=== PATIENT | female | born 1935 | race Caucasian/White ===

== ENCOUNTER → 2018-07-07 14:44 | Outpatient (CLI) | payer OTHER, SELFPAY ==
[2018-07-07 15:22] LABS: INR 2.5 (0.9-1.3); Prothrombin Time 27.5 SECONDS (10.1-12.7)
== END ==
PROVIDERS: Family Provider Family Medicine; PCP Family Medicine; Visit Provider Internal Medicine
DX: Z79.01 Long term (current) use of anticoagulants (principal)
CPT/HCPCS: 36415; 85610

== ENCOUNTER → 2018-11-06 14:12 | Outpatient (CLI) | payer OTHER, SELFPAY ==
[2018-11-06 16:03] LABS: Bacteria Urine None Seen
[2018-11-06 16:40] LABS: Appearance Urine UA CLOUDY; Bilirubin Urine UA NEGATIVE (NEGATIVE); Color Urine UA YELLOW; Glucose Urine UA NEGATIVE (Negative); Ketones Urine UA NEGATIVE (NEGATIVE); Leukocyte Esterase Urine UA 1+ (NEGATIVE); Nitrite Urine UA POSITIVE (Negative); Occult Blood Urine UA 1+ (Negative); Protein Urine UA TRACE (Negative); Urobilinogen Urine UA 0.2 E.U./dL (0.2); pH Urine UA 7.5 (4.5-8.0)
[2018-11-06 16:55] LABS: RBC Urine 5-10/HPF (0-5/HPF); Squamous Epithelial Cell Urine 0-1 /HPF; WBC Urine 30-100/HPF (0-5/HPF)
[2018-11-06 16:56] LABS: Culture Indicated Urine Specimen Cultured
== END ==
PROVIDERS: Family Provider Family Medicine; PCP Family Medicine; Visit Provider Registered Nurse
DX: N39.0 Urinary tract infection, site not specified (principal)
CPT/HCPCS: 81001; 87077; 87086; 87186

== ENCOUNTER → 2018-11-06 14:29 | Outpatient (CLI) | payer OTHER, SELFPAY ==
[2018-11-06 15:19] LABS: INR 1.7 (0.9-1.3); Prothrombin Time 20.4 SECONDS (10.1-12.7)
== END ==
PROVIDERS: Family Provider Family Medicine; PCP Family Medicine; Visit Provider Registered Nurse
DX: I82.409 Acute embolism and thrombosis of unspecified deep veins of unspecified lower extremity (principal); Z79.01 Long term (current) use of anticoagulants
CPT/HCPCS: 36415; 81001; 85610; 87077; 87086; 87186

== ENCOUNTER → 2019-01-26 09:32 | Outpatient (CLI) | payer OTHER, SELFPAY ==
--- NOTE | 2019-01-26 | DI.MG.S_ITS ---
BILATERAL DIGITAL SCREENING MAMMOGRAM 3D/2D WITH CAD: 01/26/2019 CLINICAL: Routine screening. Comparison is made to exams dated: 01/09/2018 mammogram, 11/29/2016 mammogram, 11/28/2015 mammogram, and 04/06/2014 mammogram - [facility]. There are scattered fibroglandular elements in both breasts. Current study was also evaluated with a Computer Aided Detection (CAD) system. There are benign vascular calcifications in both breasts. No significant masses, calcifications, or other findings are seen in either breast. There has been no significant interval change. IMPRESSION: There is no mammographic evidence of malignancy. A 1 year screening mammogram is recommended. This exam was interpreted at Station ID: [id number]. NOTE: For mammograms, a report in lay terms will be sent to the patient. Approximately 15% of breast malignancies will not be visualized mammographically. In the management of a palpable breast mass, a negative mammogram must not discourage biopsy of a clinically suspicious lesion. Electronically Signed By: Phil caldwell/yasmin:01/26/2019 13:56:38 letter sent: Normal Exam ACR BI-RADS Category 2: Benign Finding(s) 3342F
== END ==
PROVIDERS: PCP Family Medicine; Visit Provider Family Medicine
DX: Z12.31 Encounter for screening mammogram for malignant neoplasm of breast (principal)
CPT/HCPCS: 77063; 77067

== ENCOUNTER → 2019-01-27 10:05 | Outpatient (CLI) | payer OTHER, SELFPAY ==
[2019-01-27 10:44] LABS: INR 1.5 (0.9-1.3); Prothrombin Time 17.8 SECONDS (10.1-12.7)
[2019-01-27 12:53] LABS: Thyroid Stimulating Hormone 2.71 uIU/mL (0.47-4.68)
== END ==
PROVIDERS: PCP Family Medicine; Visit Provider Family Medicine
DX: Z86.718 Personal history of other venous thrombosis and embolism (principal); E03.9 Hypothyroidism, unspecified
CPT/HCPCS: 36415; 84443; 85610

== ENCOUNTER → 2019-02-02 10:06 | Outpatient (CLI) | payer OTHER, SELFPAY ==
--- NOTE | 2019-02-02 10:07 | DI.RAD.S_ITS ---
PROCEDURE: FL BARIUM SWALLOW INDICATIONS: dysphagia COMPARISON: [facility], CR, CHEST 2 VIEW, 10/28/2014, 14:10. [facility], MG, MM SCREENING MAMMO BI, 01/26/2019, 9:51. FINDINGS: Function: There is mild esophageal dysmotility. No elicited gastroesophageal reflux. There is normal transit of a calibrated barium tablet through the esophagus into the stomach. Morphology: Air-contrast images demonstrate normal mucosal morphology. There is a large hiatal hernia with 40% of the stomach within the thorax. The gastroesophageal junction is suboptimally visualized because of a large hiatal hernia. The GE junction may be narrowed. Single contrast views show no esophageal strictures, extrinsic mass effects, or diverticula. IMPRESSION: 1. Large hiatal hernia. 2. The gastroesophageal junction is suboptimally visualized and may be narrowed. There is, however, no obstruction of the calibrated barium pill. 3. Mild esophageal dysmotility. Dictated by: Emigdio Alas M.D. on 02/02/2019 at 11:10 Approved by: Emigdio Alas M.D. on 02/02/2019 at 11:16
== END ==
PROVIDERS: PCP Family Medicine; Visit Provider Family Medicine
DX: R13.10 Dysphagia, unspecified (principal); K44.9 Diaphragmatic hernia without obstruction or gangrene; K22.4 Dyskinesia of esophagus
CPT/HCPCS: 74220

== ENCOUNTER → 2019-02-09 11:59 | Outpatient (CLI) | payer OTHER, SELFPAY ==
[2019-02-09 13:38] LABS: INR 1.8 (0.9-1.3); Prothrombin Time 20.9 SECONDS (10.1-12.7)
== END ==
PROVIDERS: PCP Family Medicine; Visit Provider Family Medicine
DX: I82.409 Acute embolism and thrombosis of unspecified deep veins of unspecified lower extremity (principal)
CPT/HCPCS: 36415; 85610

== ENCOUNTER → 2019-04-26 11:24 | Outpatient (CLI) | payer OTHER, SELFPAY ==
--- NOTE | 2019-04-26 11:27 | DI.RAD.S_ITS ---
PROCEDURE: XR CHEST 2V INDICATIONS: breast plate pain from fall TECHNIQUE: 2 views of the chest were acquired. COMPARISON: [facility], CHEST 2 VIEW, 10/28/2014, 14:10. [facility], CHEST 2 VIEW, 03/04/2014, 14:20. FINDINGS: Surgical changes and devices: None. Lungs and pleura: Lungs are clear. No pleural effusions or pneumothorax. Moderately large air-fluid level in the hiatal hernia behind the heart. Mediastinum: Mediastinal contours are normal. Heart size is normal. Bones and chest wall: No suspicious bony abnormalities. Soft tissues appear unremarkable. IMPRESSION: Moderately large hiatal hernia behind the heart, containing air-fluid level. No acute trauma found. Dictated by: Arie Valdes M.D. on 04/26/2019 at 12:39 Approved by: Arie Valdes M.D. on 04/26/2019 at 12:42
[2019-04-26 12:28] LABS: Add Manual Diff / Slide Review NO; Basophils Absolute Auto 0 /uL (0-100); Basophils Percent Auto 1.1 % (0-2); Eosinophils Absolute Auto 100 /uL (0-450); Eosinophils Percent Auto 2.2 % (2-4); Hematocrit 37.1 % (36-46); Hemoglobin 12.3 g/dL (12.0-16.0); Lymphocytes Absolute Auto 700 /uL (1100-4500); Lymphocytes Percent Auto 21.9 % (25-40); Mean Corpuscular HGB Conc 33.1 % (30-36); Mean Corpuscular Hemoglobin 29.6 PG (26-34); Mean Corpuscular Volume 89.4 fL (80-100); Monocytes Absolute Auto 500 /uL (0-900); Monocytes Percent Auto 15.6 % (3-14); Neutrophils Absolute Auto 1800 /uL (1500-7000); Neutrophils Percent Auto 59.2 % (50-75); Platelet Count 267 X10^3/uL (150-400); Red Blood Cell Count 4.15 X10^6/uL (4.0-5.2); Red Cell Distribution Width 15.6 % (11.6-14.8); White Blood Cell Count 3.1 X10^3/uL (4.5-11.0)
[2019-04-26 13:58] LABS: HEMOLYSIS < 15 (0-50); Iron 62 ug/dL (37-170)
[2019-04-26 14:09] LABS: Percent Iron Saturation 15 % (15-50); Total Iron Binding Capacity 424 ug/dL (265-497); Transferrin 329 mg/dL (206-381)
[2019-04-26 15:12] LABS: Folate 7.7 ng/mL (2.76-20.0); Vitamin B12 343 pg/mL (239-931)
== END ==
PROVIDERS: PCP Family Medicine; Visit Provider Family Medicine
DX: R07.9 Chest pain, unspecified (principal); R53.83 Other fatigue; K44.9 Diaphragmatic hernia without obstruction or gangrene
CPT/HCPCS: 36415; 71046; 82607; 82746; 83540; 83550; 85025

== ENCOUNTER 2019-06-22 10:30 | Outpatient (RCR) | payer OTHER, SELFPAY ==
--- NOTE | 2019-05-12 17:47 | PT.OIE ---
Current Diagnoses Pain in left shoulder (05/12/19) Stiffness of left shoulder, not elsewhere classified (05/12/19) Muscle weakness (generalized) (05/12/19) Unspecified injury of muscle(s) and tendon(s) of the rotator cuff of left shoulder, subsequent encounter (05/12/19) Past Medical History (Last Reviewed 05/14/18 @ 17:04 by Arina Dallas MD) Depression (Chronic) DVT (deep venous thrombosis) (Resolved) Hyperlipidemia (Chronic) Hypothyroidism (Chronic) Osteoporosis (Chronic) Colon polyps (Resolved 2014) Tubular adenoma (Resolved 2014) Provider Visit Care Team Role Provider Type Eliz Ha MD Attending Provider Physician Primary Care Provider Specialty: [facility] Practice Address: [address] [place] [address] Email: [email or web address] Physical Therapy Initial Evaluation PT-OP-A Visit Information Start: 05/12/19 16:18 Freq: Status: Active Protocol: Document 05/12/19 13:45 DCW (Rec: 05/12/19 16:37 DCW [id number]) Out-Patient Physical Therapy Visit Information Visit Information Visit Type Initial Evaluation Visit Start Time 13:45 Visit Stop Time 14:30 Total Visit Minutes 45 Visit Number 1 Number of CHIEF STEWARD/STEWARDESS Visits 0 Evaluation Information Evaluation Date 05/12/19 PT-OP-B Current Condition Start: 05/12/19 16:18 Freq: Status: Active Protocol: Document 05/12/19 13:45 DCW (Rec: 05/12/19 16:37 DCW [id number]) Current Condition History of Current Condition Onset Date Two months Current Complaints Left shoulder pain, weakness, and decreasing ROM History of Current Condition Pt is an 84 year old female presenting with a two month- long history of left shoulder pain and loss of motion. Pt reports that she typically wears very heavy-duty support stockings on her legs. She was attempting to take them off, and had her left one down around her ankle, had her finger looped inside, and was attempting to work her stocking over her heel, when she suddenly got a terrible pain in her shoulder. Since that time, pt has had pain and limitations when lifting anything up chest-high, pushing open doors, or trying to reach back and get her sleeve on or off. This pain greatly affects her on a daily basis, especially because she is left-hand dominant. Treatment Goals Patient/Caregiver Goals I want to find out what the problem is, and learn how to make it feel better. Prior Functional Status Baseline Function- ADL's Independent Baseline Function- Mobility Independent Current Functional Impairments (Reported) Functional Limitations- ADL's Pt has increase pain lifting drinks, reaching behind her back to put her arm in a sleeve, or push doors open. PT-OP-C Subjective Start: 05/12/19 16:18 Freq: Status: Active Protocol: Document 05/12/19 13:45 DCW (Rec: 05/12/19 16:37 DCW [id number]) OP-PT Subjective Patient Comments Patient Comments I also have back problems that need taken care of, and I recently fell off my bed and sprained all of the muscles in the front of my chest, but I think they both just need time to heal, so I'm much more concerned about addressing my shoulder. Patient Reported Progress Improving Patient Questionnaires Quick Dash- Upper Extremity Quick Dash UE Score 37.5 Quick Dash UE Impairment 20 to 39% Impaired (Score 20- 39) OP-PT Pain Assessment Pain Assessment Grid Paper Pain Assessment Grid Completed Yes Location Left Shoulder Intensity 3 Scale Used Numeric (1 - 10) PT-OP-E Functional Tests Start: 05/12/19 16:18 Freq: Status: Active Protocol: Document 05/12/19 13:45 DCW (Rec: 05/12/19 16:37 DCW [id number]) Functional Tests Apley's Scratch Test Action 2- Left Left occiput Action 2- Right T4 Action 3- Left L4 Action 3- Right T6 PT-OP-F Manual Assessment Start: 05/12/19 16:18 Freq: Status: Active Protocol: Document 05/12/19 13:45 DCW (Rec: 05/12/19 16:37 DCW [id number]) Manual Assessments Soft Tissue Assessment Soft Tissue Mobility Assessment Moderate tone and tenderness to palpation 3/4 - Wincing and withdraw along infraspinatus, supraspinatus, and subscapularis PT-OP-K Range of Motion Start: 05/12/19 16:18 Freq: Status: Active Protocol: Document 05/12/19 13:45 DCW (Rec: 05/12/19 16:37 DCW [id number]) Shoulder Goniometric Range of Motion Shoulder Right Shoulder ROM WFL Yes Left Passive Testing Position Supine Flexion 120 Abduction 135 Left Active Shoulder ROM WFL No Testing Position Sitting Flexion 94 Abduction 72 Shoulder ROM Limitations Shoulder ROM Limitations Muscle Weakness Muscle Tone Pain PT-OP-L Special Tests Start: 05/12/19 16:18 Freq: Status: Active Protocol: Document 05/12/19 13:45 DCW (Rec: 05/12/19 16:37 DCW [id number]) Special Tests Shoulder Special Tests Painful Arc Test Results Positive L Lift-Off Rotator Cuff Test Results Unable to lift Passive ER Rotator Cuff Test Results Positive L Thakkar [place] Impingement Test Results Negative Drop Arm Rotator Cuff Test Results Positive L Belly Press Test Results Negative PT-OP-M Strength Start: 05/12/19 16:18 Freq: Status: Active Protocol: Document 05/12/19 13:45 DCW (Rec: 05/12/19 16:37 DCW [id number]) Shoulder Strength Shoulder Manual Muscle Testing Left Reason Not Measured Pain PT-OP-Q Treatments Start: 05/12/19 16:18 Freq: Status: Active Protocol: Document 05/12/19 13:45 DCW (Rec: 05/12/19 16:37 DCW [id number]) Therapeutic Exercises Standing Exercises Shoulder ER Standing Exercise Name ER Side left Resistance Lv 1 Equipment Used T-band Shoulder IR Standing Exercise Name IR Side left Resistance Lv 1 Equipment Used T-band PT-OP-T Assessment and Plan Start: 05/12/19 16:18 Freq: Status: Active Protocol: Document 05/12/19 13:45 DCW (Rec: 05/12/19 17:46 DCW [id number]) Physical Therapy Assessment Rehab Potential Rehabilitation Potential Good Evaluation Complexity Number of Personal Factors/Comorbidities 1-2 Number of Body Systems Impaired 3 Clinical Presentation at Evaluation Stable Impairments Impairments Functional Activities Functional Mobility Pain ROM Soft Tissue Mobility Strength Tone Goals Three Impairment Limited left shoulder ROM Short Term Goal (STG) Passive left shoulder ROM to 150? for both flexion and abduction STG Duration 06/12/19 Half-Way Goal (LTG) Active left shoulder ROM to 110? for both flexion and extension LTG Duration 07/13/19 Two Impairment Pt experiences increased pain with lifting arms Short Term Goal (STG) Pt to lift drink off table to drink from with no increased shoulder pain STG Duration 06/12/19 Half-Way Goal (LTG) Pt to reach behind her back to put arm in coat sleeve with no increased pain LTG Duration 07/13/19 One Impairment Pt does not have an appropriate home exercise program Short Term Goal (STG) Pt to be independent and compliant with an appropriate HEP STG Duration 06/12/19 Assessment Summary Assessment Pt is an 84 year-old female presenting with signs and symptoms of a left rotator cuff sprain or mild tear. Pt may have involvement of multiple muscles, with her painful arc and drop arm tests suggestive of supraspinatus involvement, and lift-off test and passive ER pain suggestive of derangement of the subscapularis. No indication of labral involvement at this time. Pt will likely benefit from gentle strengthening, ROM/ flexibility exercises, STM, and pain-control modalities. If pt does not show appropriate progress over the next month, may be necessary to undergo imaging to determine extent of damage. Physical Therapy Plan Frequency and Duration Frequency of Treatment 2x/Week Duration of Treatment 12 weeks Plan of Care Start Date 05/12/19 Plan of Care End Date 07/21/19 Therapeutic Interventions Therapeutic Interventions Home Exercise Program Joint Mobilizations Manual Therapy Patient/Caregiver Education Self-Care/Home Management Soft Tissue Mobilization Taping Therapeutic Activities Therapeutic Exercises Modalities Cold Pack/Ice Massage Electric Stimulation Hot Packs Ultrasound Next Visit Focus/Plan Next Note Type Treatment Note Next Visit Plan Gentle strengthening, STM, ROM
--- NOTE | 2019-05-12 17:48 | PT.OPPOC ---
Current Diagnoses Pain in left shoulder (05/12/19) Stiffness of left shoulder, not elsewhere classified (05/12/19) Muscle weakness (generalized) (05/12/19) Unspecified injury of muscle(s) and tendon(s) of the rotator cuff of left shoulder, subsequent encounter (05/12/19) Provider Visit Care Team Role Provider Type Eliz Ha MD Attending Provider Physician Primary Care Provider Specialty: [facility] Practice Address: [address] [place] [address], [facility] Email: [email or web address] Plan Of Care PT-OP-T Assessment and Plan Start: 05/12/19 16:18 Freq: Status: Active Protocol: Document 05/12/19 13:45 DCW (Rec: 05/12/19 17:46 DCW [id number]) Physical Therapy Assessment Rehab Potential Rehabilitation Potential Good Evaluation Complexity Number of Personal Factors/Comorbidities 1-2 Number of Body Systems Impaired 3 Clinical Presentation at Evaluation Stable Impairments Impairments Functional Activities Functional Mobility Pain ROM Soft Tissue Mobility Strength Tone Goals Three Impairment Limited left shoulder ROM Short Term Goal (STG) Passive left shoulder ROM to 150? for both flexion and abduction STG Duration 06/12/19 Concrete Technician Goal (LTG) Active left shoulder ROM to 110? for both flexion and extension LTG Duration 07/13/19 Two Impairment Pt experiences increased pain with lifting arms Short Term Goal (STG) Pt to lift drink off table to drink from with no increased shoulder pain STG Duration 06/12/19 Residential Goal (LTG) Pt to reach behind her back to put arm in coat sleeve with no increased pain LTG Duration 07/13/19 One Impairment Pt does not have an appropriate home exercise program Short Term Goal (STG) Pt to be independent and compliant with an appropriate HEP STG Duration 06/12/19 Assessment Summary Assessment Pt is an 84 year-old female presenting with signs and symptoms of a left rotator cuff sprain or mild tear. Pt may have involvement of multiple muscles, with her painful arc and drop arm tests suggestive of supraspinatus involvement, and lift-off test and passive ER pain suggestive of derangement of the subscapularis. No indication of labral involvement at this time. Pt will likely benefit from gentle strengthening, ROM/ flexibility exercises, STM, and pain-control modalities. If pt does not show appropriate progress over the next month, may be necessary to undergo imaging to determine extent of damage. Physical Therapy Plan Frequency and Duration Frequency of Treatment 2x/Week Duration of Treatment 12 weeks Plan of Care Start Date 05/12/19 Plan of Care End Date 07/21/19 Therapeutic Interventions Therapeutic Interventions Home Exercise Program Joint Mobilizations Manual Therapy Patient/Caregiver Education Self-Care/Home Management Soft Tissue Mobilization Taping Therapeutic Activities Therapeutic Exercises Modalities Cold Pack/Ice Massage Electric Stimulation Hot Packs Ultrasound Next Visit Focus/Plan Next Note Type Treatment Note Next Visit Plan Gentle strengthening, STM, ROM Plan of Care Dates Plan of Care Start Date 05/12/19 Plan of Care End Date 07/21/19 Please Sign and Return: I have reviewed this Plan of Care and certify that the skilled therapy services above are required to meet the patient?s needs. Physician Signature Date Printed Name and Credentials Clinical Instructor Signature Printed Name and Credentials
--- NOTE | 2019-06-01 17:39 | PT.OTN ---
Current Diagnoses Pain in left shoulder (06/01/19) Stiffness of left shoulder, not elsewhere classified (06/01/19) Muscle weakness (generalized) (06/01/19) Unspecified injury of muscle(s) and tendon(s) of the rotator cuff of left shoulder, subsequent encounter (06/01/19) Physical Therapy Treatment Note PT-OP-A Visit Information Start: 05/12/19 16:18 Freq: Status: Active Protocol: Document 06/01/19 16:00 DCW (Rec: 06/01/19 16:45 DCW [id number]) Out-Patient Physical Therapy Visit Information Visit Information Visit Type Initial Evaluation Visit Start Time 16:00 Visit Stop Time 16:45 Total Visit Minutes 45 Visit Number 2 Number of SHOE DRESSER Visits 0 Evaluation Information Evaluation Date 05/12/19 PT-OP-B Current Condition Start: 05/12/19 16:18 Freq: Status: Active Protocol: Document 05/12/19 13:45 DCW (Rec: 05/12/19 16:37 DCW [id number]) Current Condition History of Current Condition Onset Date Two months Current Complaints Left shoulder pain, weakness, and decreasing ROM History of Current Condition Pt is an 84 year old female presenting with a two month- long history of left shoulder pain and loss of motion. Pt reports that she typically wears very heavy-duty support stockings on her legs. She was attempting to take them off, and had her left one down around her ankle, had her finger looped inside, and was attempting to work her stocking over her heel, when she suddenly got a terrible pain in her shoulder. Since that time, pt has had pain and limitations when lifting anything up chest-high, pushing open doors, or trying to reach back and get her sleeve on or off. This pain greatly affects her on a daily basis, especially because she is left-hand dominant. Treatment Goals Patient/Caregiver Goals I want to find out what the problem is, and learn how to make it feel better. Prior Functional Status Baseline Function- ADL's Independent Baseline Function- Mobility Independent Current Functional Impairments (Reported) Functional Limitations- ADL's Pt has increase pain lifting drinks, reaching behind her back to put her arm in a sleeve, or push doors open. PT-OP-C Subjective Start: 05/12/19 16:18 Freq: Status: Active Protocol: Document 06/01/19 16:00 DCW (Rec: 06/01/19 16:45 DCW [id number]) OP-PT Subjective Patient Comments Patient Comments Pt feel like she has improved some since her initial evaluation, if nothing else, just with the time that has passed letting it heal a little bit. PT-OP-E Functional Tests Start: 05/12/19 16:18 Freq: Status: Active Protocol: Document 05/12/19 13:45 DCW (Rec: 05/12/19 16:37 DCW [id number]) Functional Tests Apley's Scratch Test Action 2- Left Left occiput Action 2- Right T4 Action 3- Left L4 Action 3- Right T6 PT-OP-F Manual Assessment Start: 05/12/19 16:18 Freq: Status: Active Protocol: Document 05/12/19 13:45 DCW (Rec: 05/12/19 16:37 DCW [id number]) Manual Assessments Soft Tissue Assessment Soft Tissue Mobility Assessment Moderate tone and tenderness to palpation 3/4 - Wincing and withdraw along infraspinatus, supraspinatus, and subscapularis PT-OP-K Range of Motion Start: 05/12/19 16:18 Freq: Status: Active Protocol: Document 05/12/19 13:45 DCW (Rec: 05/12/19 16:37 DCW [id number]) Shoulder Goniometric Range of Motion Shoulder Right Shoulder ROM WFL Yes Left Passive Testing Position Supine Flexion 120 Abduction 135 Left Active Shoulder ROM WFL No Testing Position Sitting Flexion 94 Abduction 72 Shoulder ROM Limitations Shoulder ROM Limitations Muscle Weakness Muscle Tone Pain PT-OP-L Special Tests Start: 05/12/19 16:18 Freq: Status: Active Protocol: Document 05/12/19 13:45 DCW (Rec: 05/12/19 16:37 DCW [id number]) Special Tests Shoulder Special Tests Painful Arc Test Results Positive L Lift-Off Rotator Cuff Test Results Unable to lift Passive ER Rotator Cuff Test Results Positive L Thakkar [place] Impingement Test Results Negative Drop Arm Rotator Cuff Test Results Positive L Belly Press Test Results Negative PT-OP-M Strength Start: 05/12/19 16:18 Freq: Status: Active Protocol: Document 05/12/19 13:45 DCW (Rec: 05/12/19 16:37 DCW [id number]) Shoulder Strength Shoulder Manual Muscle Testing Left Reason Not Measured Pain PT-OP-Q Treatments Start: 05/12/19 16:18 Freq: Status: Active Protocol: Document 06/01/19 16:00 DCW (Rec: 06/01/19 16:45 DCW [id number]) Cardio Equipment Upper Body Ergometer (UBE) Duration (Minutes) 5 RPM 60 Seat Position 11 Height 3.5 (2.5 bkwd) Other Fwd/Bkwd Therapeutic Exercises Sitting Exercises Shoulder AAROM Sitting Exercise Name AAROM Flexion and Abduction Side bilateral Equipment Used Pulleys Standing Exercises Shoulder Abduction Standing Exercise Name Abduction Side bilateral Resistance 1# Shoulder Flexion Standing Exercise Name Flexion Side bilateral Resistance 1# Rows Standing Exercise Name Rows Side bilateral Resistance Lv 1 Equipment Used T-band Shoulder Adduction Standing Exercise Name Adduction Side bilateral Resistance Lv 1 Equipment Used T-band Shoulder Extension Standing Exercise Name Extension Side bilateral Resistance Lv 1 Equipment Used T-band Manual Therapy Treatment Soft Tissue Mobilization Upper Trap Body Location L Upper Trap Mobilization Type Strumming Sustained Pressure Body Position Sitting Supraspinatus Body Location L Supraspinatus Mobilization Type Strumming Sustained Pressure Body Position Sitting PT-OP-T Assessment and Plan Start: 05/12/19 16:18 Freq: Status: Active Protocol: Document 06/01/19 16:00 DCW (Rec: 06/01/19 17:38 DCW [id number]) Physical Therapy Assessment Impairments Impairments Functional Activities Functional Mobility Pain ROM Soft Tissue Mobility Strength Tone Goals Three Impairment Limited left shoulder ROM Short Term Goal (STG) Passive left shoulder ROM to 150? for both flexion and abduction STG Duration 06/12/19 Clamp Truck Driver Goal (LTG) Active left shoulder ROM to 110? for both flexion and extension LTG Duration 07/13/19 Two Impairment Pt experiences increased pain with lifting arms Short Term Goal (STG) Pt to lift drink off table to drink from with no increased shoulder pain STG Duration 06/12/19 Clamp Truck Driver Goal (LTG) Pt to reach behind her back to put arm in coat sleeve with no increased pain LTG Duration 07/13/19 One Impairment Pt does not have an appropriate home exercise program Short Term Goal (STG) Pt to be independent and compliant with an appropriate HEP STG Duration 06/12/19 Assessment Summary Assessment Pt progressing well, improved ROM in her shoulder and active mobility today vs her initial evaluation. Pt's shoulder does fatigue quickly with activity, and can only tolerate light resistance. Physical Therapy Plan Frequency and Duration Frequency of Treatment 2x/Week Duration of Treatment 12 weeks Plan of Care Start Date 05/12/19 Plan of Care End Date 07/21/19 Therapeutic Interventions Therapeutic Interventions Home Exercise Program Joint Mobilizations Manual Therapy Patient/Caregiver Education Self-Care/Home Management Soft Tissue Mobilization Taping Therapeutic Activities Therapeutic Exercises Modalities Cold Pack/Ice Massage Electric Stimulation Hot Packs Ultrasound Next Visit Focus/Plan Next Note Type Treatment Note Next Visit Plan Gentle strengthening, STM, ROM
--- NOTE | 2019-06-22 11:15 | PT.OTN ---
Current Diagnoses Pain in left shoulder (06/22/19) Stiffness of left shoulder, not elsewhere classified (06/22/19) Muscle weakness (generalized) (06/22/19) Unspecified injury of muscle(s) and tendon(s) of the rotator cuff of left shoulder, subsequent encounter (06/22/19) Physical Therapy Treatment Note PT-OP-A Visit Information Start: 05/12/19 16:18 Freq: Status: Active Protocol: Document 06/22/19 10:30 DCW (Rec: 06/22/19 11:15 DCW [id number]) Out-Patient Physical Therapy Visit Information Visit Information Visit Type Treatment Note Visit Start Time 10:30 Visit Stop Time 11:15 Total Visit Minutes 45 Visit Number 3 Number of ENDLESS BED DRUM SANDER Visits 0 Evaluation Information Evaluation Date 05/12/19 PT-OP-B Current Condition Start: 05/12/19 16:18 Freq: Status: Active Protocol: Document 05/12/19 13:45 DCW (Rec: 05/12/19 16:37 DCW [id number]) Current Condition History of Current Condition Onset Date Two months Current Complaints Left shoulder pain, weakness, and decreasing ROM History of Current Condition Pt is an 84 year old female presenting with a two month- long history of left shoulder pain and loss of motion. Pt reports that she typically wears very heavy-duty support stockings on her legs. She was attempting to take them off, and had her left one down around her ankle, had her finger looped inside, and was attempting to work her stocking over her heel, when she suddenly got a terrible pain in her shoulder. Since that time, pt has had pain and limitations when lifting anything up chest-high, pushing open doors, or trying to reach back and get her sleeve on or off. This pain greatly affects her on a daily basis, especially because she is left-hand dominant. Treatment Goals Patient/Caregiver Goals I want to find out what the problem is, and learn how to make it feel better. Prior Functional Status Baseline Function- ADL's Independent Baseline Function- Mobility Independent Current Functional Impairments (Reported) Functional Limitations- ADL's Pt has increase pain lifting drinks, reaching behind her back to put her arm in a sleeve, or push doors open. PT-OP-C Subjective Start: 05/12/19 16:18 Freq: Status: Active Protocol: Document 06/22/19 10:30 DCW (Rec: 06/22/19 11:15 DCW [id number]) OP-PT Subjective Patient Comments Patient Comments Pt suffered a fall ~3 weeks ago while gardening when trying to pull against her garden hose, reports her whole chest was bruised, and she felt like she cracked a rib. Notes she is feeling better now, everything seems to be healing up. PT-OP-E Functional Tests Start: 05/12/19 16:18 Freq: Status: Active Protocol: Document 05/12/19 13:45 DCW (Rec: 05/12/19 16:37 DCW [id number]) Functional Tests Apley's Scratch Test Action 2- Left Left occiput Action 2- Right T4 Action 3- Left L4 Action 3- Right T6 PT-OP-F Manual Assessment Start: 05/12/19 16:18 Freq: Status: Active Protocol: Document 05/12/19 13:45 DCW (Rec: 05/12/19 16:37 DCW [id number]) Manual Assessments Soft Tissue Assessment Soft Tissue Mobility Assessment Moderate tone and tenderness to palpation 3/4 - Wincing and withdraw along infraspinatus, supraspinatus, and subscapularis PT-OP-K Range of Motion Start: 05/12/19 16:18 Freq: Status: Active Protocol: Document 05/12/19 13:45 DCW (Rec: 05/12/19 16:37 DCW [id number]) Shoulder Goniometric Range of Motion Shoulder Right Shoulder ROM WFL Yes Left Passive Testing Position Supine Flexion 120 Abduction 135 Left Active Shoulder ROM WFL No Testing Position Sitting Flexion 94 Abduction 72 Shoulder ROM Limitations Shoulder ROM Limitations Muscle Weakness Muscle Tone Pain PT-OP-L Special Tests Start: 05/12/19 16:18 Freq: Status: Active Protocol: Document 05/12/19 13:45 DCW (Rec: 05/12/19 16:37 DCW [id number]) Special Tests Shoulder Special Tests Painful Arc Test Results Positive L Lift-Off Rotator Cuff Test Results Unable to lift Passive ER Rotator Cuff Test Results Positive L Thakkar [place] Impingement Test Results Negative Drop Arm Rotator Cuff Test Results Positive L Belly Press Test Results Negative PT-OP-M Strength Start: 05/12/19 16:18 Freq: Status: Active Protocol: Document 05/12/19 13:45 DCW (Rec: 05/12/19 16:37 DCW [id number]) Shoulder Strength Shoulder Manual Muscle Testing Left Reason Not Measured Pain PT-OP-Q Treatments Start: 05/12/19 16:18 Freq: Status: Active Protocol: Document 06/22/19 10:30 DCW (Rec: 06/22/19 11:15 DCW [id number]) Cardio Equipment Upper Body Ergometer (UBE) Duration (Minutes) 5 RPM 60 Seat Position 12 Height 3 Other Fwd/Bkwd Therapeutic Exercises Standing Exercises PNF D1/D2 Flexion Standing Exercise Name PNF D1/D2 Flexion Side bilateral Resistance 2# Shoulder Abduction Standing Exercise Name Abduction Side bilateral Resistance 1# Shoulder Flexion Standing Exercise Name Flexion Side bilateral Resistance 1# Rows Standing Exercise Name Rows Side bilateral Resistance Lv 2 Equipment Used T-band Shoulder Adduction Standing Exercise Name Adduction Side bilateral Resistance Lv 2 Equipment Used T-band Shoulder Extension Standing Exercise Name Extension Side bilateral Resistance Lv 2 Equipment Used T-band Manual Therapy Treatment Soft Tissue Mobilization Upper Trap Body Location L Upper Trap Mobilization Type Strumming Sustained Pressure Body Position Sitting Supraspinatus Body Location L Supraspinatus Mobilization Type Strumming Sustained Pressure Body Position Sitting Joint Mobilizations GH Joint L GH Direction inferior Grade III Body Position Sitting PT-OP-T Assessment and Plan Start: 05/12/19 16:18 Freq: Status: Active Protocol: Document 06/22/19 10:30 DCW (Rec: 06/22/19 11:15 DCW [id number]) Physical Therapy Assessment Impairments Impairments Functional Activities Functional Mobility Pain ROM Soft Tissue Mobility Strength Tone Goals Three Impairment Limited left shoulder ROM Short Term Goal (STG) Passive left shoulder ROM to 150? for both flexion and abduction STG Duration 06/12/19 Prison Goal (LTG) Active left shoulder ROM to 110? for both flexion and extension LTG Duration 07/13/19 Two Impairment Pt experiences increased pain with lifting arms Short Term Goal (STG) Pt to lift drink off table to drink from with no increased shoulder pain STG Duration 06/12/19 Finish Cleaner Goal (LTG) Pt to reach behind her back to put arm in coat sleeve with no increased pain LTG Duration 07/13/19 One Impairment Pt does not have an appropriate home exercise program Short Term Goal (STG) Pt to be independent and compliant with an appropriate HEP STG Duration 06/12/19 Assessment Summary Assessment Pt showing improvement, even from beginning of session to end, with tone and soreness in shoulder. Physical Therapy Plan Frequency and Duration Frequency of Treatment 2x/Week Duration of Treatment 12 weeks Plan of Care Start Date 05/12/19 Plan of Care End Date 07/21/19 Therapeutic Interventions Therapeutic Interventions Home Exercise Program Joint Mobilizations Manual Therapy Patient/Caregiver Education Self-Care/Home Management Soft Tissue Mobilization Taping Therapeutic Activities Therapeutic Exercises Modalities Cold Pack/Ice Massage Electric Stimulation Hot Packs Ultrasound Next Visit Focus/Plan Next Note Type Treatment Note Next Visit Plan Gentle strengthening, STM, ROM
--- NOTE | 2019-08-27 08:47 | PT.OPDS ---
Current Diagnoses Pain in left shoulder (06/22/19) Stiffness of left shoulder, not elsewhere classified (06/22/19) Muscle weakness (generalized) (06/22/19) Unspecified injury of muscle(s) and tendon(s) of the rotator cuff of left shoulder, subsequent encounter (06/22/19) Visit Care Team Role Provider Type Eliz Ha MD Attending Provider Physician Primary Care Provider Specialty: [facility] Address: [address] [place] [address], [place], [place], [facility] Email: [email or web address] Visit Number Visit Number 3 Discharge Summary PT-OP-B Current Condition Start: 05/12/19 16:18 Freq: Status: Active Protocol: Document 05/12/19 13:45 DCW (Rec: 05/12/19 16:37 DCW [id number]) Current Condition History of Current Condition Onset Date Two months Current Complaints Left shoulder pain, weakness, and decreasing ROM History of Current Condition Pt is an 84 year old female presenting with a two month- long history of left shoulder pain and loss of motion. Pt reports that she typically wears very heavy-duty support stockings on her legs. She was attempting to take them off, and had her left one down around her ankle, had her finger looped inside, and was attempting to work her stocking over her heel, when she suddenly got a terrible pain in her shoulder. Since that time, pt has had pain and limitations when lifting anything up chest-high, pushing open doors, or trying to reach back and get her sleeve on or off. This pain greatly affects her on a daily basis, especially because she is left-hand dominant. Treatment Goals Patient/Caregiver Goals I want to find out what the problem is, and learn how to make it feel better. Prior Functional Status Baseline Function- ADL's Independent Baseline Function- Mobility Independent Current Functional Impairments (Reported) Functional Limitations- ADL's Pt has increase pain lifting drinks, reaching behind her back to put her arm in a sleeve, or push doors open. PT-OP-C Subjective Start: 05/12/19 16:18 Freq: Status: Active Protocol: Document 06/22/19 10:30 DCW (Rec: 06/22/19 11:15 DCW [id number]) OP-PT Subjective Patient Comments Patient Comments Pt suffered a fall ~3 weeks ago while gardening when trying to pull against her garden hose, reports her whole chest was bruised, and she felt like she cracked a rib. Notes she is feeling better now, everything seems to be healing up. PT-OP-E Functional Tests Start: 05/12/19 16:18 Freq: Status: Active Protocol: Document 05/12/19 13:45 DCW (Rec: 05/12/19 16:37 DCW [id number]) Functional Tests Apley's Scratch Test Action 2- Left Left occiput Action 2- Right T4 Action 3- Left L4 Action 3- Right T6 PT-OP-F Manual Assessment Start: 05/12/19 16:18 Freq: Status: Active Protocol: Document 05/12/19 13:45 DCW (Rec: 05/12/19 16:37 DCW [id number]) Manual Assessments Soft Tissue Assessment Soft Tissue Mobility Assessment Moderate tone and tenderness to palpation 3/4 - Wincing and withdraw along infraspinatus, supraspinatus, and subscapularis PT-OP-K Range of Motion Start: 05/12/19 16:18 Freq: Status: Active Protocol: Document 05/12/19 13:45 DCW (Rec: 05/12/19 16:37 DCW [id number]) Shoulder Goniometric Range of Motion Shoulder Right Shoulder ROM WFL Yes Left Passive Testing Position Supine Flexion 120 Abduction 135 Left Active Shoulder ROM WFL No Testing Position Sitting Flexion 94 Abduction 72 Shoulder ROM Limitations Shoulder ROM Limitations Muscle Weakness,Muscle Tone, Pain PT-OP-L Special Tests Start: 05/12/19 16:18 Freq: Status: Active Protocol: Document 05/12/19 13:45 DCW (Rec: 05/12/19 16:37 DCW [id number]) Special Tests Shoulder Special Tests Painful Arc Test Results Positive L Lift-Off Rotator Cuff Test Results Unable to lift Passive ER Rotator Cuff Test Results Positive L Thakkar [place] Impingement Test Results Negative Drop Arm Rotator Cuff Test Results Positive L Belly Press Test Results Negative PT-OP-M Strength Start: 05/12/19 16:18 Freq: Status: Active Protocol: Document 05/12/19 13:45 DCW (Rec: 05/12/19 16:37 DCW [id number]) Shoulder Strength Shoulder Manual Muscle Testing Left Reason Not Measured Pain PT-OP-T Assessment and Plan Start: 05/12/19 16:18 Freq: Status: Active Protocol: Document 08/27/19 08:45 DCW (Rec: 08/27/19 08:47 DCW [id number]) Physical Therapy Assessment Goals Three Impairment Limited left shoulder ROM Short Term Goal (STG) Passive left shoulder ROM to 150? for both flexion and abduction STG Duration 06/12/19 Custodial Goal (LTG) Active left shoulder ROM to 110? for both flexion and extension LTG Duration 07/13/19 Two Impairment Pt experiences increased pain with lifting arms Short Term Goal (STG) Pt to lift drink off table to drink from with no increased shoulder pain STG Duration 06/12/19 Custodial Goal (LTG) Pt to reach behind her back to put arm in coat sleeve with no increased pain LTG Duration 07/13/19 One Impairment Pt does not have an appropriate home exercise program Short Term Goal (STG) Pt to be independent and compliant with an appropriate HEP STG Duration 06/12/19 Assessment Summary Assessment Pt fell on her sore shoulder between her last attended session and her next scheduled session, called to cancel remaining appointments, stating she may reschedule in the future. Pt now, however, has not been seen in more than two months, and will be discharged from skilled therapy at this time. Physical Therapy Plan Frequency and Duration Frequency of Treatment 2x/Week Duration of Treatment 12 weeks Plan of Care Start Date 05/12/19 Plan of Care End Date 07/21/19 Discharge Physical Therapy Discharge Reasons Change in Medical Status Next Visit Focus/Plan Next Note Type Discharge Summary
== END 2019-06-22 11:30 ==
LOC: PHYS 10:30
PROVIDERS: PCP Family Medicine; Visit Provider Family Medicine
DX: M25.512 Pain in left shoulder (principal); M25.612 Stiffness of left shoulder, not elsewhere classified; M62.81 Muscle weakness (generalized); S46.002D Unspecified injury of muscle(s) and tendon(s) of the rotator cuff of left shoulder, subsequent encounter
CPT/HCPCS: 97110; 97140; 97161

== ENCOUNTER → 2019-06-26 11:22 | Outpatient (CLI) | payer OTHER, SELFPAY ==
--- NOTE | 2019-06-26 11:25 | DI.RAD.S_ITS ---
PROCEDURE: XR SHOULDER LT MIN 2V INDICATIONS: Left shoulder pain after fall TECHNIQUE: 3 views of the shoulder were acquired. COMPARISON: None. FINDINGS: Bones: No fractures or dislocations. No suspicious bony lesions. Visualized ribs appear intact. Mild to moderate degenerative changes of the left shoulder joints are present. There also appear to be degenerative changes of the included portions of the spine which are not well characterized. Soft tissues: No suspicious soft tissue calcifications. There is aortic atherosclerosis. IMPRESSION: Mild/moderate degenerative changes of the left shoulder joints. No fractures. Dictated by: Jeremiah Edwards M.D. on 06/26/2019 at 10:50 Approved by: Jeremiah Edwards M.D. on 06/26/2019 at 10:53
== END ==
PROVIDERS: PCP Family Medicine; Visit Provider Physician Assistant
DX: M25.512 Pain in left shoulder (principal); M81.0 Age-related osteoporosis without current pathological fracture; W19.XXXA Unspecified fall, initial encounter
CPT/HCPCS: 73030

== ENCOUNTER → 2019-07-02 08:01 | Outpatient (CLI) | payer OTHER, SELFPAY ==
--- NOTE | 2019-07-02 08:02 | DI.MRI.S_ITS ---
PROCEDURE: MR SHOULDER LT WO CON INDICATIONS: Exam suggests significant rotator cuff tear TECHNIQUE: Noncontrast oblique coronal T2 fast spin echo with fat saturation, oblique sagittal T1 spin echo and T2 fast spin echo with fat saturation, axial T1 spin echo and T2 fast spin echo with fat saturation through the shoulder. COMPARISON: [facility], CR, XR SHOULDER LT MIN 2V, 06/26/2019, 11:27. FINDINGS: Image quality: Excellent. Rotator cuff: There is tendinosis and moderate grade articular and bursal surface partial-thickness tear involving distal supraspinatus at its insertion the humeral head extending to the musculotendinous junction. Tendinosis and low-grade articular and bursal surface partial-thickness tear involving distal infraspinatus at its insertion the humeral head is seen. Distal subscapularis tendinosis and low-grade partial-thickness tear is seen. No full-thickness rotator cuff tendon rupture. Sagittal images demonstrate mild supraspinatus muscle atrophy. Bones and bursae: There is minimally impacted fracture involving surgical neck of left humerus with extensive marrow edema and mild surrounding soft tissue edema. Moderate amount of glenohumeral joint fluid is seen. Small amount of fluid is also seen in subacromial subdeltoid bursa. No gross intra-articular loose body. 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 Capsule and soft tissues: In the absence of intra-articular contrast, there is suggestion of superior anterior labral tear at 12 to 2:00 position. The glenohumeral ligaments appear intact. Tendinosis involving proximal intra-articular portion of long head biceps tendon is seen. The rotator interval appears normal, without fibrosis. The coracohumeral ligament is normal in thickness. IMPRESSION: 1. Minimally impacted left humeral neck fracture as above. No other fracture or dislocation. Moderate acromioclavicular joint and glenohumeral joint osteophytes. Small to moderate amount of joint effusion and subacromial subdeltoid bursal fluid. No gross loose body. 2. Tendinosis and moderate grade articular and bursal surface partial-thickness tear involving distal supraspinatus. Tendinosis and low-grade articular and bursal surface partial-thickness tear involving distal infraspinatus. No full-thickness rotator cuff tendon rupture. Tendinosis and low-grade intrasubstance partial thickness involving distal subscapularis. Mild supraspinatus muscle atrophy. 3. Suggestion of superior anterior labral tear at 12 and 2:00 position. Proximal long head of biceps tendinosis. Dictated by: Toribio Strange M.D. on 07/02/2019 at 9:02 Approved by: Toribio Strange M.D. on 07/02/2019 at 9:14
== END ==
PROVIDERS: PCP Family Medicine; Visit Provider Family Medicine
DX: R93.7 Abnormal findings on diagnostic imaging of other parts of musculoskeletal system (principal); S42.212A Unspecified displaced fracture of surgical neck of left humerus, initial encounter for closed fracture; M75.112 Incomplete rotator cuff tear or rupture of left shoulder, not specified as traumatic; M19.012 Primary osteoarthritis, left shoulder
CPT/HCPCS: 73221

== ENCOUNTER → 2019-07-15 10:45 | Outpatient (CLI) | payer OTHER, SELFPAY ==
[2019-07-15 11:46] LABS: INR 2.9 (0.9-1.3); Prothrombin Time 34.6 SECONDS (10.1-12.7)
== END ==
PROVIDERS: PCP Family Medicine; Visit Provider Family Medicine
DX: I82.409 Acute embolism and thrombosis of unspecified deep veins of unspecified lower extremity (principal); Z79.01 Long term (current) use of anticoagulants
CPT/HCPCS: 36415; 85610

== ENCOUNTER → 2019-07-26 15:07 | Outpatient (CLI) | payer OTHER, SELFPAY | PROVIDERS: PCP Physician Assistant; Visit Provider Physician Assistant | DX: M81.0 Age-related osteoporosis without current pathological fracture (principal); Z78.0 Asymptomatic menopausal state; Z82.62 Family history of osteoporosis | CPT/HCPCS: 77080 ==

== ENCOUNTER → 2019-09-14 17:49 | Outpatient (CLI) | payer OTHER, SELFPAY ==
[2019-09-14 18:50] LABS: INR 2.3 (0.9-1.3); Prothrombin Time 27.2 SECONDS (10.1-12.7)
== END ==
PROVIDERS: PCP Physician Assistant; Visit Provider Family Medicine
DX: I82.409 Acute embolism and thrombosis of unspecified deep veins of unspecified lower extremity (principal); Z79.899 Other long term (current) drug therapy
CPT/HCPCS: 36415; 85610

== ENCOUNTER → 2019-11-27 11:54 | Outpatient (CLI) | payer MEDICARE, OTHER, SELFPAY ==
[2019-11-27 13:41] LABS: INR 1.9 (0.9-1.3); Prothrombin Time 21.6 SECONDS (10.1-12.7)
== END ==
PROVIDERS: PCP Physician Assistant; Visit Provider Physician Assistant
DX: Z86.718 Personal history of other venous thrombosis and embolism (principal)
CPT/HCPCS: 85610

== ENCOUNTER → 2020-01-11 13:34 | Outpatient (CLI) | payer MEDICARE, OTHER, SELFPAY ==
[2020-01-11 14:05] LABS: INR 2.2 (0.9-1.3); Prothrombin Time 25.5 SECONDS (10.1-12.7)
== END ==
PROVIDERS: PCP Physician Assistant; Referring Provider Physician Assistant; Visit Provider Physician Assistant
DX: Z86.718 Personal history of other venous thrombosis and embolism (principal)
CPT/HCPCS: 36415; 85610

== ENCOUNTER → 2020-02-16 15:30 | Outpatient (CLI) | payer MEDICARE, OTHER, SELFPAY ==
[2020-02-16 16:47] LABS: INR 2.8 (0.9-1.3); Prothrombin Time 31.6 SECONDS (10.1-12.7)
== END ==
PROVIDERS: PCP Physician Assistant; Referring Provider Physician Assistant; Visit Provider Physician Assistant
DX: Z86.718 Personal history of other venous thrombosis and embolism (principal)
CPT/HCPCS: 36415; 85610

== ENCOUNTER → 2020-04-21 12:27 | Outpatient (CLI) | payer MEDICARE, OTHER, SELFPAY ==
--- NOTE | 2020-04-21 | DI.MG.S_ITS ---
BILATERAL DIGITAL SCREENING MAMMOGRAM 3D/2D WITH CAD: 04/21/2020 CLINICAL: Routine screening. Comparison is made to exams dated: 01/26/2019 mammogram, 01/09/2018 mammogram, and 11/29/2016 mammogram - [facility]. There are scattered fibroglandular elements in both breasts. Current study was also evaluated with a Computer Aided Detection (CAD) system. There are benign vascular calcifications in both breasts. No significant masses, calcifications, or other findings are seen in either breast. There has been no significant interval change. IMPRESSION: There is no mammographic evidence of malignancy. A 1 year screening mammogram is recommended. This exam was interpreted at Station ID: [id number]. NOTE: For mammograms, a report in lay terms will be sent to the patient. Approximately 15% of breast malignancies will not be visualized mammographically. In the management of a palpable breast mass, a negative mammogram must not discourage biopsy of a clinically suspicious lesion. Electronically Signed By: Naveed gonzalez/yasmin:04/21/2020 18:23:41 letter sent: Normal Exam ACR BI-RADS Category 2: Benign Finding(s) [id number]
== END ==
PROVIDERS: PCP Physician Assistant; Referring Provider Physician Assistant; Visit Provider Physician Assistant
DX: Z12.31 Encounter for screening mammogram for malignant neoplasm of breast (principal)
CPT/HCPCS: 77063; 77067

== ENCOUNTER → 2020-04-25 16:15 | Outpatient (CLI) | payer MEDICARE, OTHER, SELFPAY ==
[2020-04-25 18:10] LABS: BUN Creatinine Ratio 23.3 (6-22); Blood Urea Nitrogen 24 mg/dL (7-17); Estimated Glomerular Filt Rate 51.2 mL/min (>60)
== END ==
PROVIDERS: PCP Physician Assistant; Referring Provider Physician Assistant; Visit Provider Physician Assistant
DX: M81.0 Age-related osteoporosis without current pathological fracture (principal)
CPT/HCPCS: 36415; 82565; 84520

== ENCOUNTER → 2020-05-16 11:54 | Outpatient (CLI) | payer MEDICARE, OTHER, SELFPAY ==
[2020-05-16 12:15] VITALS: BP 133/89; PULSE 76; RESP 18; TEMP 36.9; O2SAT 98
[2020-05-16] MEDS: ZOLEDRONIC ACID 5 MG in SODIUM CHLORIDE 0.9% 100 ML 318.75 ML IV (12:16)
== END ==
PROVIDERS: PCP Physician Assistant; Referring Provider Physician Assistant; Visit Provider Physician Assistant
DX: M81.0 Age-related osteoporosis without current pathological fracture (principal)
CPT/HCPCS: 96365; J3489

== ENCOUNTER → 2020-05-25 11:21 | Outpatient (CLI) | payer MEDICARE, OTHER, SELFPAY ==
--- NOTE | 2020-05-25 | DI.RAD.S_ITS ---
PROCEDURE: XR RIBS RT MIN 3V W CXR 1V INDICATIONS: RIB PAIN TECHNIQUE: 2 views of the right ribs were acquired, along with a single view chest. COMPARISON: [facility], , CHEST 2 VIEW, 10/28/2014, 14:10. FINDINGS: Surgical changes and devices: None. Bones and chest wall: No fractures or dislocations. No suspicious bony lesions. Overlying soft tissues appear unremarkable. No pneumothorax. Blunting of the right costophrenic angle. Scattered subsegmental atelectasis and/or scarring. No focal consolidation. Mediastinum: Mediastinal contours appear normal. Heart size is normal. IMPRESSION: Small right pleural effusion. No pneumothorax No rib fracture radiographically identified. Dictated by: Estuardo Goldman M.D. on 05/25/2020 at 13:54 Approved by: Estuardo Goldman M.D. on 05/25/2020 at 13:57
== END ==
PROVIDERS: PCP Physician Assistant; Referring Provider Student in an Organized Health Care Education/Training Program; Visit Provider Student in an Organized Health Care Education/Training Program
DX: R07.81 Pleurodynia (principal); J90 Pleural effusion, not elsewhere classified
CPT/HCPCS: 71101

== ENCOUNTER 2020-06-06 17:32 | Observation (INO) | payer MEDICARE, OTHER, SELFPAY ==
[2020-06-06] VITALS (9 sets, daily range): BP systolic 126–175; BP diastolic 53–92; PULSE 79–99; RESP 18–39; TEMP 37.2–37.6; O2SAT 91–97; BMI 22.6
--- NOTE | 2020-06-06 17:51 | DI.CT.S_ITS ---
PROCEDURE: CT HEAD/BRAIN WO CON INDICATIONS: slip and fall striking head landing on back TECHNIQUE: Noncontrast 4.5 mm thick angled axial sections acquired from the foramen magnum to the vertex, with coronal and sagittal reformats. For radiation dose reduction, the following was used: automated exposure control, adjustment of mA and/or kV according to patient size. COMPARISON: [facility], MR, L-SPINE WITHOUT CONTRAST, 09/08/2013, 9:25. [facility], MR, L-SPINE WITHOUT CONTRAST, 01/10/2017, 10:04. [facility], CT, CT CERVICAL SPINE WO CON, 06/06/2020, 18:30. [facility], CT, CT CHEST ABD PEL W CON, 06/06/2020, 18:30. [facility], CR, CHEST 2 VIEW, 10/28/2014, 14:10. FINDINGS: Image quality: Excellent. CSF spaces: Basal cisterns are patent. No extra-axial fluid collections. The ventricles are symmetric in size and shape. Brain: No intracranial bleeds or masses. There is cerebral volume loss for age, with resultant ventricular and sulcal prominence. There are periventricular and deep white matter chronic small vessel ischemic changes. There is intracranial internal carotid artery atherosclerosis. Skull and face: Calvarium and visualized facial bones appear intact, without suspicious lesions. Sinuses: Visualized sinuses and mastoids are clear. IMPRESSION: No acute intracranial process is seen. Note is made of age-appropriate brain parenchymal volume loss and chronic small vessel ischemic changes. Note: Case discussed by telephone with Dr. Tang at 6:06 p.m. [place] time on June 06, 2020. Dictated by: Zach Barragan M.D. on 06/06/2020 at 18:03 Approved by: Zach Barragan M.D. on 06/06/2020 at 18:09
--- NOTE | 2020-06-06 17:51 | DI.CT.S_ITS ---
PROCEDURE: CT CERVICAL SPINE WO CON INDICATIONS: slip and fall striking head landing on back with pain TECHNIQUE: Noncontrast 3 mm thick sections acquired from the skull base to the T4 level. Sagittal and coronal reformats were then constructed. For radiation dose reduction, the following was used: automated exposure control, adjustment of mA and/or kV according to patient size. COMPARISON: [facility], CT, CT HEAD/BRAIN WO CON, 06/06/2020, 18:30. [facility], CT, CT CHEST ABD PEL W CON, 06/06/2020, 18:30. [facility], CR, XR CHEST 2V, 04/26/2019, 11:35. [facility], MR, L-SPINE WITHOUT CONTRAST, 09/08/2013, 9:25. [facility], CR, CHEST 2 VIEW, 10/28/2014, 14:10. FINDINGS: Image quality: Excellent. Bones: No acute fractures or dislocations. There is a chronic appearing anterior wedge deformity seen at the T4 level, which can be seen on the 2018 plain film of the chest. No acute features are seen. Visualized superior ribs are intact. Degenerative changes are seen, with at least moderate disc space narrowing seen at C5-C6. Milder degenerative changes are seen elsewhere. Soft tissues: Prevertebral soft tissues are normal in thickness. No paravertebral hematomas. No apical pneumothoraces. Atherosclerotic calcification is noted, including involving the aortic arch, the coronary arteries, and the carotid bifurcations. IMPRESSION: No acute fractures are seen. Focal C5-C6 degenerative change. Chronic T4 anterior wedge deformity. Note: Case discussed by telephone with Dr. Tang at 6:06 p.m. on June 06, 2020. Dictated by: Zach Barragan M.D. on 06/06/2020 at 18:09 Approved by: Zach Barragan M.D. on 06/06/2020 at 18:12
--- NOTE | 2020-06-06 17:54 | DI.CT.S_ITS ---
PROCEDURE: CT CHEST ABD PEL W CON INDICATIONS: slip and fall striking head landing on back with rib pain TECHNIQUE: After the administration of intravenous contrast, 5 mm thick sections acquired from the lung apices to the symphysis. 2.5 mm thick coronal and sagittal reformats were acquired. Additional 7 mm thick coronal maximum intensity projection (MIP) reformats acquired through the lungs. Optional 10-minute delayed imaging may be performed from the kidneys to the bladder. For radiation dose reduction, the following was used: automated exposure control, adjustment of mA and/or kV according to patient size. COMPARISON: [facility], CT, CT HEAD/BRAIN WO CON, 06/06/2020, 18:30. [facility], CT, CT CERVICAL SPINE WO CON, 06/06/2020, 18:30. [facility], CR, CHEST 2 VIEW, 10/28/2014, 14:10. [facility], MR, L-SPINE WITHOUT CONTRAST, 01/10/2017, 10:04. [facility], CR, XR CHEST 2V, 04/26/2019, 11:35. FINDINGS: Image quality: Excellent. CHEST: Lungs: No pulmonary contusions or lacerations. No acute airspace opacities. No pneumothorax or hemothorax. Central and peripheral airways appear patent and normal in caliber. Mediastinum: No mediastinal hematomas. Heart size is normal. No pericardial effusion. Thoracic aorta and pulmonary arteries demonstrate normal size and enhancement. Atherosclerotic calcification can be seen, including involving the coronary arteries. No mediastinal or hilar adenopathy. Esophagus is normal in caliber. There is a large hiatal hernia seen, which contains the majority of the patient's stomach. hiatal hernia. Chest wall: Scrutiny is given to the left ribs. No fractures can be seen at this site or elsewhere. No subcutaneous emphysema. No axillary or supraclavicular adenopathy. Thyroid gland is not well seen. ABDOMEN: Solid organs: Liver is normal in size and enhancement, without lacerations. Gallbladder demonstrates gallstones within its lumen. Biliary system is non-dilated. Pancreas enhances normally, without transection. Spleen is normal in size and enhancement, without lacerations. Generalized thickening is seen of the adrenal glands, yet without focal nodules or hematomas seen. Both kidneys enhance normally, without hydronephrosis or lacerations. Peritoneum and bowel: No free fluid or air. Unenhanced bowel loops demonstrate normal wall thickness and caliber. Nodes and vessels: No retroperitoneal or mesenteric adenopathy. Aorta and inferior vena cava are normal in size and enhancement. Miscellaneous: No ventral hernias. PELVIS: Genitourinary: Bladder wall thickness is normal. Calcified uterine fibroids are seen. Miscellaneous: No inguinal hernias or adenopathy. Bones: Pelvic ring and hip joints appear intact. 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 There is an acute appearing T9 anterior wedge deformity involving the inferior endplate, with 40% loss of height centrally. No significant posterior displacement of fracture fragments can be seen. There is a fusion device seen posteriorly at the L4-5 level. Age-appropriate bony degenerative changes are seen. 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 Incidental note is made of: Remote T4 anterior wedge deformity. Large hiatal hernia, containing the majority of the patient's stomach Gallstones Generalized thickening of the adrenal glands L4-5 posterior fusion device Atherosclerotic calcification, including involving the coronary arteries Calcified uterine fibroids Note: Case discussed by telephone with Dr. Tang at 6:06 p.m. on June 06, 2020. Dictated by: Zach Barragan M.D. on 06/06/2020 at 18:12 Approved by: Zach Barragan M.D. on 06/06/2020 at 18:17
[2020-06-06] MEDS: ONDANSETRON 4 MG/2 ML INJ IV (18:13)
[2020-06-06] MEDS: SODIUM CHLORIDE 0.9% 500 ML 1000 ML IV (18:13)
[2020-06-06] MEDS: MORPHINE 4 MG/ML INJ 2 MG IV (18:14)
[2020-06-06 18:23] LABS: INR 2.1 (0.9-1.3); Prothrombin Time 23.9 SECONDS (10.1-12.7)
[2020-06-06 18:26] LABS: Alanine Aminotransferase 38 IU/L (<35); Albumin 4.2 g/dL (3.5-5.0); Albumin Globulin Ratio 1.2 (1.0-2.8); Alkaline Phosphatase 103 U/L (38-126); Aspartate Aminotransferase 63 IU/L (14-36); BUN Creatinine Ratio 29.2 (6-22); Bilirubin Total 1.1 mg/dL (0.2-1.3); Blood Urea Nitrogen 21 mg/dL (7-17); Carbon Dioxide 28 mmol/L (22-32); Chloride 101 mmol/L (98-107); Estimated Glomerular Filt Rate > 60.0 mL/min (>60); Globulin 3.4 g/dL (1.7-4.1); Glucose 143 mg/dL (80-110); Lipase 30 U/L (23-300); Potassium 4.4 mmol/L (3.4-5.1); Sodium 135 mmol/L (137-145); Total Protein 7.6 g/dL (6.3-8.2)
[2020-06-06 18:27] LABS: HEMOLYSIS 77 (0-50)
[2020-06-06 18:34] LABS: Add Manual Diff / Slide Review NO; Basophils Absolute Auto 100 /uL (0-100); Basophils Percent Auto 0.4 % (0-2); Eosinophils Absolute Auto 0 /uL (0-450); Hematocrit 37.7 % (36-46); Hemoglobin 12.7 g/dL (12.0-16.0); Lymphocytes Absolute Auto 400 /uL (1100-4500); Lymphocytes Percent Auto 3.1 % (25-40); Mean Corpuscular HGB Conc 33.6 % (30-36); Mean Corpuscular Hemoglobin 30.9 PG (26-34); Mean Corpuscular Volume 92.2 fL (80-100); Monocytes Absolute Auto 800 /uL (0-900); Monocytes Percent Auto 6.4 % (3-14); Neutrophils Absolute Auto 11700 /uL (1500-7000); Neutrophils Percent Auto 90.1 % (50-75); Platelet Count 252 X10^3/uL (150-400); Red Blood Cell Count 4.09 X10^6/uL (4.0-5.2); Red Cell Distribution Width 14.6 % (11.6-14.8)
[2020-06-06 18:36] LABS: Creatine Kinase 146 U/L (30-135)
[2020-06-06 19:04] LABS: Procalcitonin 6.93 ng/mL (<0.5)
--- NOTE | 2020-06-06 19:14 | ED.FALL ---
HPI - Fall General Chief Complaint: Trauma Stated Complaint: Fall Time Seen by Provider: 06/06/20 17:51 Source: patient and EMS Mode of arrival: EMS Limitations: no limitations History of Present Illness HPI Narrative: This is a 85 year female, nonsmoker, who presents to ED with [facility] with chief complain of pain in her bilateral ribs and back after she sustained a fall yesterday. Patient is currently on warfarin for DVT and also has history of osteoporosis. Patient report she had urinary incontinence and was rushing to the bathroom and accidentally fell on her back and hit her head on the edge of her wooden bed. Patient denies losing consciousness, vision change, severe headache or tingling or numbness to extremities but she was unable to get herself up and had to call a family member help assist her to bed. Patient called EMS today since her pain was getting worse. Patient reports pain worse with breathing and moving. Patient is usually not a O2 dependent but she is requiring O2 by nasal cannula on 2 L to keep O2 sat >95%. Patient had previous rib fractures before and this time pain is worse. Patient also reports this is only 2nd time she had urinary incontinence. She had frequent UTIs in the past and last 1 was about a year ago but she does not have other urinary symptoms such as dysuria, frequency. Patient reports she had only 1 piece of crackers and peppermint which she had vomited from severe pain. She voided plastic bag since she could not get out of bed. Patient lives alone and her primary care provider is LALO Garcia. Related Data Home Medications Medication Instructions Recorded Confirmed VITAMIN D (Vitamin D3) 1,000 unit PO QDAY #0 11/12/12 06/30/19 omeprazole 20 mg capsule,delayed 20 mg PO DAILY 06/07/19 06/30/19 release Previous Rx's Medication Instructions Recorded Disabled Parking Permit ea #1 06/12/17 warfarin 5 mg tablet 5 mg PO QDAY #90 tab 07/23/18 prothrombin time test strips #6 each 09/01/18 prothrombin time/INR test metr #1 each 11/16/18 fluoxetine 20 mg capsule 20 mg PO BID #180 cap 01/21/19 bupropion HCl 100 mg tablet,12 hr 100 mg PO Q12H #60 tab 04/28/20 sustained-release levothyroxine 112 mcg tablet See Rx Instructions .ROUTE 06/05/20 .COMPLEX #30 tab Allergies Allergy/AdvReac Type Severity Reaction Status Date / Time adhesive [ADHESIVE] Allergy Mild ITCHY Verified 06/30/19 14:18 ibuprofen [IBUPROFEN] Allergy Mild PALPITATION Verified 06/30/19 14:18 S Penicillins [PENICILLINS] Allergy Mild LOCAL Verified 06/30/19 14:18 REACTION FROM INJ/RED AT SITE shellfish derived Allergy Mild ITCHY/VOMIT Verified 06/30/19 14:18 [SHELLFISH DERIVED] ING Review of Systems Review of Systems Narrative: General: Denies fever, chills, fatigue, malaise, sweats. HEENT: Denies sinus pain, ear pain, sore throat, difficulty swallowing, dizziness. Respiratory: See HPI Cardiovascular: Denies chest pain, palpitations, orthopnea, edema. Gastrointestinal: Denies nausea, vomiting, abdominal pain, diarrhea, constipation, melena. : See HPI Musculoskeletal: See HPI Skin: Denies rash, skin lesions, or other. Neurologic: Denies weakness, headache, numbness, change in speech, confusion, seizures, incoordination. Psychiatric: No concerning psychosocial issues. 12-point review of systems is negative except for those stated above. 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 Head: Normal cephalic, atraumatic. No scalp or temporal tenderness, palpable mass or rash. EYES: Pupils are equal, round, and reactive to light and accommodation. Extraocular muscles are intact bilaterally. There is no subconjunctival hemorrhage, exudate and sclera non-icteric. ENT: Bilateral auditory canals without drainage. Hearing grossly intact. Nose without bleeding, purulent discharge or deviation. Facial sinuses nontender to palpate. Mucous membrane severely dry, no mucosal lesion. Throat without erythema, tonsillar hypertrophy or exudate. Uvula in midline, airway patent. Neck: Trachea in midline. No JVD, non-tender without lymphadenopathy. No masses or thyroid megaly. Supple, non-tender and no meningeal signs. CARDIAC: Normal regular rate and rhythm without murmurs, gallops, or rubs. No chest wall tenderness. No peripheral edema, cyanosis or pallor. Capillary refill is less than 2 seconds. RESPIRATORY: Shallow tachypnea with 02 sat 98% in NC on 2 liter. Lungs are clear on upper lobes and mild crackles on lower lobes. No cough, wheezes, rales, or rhonchi. No stridor, increase work of breathing, or accessary muscle used. ABD: Abdomen soft, nontender and non-distended. No guarding or rebound tenderness to palpate. Bowel sounds are normal in all 4 quadrants. There is no palpable masses or organomegaly. EXT: Full painless ROM of all extremities with no loss of sensation, strength, effusion or edema. SKIN: Hot to touch, dry, slighly pale color for patient. No erythema, lesions or rash over visible areas. BACK: Exquisite tenderness to palpate in right mid/low back pain. No rash, mass, warmth, redness. NEUROLOGICAL: Alert and oriented to place, time and person. Sensation and motor function intact bilaterally. No facial droops, dysphasia. PSYCHIATRIC: Good judgement and reason, without hallucinations, abnormal affect or abnormal behaviors during the examination. Initial Vital Signs Initial Vital Signs: Vital Signs Temperature 99.7 F H 06/06/20 17:41 Pulse Rate 82 06/06/20 17:41 Respiratory Rate 22 06/06/20 17:41 Blood Pressure 175/83 H 06/06/20 17:41 Pulse Oximetry 91 06/06/20 17:41 Scores GCS [place] coma scale eye opening: Spontaneous [place] coma scale verbal response: Orientated [place] coma scale motor response: Obey commands [place] coma scale total score: 15 qSOFA Altered Mental Status (GCS <15): No Respiratory rate greater than/equal to 22: Yes Systolic blood pressure less than or equal to 100: No qSOFA Total: 1 0-1 Not High Risk 1-3 High risk Course Orders Ordered: ED Orders 06/06/20 17:30 Complete Blood Count AUTO DIFF Stat Comprehensive Metabolic Panel Stat Creatine Kinase Stat Lipase Stat Procalcitonin Stat Prothrombin Time INR Stat 06/06/20 17:51 CT cervical spine wo con Stat CT head/brain wo con Stat 06/06/20 17:54 CT chest abd pel w con Stat 06/06/20 18:06 EKG-12 Lead Stat 06/06/20 19:33 Urinalysis and Microscopic Stat 06/06/20 20:52 Consult to Discharge Planning Routine Consult to Occupational Therapy Evaluate & Treat 06/07/20 05:00 Basic Metabolic Panel Routine Complete Blood Count AUTO DIFF Routine Magnesium Routine Prothrombin Time INR Routine Acetaminophen (Tylenol) 975 mg PO Q8H ZEINAB Al Hydrox/Mg Hydrox/Simethicone (Maalox Plus) 30 ml PO Q6HR PRN PRN Reason: Dyspepsia Bisacodyl (Dulcolax) 10 mg PO DAILY PRN PRN Reason: Constipation Calcium Carbonate (Tums) 1,000 mg PO DAILY ZEINAB Docusate Sodium (Colace) 100 mg PO BID PRN PRN Reason: Constipation Sodium Chloride (Normal Saline 0.9%) 1,000 mls @ 125 mls/hr IV CONT ZEINAB Last Infusion: 06/06/20 20:48 Dose: 0 mls/hr Documented by: Admin: 06/06/20 19:21 Dose: 125 mls/hr Documented by: YVES Levothyroxine Sodium (Synthroid) 112 mcg PO 0600 [facility] Morphine Sulfate (Morphine) 2 mg IV Q15MIN ZEINAB Stop: 06/10/20 18:16 Last Admin: 06/06/20 19:22 Dose: 2 mg Documented by: YVES Naloxone HCl (Narcan) 0.2 mg IV Q2MIN PRN PRN Reason: Opiate Reversal Non-Formulary Medication (Vitamin D (Vitamin D3)) 1,000 unit PO QDAY [facility] Ondansetron HCl (Zofran) 4 mg IV Q6HR PRN PRN Reason: Nausea And Vomiting Oxycodone HCl (Percolone) 5 mg PO Q6HR PRN PRN Reason: Pain, Moderate (4-6) Pantoprazole Sodium (Protonix) 20 mg PO 0600 ZEINAB Warfarin Sodium (Coumadin) 5 mg PO QDAY ZEINAB Discontinued Medications Sodium Chloride (Normal Saline 0.9%) 500 mls @ 1,000 mls/hr IV BOLUS ONE Stop: 06/06/20 18:34 Last Infusion: 06/06/20 19:25 Dose: 0 mls/hr Documented by: Admin: 06/06/20 18:13 Dose: 1,000 mls/hr Documented by: SALVADOR Morphine Sulfate (Morphine) 2 mg IV NOW ONE Stop: 06/06/20 17:58 Last Admin: 06/06/20 18:14 Dose: 2 mg Documented by: SALVADOR Ondansetron HCl (Zofran) 4 mg IV NOW ONE Stop: 06/06/20 17:58 Last Admin: 06/06/20 18:13 Dose: 4 mg Documented by: SALVADOR Reevaluation(s) Reevaluation #1: Reports pain improved with morphine IV medications Time: 19:51 Reevaluation #2: attempted to titrate down o2 to RA. Sat drops to 90% in RA. Time: 20:15 Consultations Consultation #1: Dr. Duenas consulted for T9 fracture and informed this is stable and is not requiring braces or surgical interventions and could be dc to home if the patient can tolerate the pain or ambulatory. Time: 19:53 Consultation #2: Hospitalist DISINTEGRATOR OPERATOR David consulted for admission for T9 wedge deformity involving inferior endplate with 40% height. She is unable to ambulate. Hypoxia to 88% in RA and elevated Procal without obvious pneumonia. Time: 20:17 Vital Signs Vital signs: Vital Signs - 8 hr 06/06/20 17:41 06/06/20 17:57 06/06/20 18:00 Temperature 99.7 F H Pulse Rate 82 83 82 Respiratory Rate 22 Blood Pressure 175/83 H 158/92 H Pulse Oximetry 91 95 96 06/06/20 18:30 06/06/20 19:00 06/06/20 19:41 Temperature Pulse Rate 79 87 85 Respiratory Rate 19 28 H 39 H Blood Pressure 147/80 H 151/87 H Pulse Oximetry 97 93 96 MDM - Fall Differential Diagnosis Differential diagnosis: Likely compression fracture and other (hypoxia, pneumonia, UTI, dehydration) Medical Records Attestation: I reviewed the patient's medical records. Lab Data Attestation: I reviewed the patient's lab results. Result diagrams: 06/06/20 17:30 06/06/20 17:30 Labs: Lab Results 06/06/20 06/06/20 06/06/20 Range/Units 17:30 17:30 17:30 WBC 13.0 H (4.5-11.0) X10^3/uL RBC 4.09 (4.0-5.2) X10^6/uL Hgb 12.7 (12.0-16.0) g/dL Hct 37.7 (36-46) % MCV 92.2 (80-100) fL MCH 30.9 (26-34) PG MCHC 33.6 (30-36) % RDW 14.6 (11.6-14.8) % Plt Count 252 (150-400) X10^3/uL Neut % (Auto) 90.1 H (50-75) % Lymph % (Auto) 3.1 L (25-40) % [place] % (Auto) 6.4 (3-14) % Eos % (Auto) 0.0 L (2-4) % Baso % (Auto) 0.4 (0-2) % Neut # (Auto) 20260 H (2166-7021) /uL Lymph # (Auto) 400 L (6378-7374) /uL [place] # (Auto) 800 (0-900) /uL Eos # (Auto) 0 (0-450) /uL Baso # (Auto) 100 (0-100) /uL PT 23.9 H (10.1-12.7) SECONDS INR 2.1 H (0.9-1.3) Sodium 135 L (137-145) mmol/L Potassium 4.4 (3.4-5.1) mmol/L Chloride 101 (98-107) mmol/L Carbon Dioxide 28 (22-32) mmol/L BUN 21 H (7-17) mg/dL Creatinine 0.72 (0.52-1.04) mg/dL Estimated GFR > 60.0 (>60) mL/min BUN/Creatinine Ratio 29.2 H (6-22) Glucose 143 H (80-110) mg/dL Calcium 9.0 (8.4-10.2) mg/dL Total Bilirubin 1.1 (0.2-1.3) mg/dL AST 63 H (14-36) IU/L ALT 38 H (<35) IU/L Alkaline Phosphatase 103 (38-126) U/L Total Creatine Kinase (30-135) U/L Total Protein 7.6 (6.3-8.2) g/dL Albumin 4.2 (3.5-5.0) g/dL Globulin 3.4 (1.7-4.1) g/dL Albumin/Globulin Ratio 1.2 (1.0-2.8) Lipase 30 (23-300) U/L Procalcitonin (<0.5) ng/mL Urine Color Urine Appearance Urine pH (4.5-8.0) Ur Specific [place] (1.000-1.035) Urine Protein (Negative) Urine Glucose (UA) (Negative) g/dL Urine Ketones (NEGATIVE) Urine Occult Blood (Negative) Urine Nitrate (Negative) Urine Bilirubin (NEGATIVE) Urine Urobilinogen (0.2) E.U./dL Ur Leukocyte Esterase (NEGATIVE) Urine RBC (0-5/HPF) Urine WBC (0-5/HPF) Ur Squamous Epith Cells (0-5/HPF) Amorphous Sediment Urine Bacteria (None) Ur Culture Indicated? 06/06/20 06/06/20 06/06/20 Range/Units 17:30 17:30 19:33 WBC (4.5-11.0) X10^3/uL RBC (4.0-5.2) X10^6/uL Hgb (12.0-16.0) g/dL Hct (36-46) % MCV (80-100) fL MCH (26-34) PG MCHC (30-36) % RDW (11.6-14.8) % Plt Count (150-400) X10^3/uL Neut % (Auto) (50-75) % Lymph % (Auto) (25-40) % [place] % (Auto) (3-14) % Eos % (Auto) (2-4) % Baso % (Auto) (0-2) % Neut # (Auto) (5487-9188) /uL Lymph # (Auto) (3101-6959) /uL [place] # (Auto) (0-900) /uL Eos # (Auto) (0-450) /uL Baso # (Auto) (0-100) /uL PT (10.1-12.7) SECONDS INR (0.9-1.3) Sodium (137-145) mmol/L Potassium (3.4-5.1) mmol/L Chloride (98-107) mmol/L Carbon Dioxide (22-32) mmol/L BUN (7-17) mg/dL Creatinine (0.52-1.04) mg/dL Estimated GFR (>60) mL/min BUN/Creatinine Ratio (6-22) Glucose (80-110) mg/dL Calcium (8.4-10.2) mg/dL Total Bilirubin (0.2-1.3) mg/dL AST (14-36) IU/L ALT (<35) IU/L Alkaline Phosphatase (38-126) U/L Total Creatine Kinase 146 H (30-135) U/L Total Protein (6.3-8.2) g/dL Albumin (3.5-5.0) g/dL Globulin (1.7-4.1) g/dL Albumin/Globulin Ratio (1.0-2.8) Lipase (23-300) U/L Procalcitonin 6.93 H (<0.5) ng/mL Urine Color Yellow Urine Appearance Clear Urine pH 7.5 (4.5-8.0) Ur Specific [place] 1.010 (1.000-1.035) Urine Protein 1+ H (Negative) Urine Glucose (UA) Negative (Negative) g/dL Urine Ketones Negative (NEGATIVE) Urine Occult Blood Trace-lysed (Negative) Urine Nitrate Negative (Negative) Urine Bilirubin Negative (NEGATIVE) Urine Urobilinogen 1.0 (0.2) E.U./dL Ur Leukocyte Esterase Negative (NEGATIVE) Urine RBC 1-5/hpf (0-5/HPF) Urine WBC 1-5/hpf (0-5/HPF) Ur Squamous Epith Cells 0-1 /hpf (0-5/HPF) Amorphous Sediment 1+ Urine Bacteria Few (2-10) H (None) Ur Culture Indicated? Cult not indicated Imaging Data CT scan - abdomen/pelvis: Radiologist's Impression: [address] [address] [address] Scan Report Signed Patient: Sue Gonzales [facility]#: [id number] : 1935Acct:[id number] Age/Sex: 85 / FDate of Service: 06/06/20 Loc: ED Accession Number: [id number] Procedure: CT chest abd pel w con Ordering Provider: Leonides Tang MD PROCEDURE: CT CHEST ABD PEL W CON INDICATIONS: slip and fall striking head landing on back with rib pain TECHNIQUE: After the administration of intravenous contrast, 5 mm thick sections acquired from the lung apices to the symphysis. 2.5 mm thick coronal and sagittal reformats were acquired. Additional 7 mm thick coronal maximum intensity projection (MIP) reformats acquired through the lungs. Optional 10-minute delayed imaging may be performed from the kidneys to the bladder. For radiation dose reduction, the following was used: automated exposure control, adjustment of mA and/or kV according to patient size. COMPARISON: [facility], CT, CT HEAD/BRAIN WO CON, 06/06/2020, 18:30. [facility], CT, CT CERVICAL SPINE WO CON, 06/06/2020, 18:30. [facility], CR, CHEST 2 VIEW, 10/28/2014, 14:10. [facility], MR, L-SPINE WITHOUT CONTRAST, 01/10/2017, 10:04. [facility], CR, XR CHEST 2V, 04/26/2019, 11:35. FINDINGS: Image quality: Excellent. CHEST: Lungs: No pulmonary contusions or lacerations. No acute airspace opacities. No pneumothorax or hemothorax. Central and peripheral airways appear patent and normal in caliber. Mediastinum: No mediastinal hematomas. Heart size is normal. No pericardial effusion. Thoracic aorta and pulmonary arteries demonstrate normal size and enhancement. Atherosclerotic calcification can be seen, including involving the coronary arteries. No mediastinal or hilar adenopathy. Esophagus is normal in caliber. There is a large hiatal hernia seen, which contains the majority of the patient's stomach. hiatal hernia. Chest wall: Scrutiny is given to the left ribs. No fractures can be seen at this site or elsewhere. No subcutaneous emphysema. No axillary or supraclavicular adenopathy. Thyroid gland is not well seen. ABDOMEN: Solid organs: Liver is normal in size and enhancement, without lacerations. Gallbladder demonstrates gallstones within its lumen. Biliary system is non-dilated. Pancreas enhances normally, without transection. Spleen is normal in size and enhancement, without lacerations. Generalized thickening is seen of the adrenal glands, yet without focal nodules or hematomas seen. Both kidneys enhance normally, without hydronephrosis or lacerations. Peritoneum and bowel: No free fluid or air. Unenhanced bowel loops demonstrate normal wall thickness and caliber. Nodes and vessels: No retroperitoneal or mesenteric adenopathy. Aorta and inferior vena cava are normal in size and enhancement. Miscellaneous: No ventral hernias. PELVIS: Genitourinary: Bladder wall thickness is normal. Calcified uterine fibroids are seen. Miscellaneous: No inguinal hernias or adenopathy. Bones: Pelvic ring and hip joints appear intact. 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 There is an acute appearing T9 anterior wedge deformity involving the inferior endplate, with 40% loss of height centrally. No significant posterior displacement of fracture fragments can be seen. There is a fusion device seen posteriorly at the L4-5 level. Age-appropriate bony degenerative changes are seen. 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 Incidental note is made of: Remote T4 anterior wedge deformity. Large hiatal hernia, containing the majority of the patient's stomach Gallstones Generalized thickening of the adrenal glands L4-5 posterior fusion device Atherosclerotic calcification, including involving the coronary arteries Calcified uterine fibroids Note: Case discussed by telephone with Dr. Tang at 6:06 p.m. on June 06, 2020. Dictated by: Zach Barragan M.D. on 06/06/2020 at 18:12 Approved by: Zach Barragan M.D. on 06/06/2020 at 18:17 CT scan - head: Radiologist's Impression: [place] [address] CT Scan Report Signed Patient: Sue Gonzales [facility]#: [id number] : 1935Acct:[id number] Age/Sex: 85 / FDate of Service: 06/06/20 Loc: ED Accession Number: [id number] Procedure: CT head/brain wo con Ordering Provider: Leonides Tang MD PROCEDURE: CT HEAD/BRAIN WO CON INDICATIONS: slip and fall striking head landing on back TECHNIQUE: Noncontrast 4.5 mm thick angled axial sections acquired from the foramen magnum to the vertex, with coronal and sagittal reformats. For radiation dose reduction, the following was used: automated exposure control, adjustment of mA and/or kV according to patient size. COMPARISON: [facility], MR, L-SPINE WITHOUT CONTRAST, 09/08/2013, 9:25. [facility], MR, L-SPINE WITHOUT CONTRAST, 01/10/2017, 10:04. [facility], CT, CT CERVICAL SPINE WO CON, 06/06/2020, 18:30. [facility], CT, CT CHEST ABD PEL W CON, 06/06/2020, 18:30. [facility], CR, CHEST 2 VIEW, 10/28/2014, 14:10. FINDINGS: Image quality: Excellent. CSF spaces: Basal cisterns are patent. No extra-axial fluid collections. The ventricles are symmetric in size and shape. Brain: No intracranial bleeds or masses. There is cerebral volume loss for age, with resultant ventricular and sulcal prominence. There are periventricular and deep white matter chronic small vessel ischemic changes. There is intracranial internal carotid artery atherosclerosis. Skull and face: Calvarium and visualized facial bones appear intact, without suspicious lesions. Sinuses: Visualized sinuses and mastoids are clear. IMPRESSION: No acute intracranial process is seen. Note is made of age-appropriate brain parenchymal volume loss and chronic small vessel ischemic changes. Note: Case discussed by telephone with Dr. Tang at 6:06 p.m. [place] time on June 06, 2020. Dictated by: Zach Barragan M.D. on 06/06/2020 at 18:03 Approved by: Zach Barragan M.D. on 06/06/2020 at 18:09 CT-C spine: Radiologist's Impression: [place] [address] CT Scan Report Signed Patient: Sue Gonzales [facility]#: [id number] : 1935Acct:[id number] Age/Sex: 85 / FDate of Service: 06/06/20 Loc: ED Accession Number: [id number] Procedure: CT cervical spine wo con Ordering Provider: Leonides Tang MD PROCEDURE: CT CERVICAL SPINE WO CON INDICATIONS: slip and fall striking head landing on back with pain TECHNIQUE: Noncontrast 3 mm thick sections acquired from the skull base to the T4 level. Sagittal and coronal reformats were then constructed. For radiation dose reduction, the following was used: automated exposure control, adjustment of mA and/or kV according to patient size. COMPARISON: [facility], CT, CT HEAD/BRAIN WO CON, 06/06/2020, 18:30. [facility], CT, CT CHEST ABD PEL W CON, 06/06/2020, 18:30. [facility], CR, XR CHEST 2V, 04/26/2019, 11:35. [facility], MR, L-SPINE WITHOUT CONTRAST, 09/08/2013, 9:25. [facility], CR, CHEST 2 VIEW, 10/28/2014, 14:10. FINDINGS: Image quality: Excellent. Bones: No acute fractures or dislocations. There is a chronic appearing anterior wedge deformity seen at the T4 level, which can be seen on the 2019 plain film of the chest. No acute features are seen. Visualized superior ribs are intact. Degenerative changes are seen, with at least moderate disc space narrowing seen at C5-C6. Milder degenerative changes are seen elsewhere. Soft tissues: Prevertebral soft tissues are normal in thickness. No paravertebral hematomas. No apical pneumothoraces. Atherosclerotic calcification is noted, including involving the aortic arch, the coronary arteries, and the carotid bifurcations. IMPRESSION: No acute fractures are seen. Focal C5-C6 degenerative change. Chronic T4 anterior wedge deformity. Note: Case discussed by telephone with Dr. Tang at 6:06 p.m. on June 06, 2020. Dictated by: Zach Barragan M.D. on 06/06/2020 at 18:09 Approved by: Zach Barragan M.D. on 06/06/2020 at 18:12 ECG Data Attestation: I personally reviewed and interpreted this ECG as follows: Prior ECG tracings: available for review Interpretation: Normal sinus rhythm with sinus arrhythmia rate at 87. Left axis deviation. ST depression in leads II, III, V5 No specific ST and T wave abnormality MDM Narrative Medical decision making narrative: MOdified Trauma called since the patient is on anticoagulant and had a fall and hitting her head. This is a 85 year old female who has history of osteoporosis and rib fractures had mechanical fall yesterday brushing to the bathroom after she had urinary incontinence and landed on her back and her head to edge of with. No loss of consciousness, headache, vision change but reports severe right-sided mid to low back pain. She is not O2 dependent at home but is hypoxic in ED without NC O2. Temperature on arrival is 99.7 and RR in 24-26/min. qSOFA score is 1 (high risk). Concerns for pneumonia or UTI. She received analgesic enroute to ED by EMS. Very fine crackles to lower lobes with shallow tachypnea. Patient denies having chest pain, dizziness, breathing difficulty preceded to fall. Head and C spine CT were negative for acute finding. CT chest/abd/pelvis showed acute appearing T7 anterior wedge deformity with 40% loss of height centrally. No pulmonary contusion no acute airspace opacities. Old T4 anterior wedge deformity was appreciated. Incidental findings Gallstones and large hiatal hernia. EKG is sinus rhythm with sinus arrhythmia rate at [address] changes. INR is 2.1 with PT of 23.9. Leukocytosis of WBC 13.1 with Neutrophils 90.1%. Procalcitonin level is elevated to 6.93. Mild hyponatremia of 135 with elevated BUN (21) and BUN/Cr ratio of 29.2 and physical exam appreciated extremely dry oral mucous membrane. Patient was hydrated with 500ml normal saline infusion and has been infusing NS 125ml/hr. Patient was medicated several doses of 2 mg morphine for pain management. I/S teaching has been done by RT to prevent pneumonia/atelectasis. Prerna UA without indications for infection. Negative urine leukocytes esterase and nitrate but few urine bacteria (few) and WBC 1-5 hpf. Covid test is negative. Hospital list DISINTEGRATOR OPERATOR David kindly accepted patient's care for pain management, further evaluation for elevated procalcitonin and white count, possible physical therapy and case work aide consultation and evaluation. Patient lives alone. Discharge Plan Departure Patient Disposition: Admitted as Observation Clinical Impression: History of osteoporosis Thoracic spine fracture Qualifiers: Encounter type: initial encounter Thoracic vertebra fracture level: T9 Fracture type: closed Fracture morphology: wedge compression Qualified Code(s): S22.070A - Wedge compression fracture of T9-T10 vertebra, initial encounter for closed fracture Discharge Date/Time: 06/06/20 20:55 Referrals: Liliana Malone PA-C [Primary Care Provider] - Admit Date/Time: 06/06/20 20:36 Admit Provider: Polo Sargent
[2020-06-06] MEDS: SODIUM CHLORIDE 0.9% 1,000 ML 125 ML IV (19:21)
[2020-06-06] MEDS: MORPHINE 2 MG/ML INJ IV (19:22)
[2020-06-06 19:56] LABS: Appearance Urine UA CLEAR; Bilirubin Urine UA NEGATIVE (NEGATIVE); Color Urine UA YELLOW; Glucose Urine UA NEGATIVE (Negative); Ketones Urine UA NEGATIVE (NEGATIVE); Leukocyte Esterase Urine UA NEGATIVE (NEGATIVE); Nitrite Urine UA NEGATIVE (Negative); Occult Blood Urine UA TRACE-LYSED (Negative); Protein Urine UA 1+ (Negative)
[2020-06-06 19:59] LABS: pH Urine UA 7.5 (4.5-8.0)
[2020-06-06 20:04] LABS: Bacteria Urine Few (2-10); RBC Urine 1-5/HPF (0-5/HPF); Squamous Epithelial Cell Urine 0-1 /HPF (0-5/HPF); WBC Urine 1-5/HPF (0-5/HPF)
[2020-06-06 20:05] LABS: Culture Indicated Urine Cult Not Indicated
[2020-06-06 20:06] LABS: Amorphous Sediment Urine 1+
[2020-06-06 20:57] LABS: COVID19 -Nasal RAPID Negative (Negative)
--- NOTE | 2020-06-06 21:12 | P.HP_ITS ---
History of Present Illness History of Present Illness Date Patient Seen: 06/06/20 Time Patient Seen: 21:11 Chief complaint: Fall Narrative: Ms. 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 The patient states she was rushing to the bathroom due to urinary incontinence when she lost her balance falling backward onto the floor sustaining a glancing blow to her head hitting the bed frame. The patient states she has had lengthy history of disequilibrium relying on visual cuing for balance and uses walking sticks for support. The patient states she still had a large episode urinary incontinence which is not typical for her. She denies frequency burning or hematuria. She states she has had prior UTIs and felt none of the symptoms. He does have a history of lumbar fusion at L4-5 but no prior history of incontinence of bowel or bladder and prior back pain with radiculopathy has all but resolved. The patient sustained a fall yesterday however summoned see EMS today due to worsening chest wall and back pain. She denies recent illness with no fevers or chills or known COVID-19 exposures. She denies headaches or dizziness but endorses disequilibrium as noted above. She has no nasal congestion or sore throat. She states she has arthritis in her neck that is unchanged. She complaints of chest pain on deep inspiration in her ribs and her back but denies shortness of breath, cough or wheezing. She reports a remote history of prior rib fractures on the right. She denies epigastric or abdominal pain, no nausea vomiting, diarrhea or constipation. As noted she has had an episode of gross incontinence of urine with a history stress incontinence. She denies leg weakness but relates to prior severe neurologic claudication resolved following her lumbar fusion and now reports slight blunting of sensation bilateral lower extremities. Upon arrival to the ER the patient has temperature 99.7?, heart rate of 82, blood pressure 175/83, respirations of 22 saturating 91% on 2 L nasal cannula. In the ER the patient's activated as a modified trauma related to history of anticoagulation on warfarin. CT of the head is obtained finding no acute intracranial pathology, age-appropriate volume loss and chronic small-vessel ischemic changes. CT of the spine finds C5-6 degenerative changes and remote T4 anterior wedge deformity. CT of the abdomen pelvis finds an acute T9 anterior wedging compression fracture with 40% loss of height, fusion device at L4-5. Twelve lead EKG obtained finds sinus rhythm without ectopy or block without evidence of ischemia or infarct. On laboratory analysis the patient has white count of 13.0 with 90.1% neutrophils, hemoglobin of 12.7 and hematocrit of 37.7 with platelets of 252. PT is 23.9 and INR is 2.1. Electrolytes are within normal range and has a BUN of 21 and creatinine 0.72 with a BUN creatinine ratio of 29.2. Nonfasting glucose is 143. Liver functions reveal total bilirubin of 1.1, AST of 63, ALT of 38 and alkaline phosphatase of 11/03/2002. Total CK is measured at 146, procalcitonin is 6.93. Urinalysis finds specific gravity of 1.010, 1+ protein, trace blood, negative leukocyte esterase or nitrites. Dr. Duenas orthopedics is contacted through the emergency department to consult regarding the T9 compression fracture. In the ER the patient received morphine sulfate 2 mg x 2, Zofran 1 L normal saline and normal saline 125 cc/hour. C overage screening is pending. The patient is admitted to the medicine service for ground level fall with thoracic spinal compression fracture. 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) Osteoporosis (Chronic 05/16/16) Surgical History (Updated 06/06/20 @ 22:07 by NANNETTE Villasenor) History of lumbar fusion (Acute) Family & Social History Family History (Updated 06/06/20 @ 22:09 by NANNETTE Villasenor) Father Emphysema lung Smoker Mother Cardiovascular disease Myocardial infarction Brother Alcohol abuse GI hemorrhage Tobacco & Substance use: Smoking Status Never smoker alcohol intake current Meds Home Medications and Allergies Home Medications Medication Instructions Recorded Confirmed Type VITAMIN D (Vitamin D3) 1,000 unit PO QDAY #0 11/12/12 06/06/20 History Disabled Parking Permit ea #1 06/12/17 06/30/19 Rx warfarin 5 mg tablet 5 mg PO QDAY #90 tab 07/23/18 06/06/20 Rx prothrombin time test strips #6 each 09/01/18 06/30/19 Rx prothrombin time/INR test metr #1 each 11/16/18 06/30/19 Rx fluoxetine 20 mg capsule 20 mg PO BID #180 cap 01/21/19 06/06/20 Rx omeprazole 20 mg capsule,delayed 20 mg PO DAILY 06/07/19 06/06/20 History release bupropion HCl 100 mg tablet,12 hr 100 mg PO Q12H #60 tab 04/28/20 06/06/20 Rx sustained-release levothyroxine 112 mcg tablet See Rx Instructions .ROUTE 06/05/20 06/06/20 Rx .COMPLEX #30 tab Allergies Allergy/AdvReac Type Severity Reaction Status Date / Time adhesive [ADHESIVE] Allergy Mild ITCHY Verified 06/30/19 14:18 ibuprofen [IBUPROFEN] Allergy Mild PALPITATION Verified 06/30/19 14:18 S Penicillins [PENICILLINS] Allergy Mild LOCAL Verified 06/30/19 14:18 REACTION FROM INJ/RED AT SITE shellfish derived Allergy Mild ITCHY/VOMIT Verified 06/30/19 14:18 [SHELLFISH DERIVED] ING Review of Systems Review of Systems ROS: Yes All systems reviewed with the patient and are negative except as otherwise documented Exam Vital Signs (past 8 hours): - 06/06/20 17:41 06/06/20 17:57 06/06/20 18:00 Temperature 99.7 F H Pulse Rate 82 83 82 Respiratory Rate 22 Blood Pressure 175/83 H 158/92 H Pulse Oximetry 91 95 96 06/06/20 18:30 06/06/20 19:00 06/06/20 19:41 Temperature Pulse Rate 79 87 85 Respiratory Rate 19 28 H 39 H Blood Pressure 147/80 H 151/87 H Pulse Oximetry 97 93 96 06/06/20 20:53 Temperature Pulse Rate 84 Respiratory Rate 20 Blood Pressure 165/74 H Pulse Oximetry 95 Oxygen Delivery Method Nasal Cannula Oxygen Flow Rate 2 Narrative Exam Narrative: GENERAL APPEARANCE: well developed, adequately nourished, uncomfortable appearing with back spasms. HEENT: Atraumatic, PERRLA, conjunctiva clear, EOMs intact without nystagmus, no sinus tenderness to percussion, no rhinorrhea, mucous membranes are moist and pink without lesions or exudate. NECK/THYROID: Preserved range of motion, nontender to palpation, no step-offs, no JVD, no thyromegaly, trachea midline. LYMPH NODES: no cervical or supraclavicular lymphadenopathy. SKIN: [place], warm and dry, ecchymosis bilateral forearms HEART: regular rate and rhythm, S1-S2, no murmur, no rubs or gallops, brisk capillary refill, no edema LUNGS: clear to auscultation bilaterally, no coarseness crackles or wheezing, no cough present CHEST: Symmetrical movement, no accessory muscle use, shallow tidal volume, no pain on anterior compression, right chest wall pain on lateral compression wi thout crepitus, ecchymosis or contusion. ABDOMEN: Soft, no distention, no abdominal tenderness, no guarding or peritoneal signs, no organomegaly, no flank or suprapubic tenderness, active bowel tones. BACK: Pain on palpation thoracic spine without palpable muscle spasm EXTREMITIES: moves all extremities, strength is 5/5 and symmetrical, no deformities or joint effusions, intact dorsi-plantar flexion NEUROLOGIC: AAO x3, no focal neurologic deficits, cranial nerves II-XII grossly intact, slight blunting sensation bilateral feet on sensory exam, hearing grossly normal to speech. PSYCH: Good eye contact, cooperative, appropriate with stable behavior Objective Labs Result Diagrams: 06/06/20 17:30 06/06/20 17:30 Labs: Laboratory Results - last 24 hr 06/06/20 06/06/20 06/06/20 17:30 17:30 17:30 WBC 13.0 H RBC 4.09 Hgb 12.7 Hct 37.7 MCV 92.2 MCH 30.9 MCHC 33.6 RDW 14.6 Plt Count 252 Neut % (Auto) 90.1 H Lymph % (Auto) 3.1 L [place] % (Auto) 6.4 Eos % (Auto) 0.0 L Baso % (Auto) 0.4 Neut # (Auto) 57823 H Lymph # (Auto) 400 L [place] # (Auto) 800 Eos # (Auto) 0 Baso # (Auto) 100 PT 23.9 H INR 2.1 H Sodium 135 L Potassium 4.4 Chloride 101 Carbon Dioxide 28 BUN 21 H Creatinine 0.72 Estimated GFR > 60.0 BUN/Creatinine Ratio 29.2 H Glucose 143 H Calcium 9.0 Total Bilirubin 1.1 AST 63 H ALT 38 H Alkaline Phosphatase 103 Total Creatine Kinase Total Protein 7.6 Albumin 4.2 Globulin 3.4 Albumin/Globulin Ratio 1.2 Lipase 30 Procalcitonin Urine Color Urine Appearance Urine pH Ur Specific [place] Urine Protein Urine Glucose (UA) Urine Ketones Urine Occult Blood Urine Nitrate Urine Bilirubin Urine Urobilinogen Ur Leukocyte Esterase Urine RBC Urine WBC Ur Squamous Epith Cells Amorphous Sediment Urine Bacteria Ur Culture Indicated? COVID-19 PCR 06/06/20 06/06/20 06/06/20 17:30 17:30 19:33 WBC RBC Hgb Hct MCV MCH MCHC RDW Plt Count Neut % (Auto) Lymph % (Auto) [place] % (Auto) Eos % (Auto) Baso % (Auto) Neut # (Auto) Lymph # (Auto) [place] # (Auto) Eos # (Auto) Baso # (Auto) PT INR Sodium Potassium Chloride Carbon Dioxide BUN Creatinine Estimated GFR BUN/Creatinine Ratio Glucose Calcium Total Bilirubin AST ALT Alkaline Phosphatase Total Creatine Kinase 146 H Total Protein Albumin Globulin Albumin/Globulin Ratio Lipase Procalcitonin 6.93 H Urine Color Yellow Urine Appearance Clear Urine pH 7.5 Ur Specific [place] 1.010 Urine Protein 1+ H Urine Glucose (UA) Negative Urine Ketones Negative Urine Occult Blood Trace-lysed Urine Nitrate Negative Urine Bilirubin Negative Urine Urobilinogen 1.0 Ur Leukocyte Esterase Negative Urine RBC 1-5/hpf Urine WBC 1-5/hpf Ur Squamous Epith Cells 0-1 /hpf Amorphous Sediment 1+ Urine Bacteria Few (2-10) H Ur Culture Indicated? Cult not indicated COVID-19 PCR 06/06/20 20:55 WBC RBC Hgb Hct MCV MCH MCHC RDW Plt Count Neut % (Auto) Lymph % (Auto) [place] % (Auto) Eos % (Auto) Baso % (Auto) Neut # (Auto) Lymph # (Auto) [place] # (Auto) Eos # (Auto) Baso # (Auto) PT INR Sodium Potassium Chloride Carbon Dioxide BUN Creatinine Estimated GFR BUN/Creatinine Ratio Glucose Calcium Total Bilirubin AST ALT Alkaline Phosphatase Total Creatine Kinase Total Protein Albumin Globulin Albumin/Globulin Ratio Lipase Procalcitonin Urine Color Urine Appearance Urine pH Ur Specific [place] Urine Protein Urine Glucose (UA) Urine Ketones Urine Occult Blood Urine Nitrate Urine Bilirubin Urine Urobilinogen Ur Leukocyte Esterase Urine RBC Urine WBC Ur Squamous Epith Cells Amorphous Sediment Urine Bacteria Ur Culture Indicated? COVID-19 PCR Negative Assessment & Plan Assessment & Plan narrative: This is an 85-year-old female who sustained recurrent falls in the setting of disequilibrium requiring visual cuing for balance who felt rushed into the bathroom secondary to urinary incontinence sustaining a T9 anterior wedging compression fracture with 40% loss of height. 1. Ground level fall, history of recurrent falls secondary to disequilibrium, present on admission, active. -patient with a history of poor balance reporting the need for visual cuing for balance that has been progressively worsening. The patient has an appointment in 2 days with her PCP Justa MAY to address the issue. -patient typically uses walking sticks for balance and support. -request physical and occupational therapy to consult evaluate and treat. 2. Pathologic compression fracture of the 9th thoracic vertebra, acute, present on admission, active -prior T4 compression fracture with prior to diagnosis of osteoporosis. -CT scan identifies an acute T9 anterior wedging compression fracture with 40% height loss, no posterior displacement of fragments into the spinal canal. -Dr. Duenas, orthopedics up, is consulted through the emergency department, we appreciate his evaluation and recommendations. -pain management with Tylenol 975 mg every 8 hours scheduled and oxycodone 5-10 mg every 4 hours as needed for pain. -ordered baclofen 10 mg t.i.d. for muscular spasms -requested PT and OT to consult, evaluate and treat. 3. Osteoporosis, chronic, present on admission, active -patient with prior diagnosis of osteoporosis dating back to 2016. -ordered calcium carbonate 1000 mg daily. -will continue D3 supplementation at 1000 mg daily. -will obtain add PTH and vitamin D 25 [place] level. 4. Acute hypoxic respiratory failure, present on admission, active -upon arrival of EMS the patient was found to be tachypneic at 28 with a room air saturation of 89% without history of lung disease. Oxygenation improves to 92% with 2 L nasal cannula. -patient with shallow respirations secondary to pain. Continue supplemental oxygen to titrate to oxygen saturation greater than 92%. -CT exam finds no pulmonary contusion or pneumothorax, no airspace disease or opacities. -request respiratory therapy consult to evaluate and treat. -incentive spirometry every 2 hours while awake. -pain management with Tylenol 975 mg every 8 hours scheduled and oxycodone 5-10 mg every 4 hours as needed for pain. 5. Current use of long-term anticoagulation on warfarin, present on admission, stable -the patient presently anticoagulated on warfarin 5 mg daily for history of recurrent DVTs. -INR on admission is 2.1. -continue current home regimen of warfarin 5 mg daily. 6. Hypothyroidism, acquired, chronic, stable -continue home regimen of levothyroxine 112 mcg daily 7. Depression,, chronic, stable -patient denies a acute depressive symptoms not to self-harm or injury. -continue home regimen of bupropion and fluoxetine. VTE prophylaxis: Bilateral SCDs, anticoagulated on warfarin IV fluid: Saline lock Diet: Heart healthy. Code status: FULL CODE, patient's daughter Dea is a surrogate decision maker The patient is admitted to the hospital due to the severity of her symptoms and risk for complications or adverse events. The patient is admitted as observation with expected length of stay to be less than 2 midnights. COVID-19 COVID-19 status: Negative Result date/Date tested (Pos, Neg/Pending): 06/06/20 Scores GCS Bean coma scale eye opening: Spontaneous [place] coma scale verbal response: Orientated Bean coma scale motor response: Obey commands Bean coma scale total score: 15
[2020-06-06] MEDS: OXYCODONE IR 5 MG TABLET PO ×2 (21:20→22:36)
[2020-06-06 21:21] LABS: Vitamin D 25 Hydroxy (D3) 51.2 ng/mL (30.0-100.0)
[2020-06-06] MEDS: ACETAMINOPHEN 325 MG TABLET 975 MG PO (21:24)
[2020-06-06] MEDS: WARFARIN 5 MG TABLET PO (22:36)
[2020-06-07] VITALS (9 sets, daily range): BP systolic 94–116; BP diastolic 44–56; PULSE 66–98; RESP 16–18; TEMP 36.2–37.7; O2SAT 91–97
[2020-06-07] MEDS: OXYCODONE IR 5 MG TABLET PO ×2 (03:36→09:38)
[2020-06-07] MEDS: ACETAMINOPHEN 325 MG TABLET 975 MG PO ×3 (05:00→21:52)
[2020-06-07] MEDS: PANTOPRAZOLE 20 MG TABLET PO (05:00)
[2020-06-07] MEDS: LEVOTHYROXINE 112 MCG TABLET PO (05:48)
[2020-06-07 05:58] LABS: Add Manual Diff / Slide Review NO; Basophils Absolute Auto 100 /uL (0-100); Basophils Percent Auto 0.8 % (0-2); Eosinophils Absolute Auto 0 /uL (0-450); Eosinophils Percent Auto 0.3 % (2-4); Hematocrit 33.2 % (36-46); Hemoglobin 11.1 g/dL (12.0-16.0); Lymphocytes Absolute Auto 700 /uL (1100-4500); Mean Corpuscular HGB Conc 33.4 % (30-36); Mean Corpuscular Hemoglobin 30.9 PG (26-34); Mean Corpuscular Volume 92.5 fL (80-100); Monocytes Absolute Auto 1400 /uL (0-900); Monocytes Percent Auto 14.2 % (3-14); Neutrophils Absolute Auto 7700 /uL (1500-7000); Neutrophils Percent Auto 77.7 % (50-75); Platelet Count 202 X10^3/uL (150-400); Red Blood Cell Count 3.58 X10^6/uL (4.0-5.2); Red Cell Distribution Width 14.9 % (11.6-14.8)
[2020-06-07 06:02] LABS: Prothrombin Time 22.6 SECONDS (10.1-12.7)
[2020-06-07 06:07] LABS: BUN Creatinine Ratio 23.6 (6-22); Blood Urea Nitrogen 26 mg/dL (7-17); Calcium 8.1 mg/dL (8.4-10.2); Carbon Dioxide 27 mmol/L (22-32); Chloride 100 mmol/L (98-107); Estimated Glomerular Filt Rate 47.4 mL/min (>60); Glucose 115 mg/dL (80-110); HEMOLYSIS < 15 (0-50); Magnesium 2.1 mg/dL (1.6-2.3); Potassium 4.1 mmol/L (3.4-5.1); Sodium 132 mmol/L (137-145)
--- NOTE | 2020-06-07 07:12 | PM.CN ---
History of Present Illness Consult details Date Patient Seen: 06/07/20 Time Patient Seen: 07:12 Chief complaint: Fall Reason for consult: T9 Compression Fracture Requesting provider: Ethan Landin Narrative: Patient is an 85-year-old woman who lives independently. She had a slip and fall landing on her back yesterday and was unable to mobilize. She was seen in the emergency department and CT scans of her head cervical spine and chest abdomen and pelvis were performed. To compression fractures were diagnosed, one at T4 and one at T9. The T9 fracture appears to be acute. Orthopedic consultation is obtained due to these fractures. It should be noted that the patient was aware of the old T4 fracture and confirms that it is not acute. Meds Home Medications and Allergies Home Medications Medication Instructions Recorded Confirmed Type VITAMIN D (Vitamin D3) 1,000 unit PO QDAY #0 11/12/12 06/06/20 History Disabled Parking Permit ea #1 06/12/17 06/30/19 Rx warfarin 5 mg tablet 5 mg PO QDAY #90 tab 07/23/18 06/06/20 Rx prothrombin time test strips #6 each 09/01/18 06/30/19 Rx prothrombin time/INR test metr #1 each 11/16/18 06/30/19 Rx fluoxetine 20 mg capsule 20 mg PO BID #180 cap 01/21/19 06/06/20 Rx omeprazole 20 mg capsule,delayed 20 mg PO DAILY 06/07/19 06/06/20 History release bupropion HCl 100 mg tablet,12 hr 100 mg PO Q12H #60 tab 04/28/20 06/06/20 Rx sustained-release levothyroxine 112 mcg tablet See Rx Instructions .ROUTE 06/05/20 06/06/20 Rx .COMPLEX #30 tab Allergies Allergy/AdvReac Type Severity Reaction Status Date / Time adhesive [ADHESIVE] Allergy Mild ITCHY Verified 06/30/19 14:18 ibuprofen [IBUPROFEN] Allergy Mild PALPITATION Verified 06/30/19 14:18 S Penicillins [PENICILLINS] Allergy Mild LOCAL Verified 06/30/19 14:18 REACTION FROM INJ/RED AT SITE shellfish derived Allergy Mild ITCHY/VOMIT Verified 06/30/19 14:18 [SHELLFISH DERIVED] ING Review of Systems Review of Systems ROS: Yes All systems reviewed with the patient and are negative except as otherwise documented Exam Vital Signs (past 8 hours): - 06/07/20 00:18 06/07/20 05:00 Temperature 98.3 F 98.5 F Pulse Rate 81 98 H Respiratory Rate 18 18 Blood Pressure 116/49 L 116/44 L Pulse Oximetry 93 94 Oxygen Delivery Method Nasal Cannula Oxygen Flow Rate 2 Narrative Exam Narrative: The patient is seen lying in bed and moving fairly comfortably except for attempting to roll over. There is no tenderness on her cervical spine or shoulder girdle. There is tenderness in the midthoracic region with no palpable step-offs. There is no lumbar tenderness, no tenderness on pelvic compression and no pain on motion of the legs. She has intact light touch throughout both lower extremities. She can perform an active straight leg raise of both legs. She has 5/5 hamstring strength as well as full strength in foot and toe dorsiflexion and plantar flexion. Objective Labs Result Diagrams: 06/07/20 05:45 06/07/20 05:45 Labs: Laboratory Results - last 24 hr 06/06/20 06/06/20 06/06/20 17:30 17:30 17:30 WBC 13.0 H RBC 4.09 Hgb 12.7 Hct 37.7 MCV 92.2 MCH 30.9 MCHC 33.6 RDW 14.6 Plt Count 252 Neut % (Auto) 90.1 H Lymph % (Auto) 3.1 L [place] % (Auto) 6.4 Eos % (Auto) 0.0 L Baso % (Auto) 0.4 Neut # (Auto) 44683 H Lymph # (Auto) 400 L [place] # (Auto) 800 Eos # (Auto) 0 Baso # (Auto) 100 PT 23.9 H INR 2.1 H Sodium 135 L Potassium 4.4 Chloride 101 Carbon Dioxide 28 BUN 21 H Creatinine 0.72 Estimated GFR > 60.0 BUN/Creatinine Ratio 29.2 H Glucose 143 H Calcium 9.0 Magnesium Total Bilirubin 1.1 AST 63 H ALT 38 H Alkaline Phosphatase 103 Total Creatine Kinase Total Protein 7.6 Albumin 4.2 Globulin 3.4 Albumin/Globulin Ratio 1.2 Lipase 30 25-OH Vitamin D Total Procalcitonin Urine Color Urine Appearance Urine pH Ur Specific [place] Urine Protein Urine Glucose (UA) Urine Ketones Urine Occult Blood Urine Nitrate Urine Bilirubin Urine Urobilinogen Ur Leukocyte Esterase Urine RBC Urine WBC Ur Squamous Epith Cells Amorphous Sediment Urine Bacteria Ur Culture Indicated? COVID-19 PCR 06/06/20 06/06/20 06/06/20 17:30 17:30 17:30 WBC RBC Hgb Hct MCV MCH MCHC RDW Plt Count Neut % (Auto) Lymph % (Auto) [place] % (Auto) Eos % (Auto) Baso % (Auto) Neut # (Auto) Lymph # (Auto) [place] # (Auto) Eos # (Auto) Baso # (Auto) PT INR Sodium Potassium Chloride Carbon Dioxide BUN Creatinine Estimated GFR BUN/Creatinine Ratio Glucose Calcium Magnesium Total Bilirubin AST ALT Alkaline Phosphatase Total Creatine Kinase 146 H Total Protein Albumin Globulin Albumin/Globulin Ratio Lipase 25-OH Vitamin D Total 51.2 Procalcitonin 6.93 H Urine Color Urine Appearance Urine pH Ur Specific [place] Urine Protein Urine Glucose (UA) Urine Ketones Urine Occult Blood Urine Nitrate Urine Bilirubin Urine Urobilinogen Ur Leukocyte Esterase Urine RBC Urine WBC Ur Squamous Epith Cells Amorphous Sediment Urine Bacteria Ur Culture Indicated? COVID-19 PCR 06/06/20 06/06/20 06/07/20 19:33 20:55 05:45 WBC 10.0 RBC 3.58 L Hgb 11.1 L Hct 33.2 L MCV 92.5 MCH 30.9 MCHC 33.4 RDW 14.9 H Plt Count 202 Neut % (Auto) 77.7 H Lymph % (Auto) 7.0 L [place] % (Auto) 14.2 H Eos % (Auto) 0.3 L Baso % (Auto) 0.8 Neut # (Auto) 7700 H Lymph # (Auto) 700 L [place] # (Auto) 1400 H Eos # (Auto) 0 Baso # (Auto) 100 PT INR Sodium Potassium Chloride Carbon Dioxide BUN Creatinine Estimated GFR BUN/Creatinine Ratio Glucose Calcium Magnesium Total Bilirubin AST ALT Alkaline Phosphatase Total Creatine Kinase Total Protein Albumin Globulin Albumin/Globulin Ratio Lipase 25-OH Vitamin D Total Procalcitonin Urine Color Yellow Urine Appearance Clear Urine pH 7.5 Ur Specific [place] 1.010 Urine Protein 1+ H Urine Glucose (UA) Negative Urine Ketones Negative Urine Occult Blood Trace-lysed Urine Nitrate Negative Urine Bilirubin Negative Urine Urobilinogen 1.0 Ur Leukocyte Esterase Negative Urine RBC 1-5/hpf Urine WBC 1-5/hpf Ur Squamous Epith Cells 0-1 /hpf Amorphous Sediment 1+ Urine Bacteria Few (2-10) H Ur Culture Indicated? Cult not indicated COVID-19 PCR Negative 06/07/20 06/07/20 05:45 05:45 WBC RBC Hgb Hct MCV MCH MCHC RDW Plt Count Neut % (Auto) Lymph % (Auto) [place] % (Auto) Eos % (Auto) Baso % (Auto) Neut # (Auto) Lymph # (Auto) [place] # (Auto) Eos # (Auto) Baso # (Auto) PT 22.6 H INR 2.0 H Sodium 132 L Potassium 4.1 Chloride 100 Carbon Dioxide 27 BUN 26 H Creatinine 1.10 H Estimated GFR 47.4 L BUN/Creatinine Ratio 23.6 H Glucose 115 H Calcium 8.1 L Magnesium 2.1 Total Bilirubin AST ALT Alkaline Phosphatase Total Creatine Kinase Total Protein Albumin Globulin Albumin/Globulin Ratio Lipase 25-OH Vitamin D Total Procalcitonin Urine Color Urine Appearance Urine pH Ur Specific [place] Urine Protein Urine Glucose (UA) Urine Ketones Urine Occult Blood Urine Nitrate Urine Bilirubin Urine Urobilinogen Ur Leukocyte Esterase Urine RBC Urine WBC Ur Squamous Epith Cells Amorphous Sediment Urine Bacteria Ur Culture Indicated? COVID-[address] scan of the neck is reviewed. This was obtained June 06, 2020 and reveals chronic degenerative changes and what appears to be an old T4 fracture. The CT scan of the chest, abdomen and pelvis is reviewed. There is a T9 compression fracture which is estimated at 40% compression by the radiologist, I think this may be a slight over estimation. There is no posterior or middle column involvement. No evidence for neurologic compression. Assessment & Plan Assessment & Plan narrative: The patient is an elderly woman with a history of osteoporosis. She lives independently but has ?good neighbors?. She has a history of a prior T4 fracture and a new T9 fracture. For treatment of the fracture I would recommend an abdominal binder. This will be easier for her to put on and off than a formal brace. She should mobilize with physical therapy. No spine precautions are necessary. Discharge disposition will need evaluation with discharge planning and is dependent upon her progress mobilizing with physical therapy. She should follow up at the orthopedic office in approximately 2 weeks for repeat x-rays and potential kyphoplasty if clinically indicated at that time. If additional issues arise during the hospitalization, please feel free to contact the Orthopedic Service. Time Spent With Patient Time with patient: 15-24 minutes
--- NOTE | 2020-06-07 08:56 | CM.DANOTE ---
Addendum entered by Haritha Machuca R.N. 06/07/20 12:39: Had Dr. Taylor sign face to face for home health. Will fax over H&P, face sheet, over to [facility]. Let patient know that it is most likely to go home tomorrow. She is to be getting a back brace tomorrow, as well. Asked her about getting a friend to come over tomorrow for training. She mentioned that she can let Louisa, know, for she helps her with medical decisions. Patient is continue to have some discomfort working with P.T. Original Note: DCP: Case received, EMR reviewed and met with patient. Introduced self and role. Was able to obtain information from patient regarding her baseline activity status and living situation prior to hospitalization. DCP assessment completed with information currently available. Patient is an 85 year old patient admitted yesterday evening to the care of the hospitalist team. PCP: Liliana MAY. Payer: confirmed: Medicare/[employer]. Patient came to the hospital secondary to a ground level fall, via ambulance. She had fallen, when she was on her way to the bathroom. She had not been able to get up, so EMS was called. Her current diagnosis is compression fracture, but patient does have chronic compression fracture. She had rib pain post fall, and was hypoxic. Met with patient in her room. She is alert and oriented, was sitting up in bed. Her aunt was present in the room. Patient resides alone on [facility]. She indicated that she has had falls before. She stated that orthopedic came and spoke to her stating she may need skilled rehab, but patient stated, I'm not going to any rehab facility. Let her know that it would likely not be covered, since now she is observation status. Patient stated she uses a walking stick at home, but is independent. Asked her if she had anyone that could help her at home when she gets discharged, and she indicated, I have lots of friends and neighbors on [facility], some of them nurses, that should be able to help me if needed. Discussed home health, patient stated, would be a good option. Asked her if her daughter, Dea, was her POA, and patient indicated, they were working on getting the paperwork completed. Her daughter resides in [place]. P: DCP to follow closely. She has not yet worked with P.T, will see how she does with her mobility. Home health may be an option for her, [facility] the only [facility] that goes to [facility]. Will also discuss at team rounds. Haritha Machuca, JOE/Data Base Administrator
[2020-06-07] MEDS: BACLOFEN 10 MG TABLET PO ×2 (09:38→21:52)
[2020-06-07] MEDS: CALCIUM CARBONATE 500 MG TAB 1000 MG PO (09:38)
[2020-06-07] MEDS: CHOLECALCIFEROL (VITAMIN D3) 1,000 UNIT TABLET 1000 UNIT PO (09:38)
--- NOTE | 2020-06-07 11:15 | OT.IP.EVAL ---
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 (Rec: 06/07/20 12:26 [facility] [id number]) Medical Review Prior Functional Status Medical History Reviewed Yes Diet/Fluid Consistency Regular Communication no deficits noted. able to make needs known Mobility and Gait pt is independent for mobility without AD but uses walking sticks for community ambulation. Pt stated her balance has been getting worse and had 5 falls within the past year but significant injury. Pt stated she relies on vision cues for balance. Activities of Daily Living and IADL's Independent for ADLs and IADLs without AD. Her neighbor do send her meals sometimes. Pt has a helper once a month for house cleaning. Prior Functional Level (Other details) pt has a 3 wheeled walker for her previous lumbar sx. Social History Household Members spouse,none Living Arrangements House Number of Floors (Floors) Two Floors Number of Stairs To Enter/Railing? 3 SHAGGY to front entrance without rails 3 SHAGGY to garage entrance with a top bar at the 3rd step for support. (pt's preference) pt sleep on 2nd floor with 19 steps with R railing and a landing in between. She stated she can stay on main floor guest room if needed. Home Environment High Toilet Home Equipment Front Wheel Walker,Built in seat for walk in shower ,Hand Held Shower,long handled shoe horn,Grab Bars In Shower Employment Status Retired Additional Social History Comment Pt lives alone in [facility] who has supportive neighbors to assist if needed. She stated one of her neighbors can stay with her upon d/c and plan to stay on mainf ghulam guest room with bathroom access. Pt has 2 dtr one in [facility] and one in [place] . Her dtr in [place] is going to visit her in 10 days and will be able to assist. Pt PMH includes significant for hypothyroidism, hyperlipidemia , prior DVTs anticoagulated on warfarin, depression, disequilibrium, T4 compression fx, previous lumbar surgery and osteoporosis M2 OT-IP Current Condition Start: 06/07/20 12:08 Freq: Status: Active Protocol: Document 06/07/20 10:20 [facility] (Rec: 06/07/20 12:26 [facility] [id number]) Occupational Therapy Current Condition Current Condition Evaluation Date 06/07/20 Treatment Diagnosis GLF with acute T9 compression fracture , decreased mobility Diagnosis Onset Date 06/06/20 M3 OT- IP Subjective and Pain Start: 06/07/20 12:08 Freq: Status: Active Protocol: Document 06/07/20 10:20 [facility] (Rec: 06/07/20 12:26 [facility] [id number]) OT- Subjective Occupational Therapy Visit Type Type Initial Evaluation Visit Start Time 10:30 Visit Stop Time 11:15 Total Visit Minutes 45 Occupational Therapy Visit Comments Patient Comments Pt agreed to get up. Patient/Caregiver Goals To go home and not be is so much back pain. OT Pain Assessment Pain When Pain Assessed During Mobility Pain Present Pain Present Pain Reported Location Back Intensity 8 Scale Used Numeric (0 - 10) M4 OT- IP ADL's Start: 06/07/20 12:08 Freq: Status: Active Protocol: Document 06/07/20 10:20 [facility] (Rec: 06/07/20 12:26 [facility] [id number]) OT [id number] General Evaluation Self-Feeding Ability Independent OT ADL-Grooming Comments OT Grooming Comments Pt in too much pain to attempt . OT ADL-Dressing General Eval Lower Body Dressing Ability Maximum Assistance Areas Needing Assistance Underpants/Brief,Socks Comments OT Dressing Comments MAXA for socks and brief needs . OT ADL-Toileting General Evaluation Toileting Ability Maximum Assistance Areas Needing Assistance Manage Clothing Comments OT Toileting Comments Pt able to wipe from the front and not able to pull up her brief as in too much pain and pt able to stand with fww. Educated will be easier to stand to wipe after a bowel movement. OT ADL-Bathing Comments OT Bathing Comments Not at this time. M5 OT- IP IADL's Start: 06/07/20 12:08 Freq: Status: Active Protocol: Document 06/07/20 10:20 [facility] (Rec: 06/07/20 12:26 [facility] [id number]) OT-Instrumental Activities of Daily Living Medication Management Medication Management No Deficits Identified Money Management Money Management No Deficits Identified Meal Preparation Meal Preparation Comments At this time, due to pt's back pain, pt will need to have assist at home for meal prep, chores, and ADl needs. M6 OT- IP Functional Cognition Start: 06/07/20 12:08 Freq: Status: Active Protocol: Document 06/07/20 10:20 [facility] (Rec: 06/07/20 12:26 [facility] [id number]) Cognitive Factors Limiting Selfcare Function Cognitive Ability Level of Alertness Alert Patient Orientation Name,Age,Birthday,Month,Date, Year,Day of Week,Place, Situation Attention Span Ability Capable of Focused Attention, Capable of Sustained Attention Ability to Follow Commands Able to Follow One Step Commands Cognitive Comments Cognitive Assessment Comments Pt able to follow one step commands but a little groggy from pain medications and needing assist for safety awareness at this time. M7 OT- IP Mobility and Balance Start: 06/07/20 12:08 Freq: Status: Active Protocol: Document 06/07/20 10:20 [facility] (Rec: 06/07/20 12:26 [facility] [id number]) OT- Bed Mobility Assessment Rolling Type of Rolling Roll to Right Level of Assistance Contact Guard Assistance OT-Transfer Assessment Sit to and From Stand Sit to and from Stand Minimal Assistance,Moderate Assistance Transfers Transfer Ability Minimal Assistance,Moderate Assistance Technique Transfer Destination Chair,Toilet Transfer Technique Stand Step Pivot Devices Transfer Assistive Devices Gait Belt,Front Wheeled Walker Comments Mobility Comments Pt needing more assist from lower surfaces when coming to stand. OT- Gait Assessment Comments Gait Ability Comments FREDI with FWW when up. OT- Balance Assessment Sitting Balance and Reactions Static Sitting Balance Ability Good Dynamic Sitting Balance Ability Fair Standing Balance and Reactions Static Standing Balance Ability Fair M8 OT- IP Objective Assessments Start: 06/07/20 12:08 Freq: Status: Active Protocol: Document 06/07/20 10:20 [facility] (Rec: 06/07/20 12:26 [facility] [id number]) OT Strength Comments Strength Comments Not tested due to compression fracture. M9 OT- IP Assessment and Plan Start: 06/07/20 12:08 Freq: Status: Active Protocol: Document 06/07/20 10:20 [facility] (Rec: 06/07/20 12:26 [facility] [id number]) OT Summary Assessment and Plan Potential Rehabilitation Potential Good Analytic Complexity at Evaluation Low Summary OT Impairments Pain,Balance,Functional Mobility,Grooming,Dressing, Toileting,Bathing,Toilet Transfers,Shower Transfers, Activity Tolerance Progress Towards Goals Slow Progress due to Pain,Slow Progress due to Activity Tolerance Assessment Summary Pt low complexity and here due to GLF resulting in T9 compression fracture. Ortho consult noted for pt to have an abdominal binder and in chart wrote no spinal precautions necessary. Pt at this time needing MODA to stand and MAX A for LB dressing needs due to her pain and not able to bend over at this time to be able to do her ADL needs. Pt has had multiple falls in the past year and would benefit from skilled rehab as pt lives alone, otherwise suggest home with assist and HH. Goals Self-Feeding Goal Independent Grooming Goal Independent Dressing Goal Independent Toileting Goal Independent Bathing Goal Independent Toilet Transfer Goal Independent Shower Transfer Goal Independent Days to Meet Goals 10 Frequency of Treatment Frequency Of Treatment Once a Day Treatment Plan OT Treatment Plan ADL Training,Functional Cognition Training,Functional Mobility,Patient/Family Education,Discharge Planning Other Treatment Recommendations and Next Stand at sink with FWW for Treatment Focus grooming needs SBA. Discharge Recommendations OT Discharge Recommendations Home with Assistance,Home Health,SNF Rehab Home Equipment Needs FWW, shower chair, BSC Transportation Needs at Discharge Private Vehicle
--- NOTE | 2020-06-07 11:40 | PT.IIE ---
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 fracture, vertebra(e), initial encounter for fracture (06/06/20) Surgical History (Last Reviewed 06/07/20 @ 07:14 by Corey Duenas MD) History of lumbar fusion (Acute) Medical History (Last Reviewed 06/07/20 @ 07:14 by Corey Duenas MD) Colon polyps (Resolved 2014) Depression (Chronic) DVT (deep venous thrombosis) (Resolved) Hyperlipidemia (Chronic) Hypothyroidism (Chronic) shelter current use of anticoagulant (Chronic) Osteoporosis (Chronic 05/16/16) Physical Therapy Inpatient Evaluation/Re-Eval M1 PT/OT-IP Prior Functional Status Start: 06/07/20 08:27 Freq: NEEDED Status: Active Protocol: Document 06/07/20 11:00 HH (Rec: 06/07/20 11:40 HH [id number]) Medical Review Prior Functional Status Medical History Reviewed Yes Diet/Fluid Consistency Regular Communication no deficits noted. able to make needs known Mobility and Gait pt is independent for mobility without AD but uses walking ticks for community ambulation . Pt stated her balance has been getting worse and had 5 falls within the past year but signifciant injury. Pt stated she relies on vision cues for balance. Activities of Daily Living and IADL's Independent for ADLs and IADLs without AD. Her neighbor do send her meals sometimes. Pt has a helper once a month for house cleaning. Prior Functional Level (Other details) pt has a 3 wheeled walker for her previous lumbar sx. Social History Household Members spouse,none Living Arrangements House Number of Floors (Floors) Two Floors Number of Stairs To Enter/Railing? 3 SHAGGY to front entrance without rails 3 SHAGGY to garage entrance with a top bar at the 3rd step for support. (pt's preference) pt sleep on 2nd floor with 19 steps with R railing and a landing in between. She stated she can stay on main floor guest room if needed. Home Environment High Toilet Home Equipment Front Wheel Walker,Tub Transfer Bench,Hand Held Shower,Turf Keeper,Grab Bars In Shower Employment Status Retired Additional Social History Comment Pt lives alone in [facility] who has supportive neighbors to assist if needed. She stated one of her neighbors can stay with her upon d/c and plan to stay on mainfloor guest room with bathroom access. Pt has 2 dtr one in [facility] and one in [place] . Her dtr in [place] is going to visit her in 10 days and will be able to assist. Pt PMH includes significant for hypothyroidism, hyperlipidemia , prior DVTs anticoagulated on warfarin, depression, disequilibrium, T4 compression fx, previous lumbar surgery and osteoporosis M2 PT-IP Current Condition Start: 06/07/20 08:27 Freq: NEEDED Status: Active Protocol: Document 06/07/20 11:00 HH (Rec: 06/07/20 11:40 [email or web address]) Physical Therapy Current Condition Current Condition Evaluation Date 06/07/20 Treatment Diagnosis T9 compression fx s/p GLF, difficulty in walking, decrease in balance Onset Date 06/06/20 Precautions Other Precautions Per ortho note, For treatment of the fracture I would recommend an abdominal binder. This will be easier for her to put on and off than a formal brace. She should mobilize with physical therapy . No spine precautions are necessary. Discharge disposition will need evaluation with discharge planning and is dependent upon her progress mobilizing with physical therapy. She should follow up at the orthopedic office in approximately 2 weeks for repeat x-rays and potential kyphoplasty if clinically indicated at that time. Weight Bearing Status Weight Bearing Status Full Weight Bearing M3 PT-IP Subjective Start: 06/07/20 08:27 Freq: NEEDED Status: Active Protocol: Document 06/07/20 11:00 (Rec: 06/07/20 11:40 [email or web address]) Subjective Physical Therapy Visit Type Type Initial Evaluation Visit Start Time 10:05 Visit Stop Time 10:40 Total Visit Minutes 35 Notes Acquired abdominal brace size 30-45 from nursing staff Number of GRILL PREP COOK Visits 0 Physical Therapy Visit Comments Patient Comments I have a lot of pain on my back. Patient Goals To return home with assistance from neighbor and dtr possibly. Therapy Pain Assessment Pain When Pain Assessed During Mobility Pain Present Pain Present Pain Reported Location Back Intensity 6 Scale Used Numeric (0 - 10) Description Acute Pain Behaviors Facial Grimacing Pain Management Techniques Timing of Activity with Medications M4 PT-IP Mobility and Gait Start: 06/07/20 08:27 Freq: NEEDED Status: Active Protocol: Document 06/07/20 11:00 HH (Rec: 06/07/20 11:40 [email or web address]) PT-Bed Mobility Assessment Rolling Type of Rolling Roll to Left Level of Assist Contact Guard Assistance Supine to Sit Supine to Sit Contact Guard Assistance, Bedrails PT-Transfer Assessment Sit to and From Stand Sit to and from Stand Contact Guard Assistance, Minimal Assistance,Use of Upper Extremities Equipment Transfer Assistive Device Straight Cane,Front Wheeled Walker Orthotic/Prosthetic Devices or Brace: No Transfers Transfer Destination Bed,Chair Transfer Technique Stand Step Pivot Transfer Ability Level of Assist Minimal Assistance,Use of Upper Extremities Comments Mobility Comments Pt was in bed upon PT arrival. AxO x 4. at She stated Ortho Dr. Duenas saw her earlier and recommended abdominal binder with no specific spinal precautions. Pt agreed to mobilize with PT. Educated pt on using log roll for bed mobility and she was able to complete but needed L bed rail to pull. She then pushed herself up from SL position to seated very slowly with CGA. Pt then called out for pain and appeared to be very uncomfortable in seated position. Attempted to fit abdominal binder for her but it was too small. OT came in and assisted in checking inventory. Pt then stood up with CGA/ min A with cues on keeping her trunk upright. Pt then able to amb within the room the slowly with step over gait, followed [facility] Pt appeared fatigue and increased trunk forward leaning towards the end of gait training but she did state her pain is consistent 6/10. Pt then returned to chair with safe transfer min A x 1. Placed pillows underneath and behind her back for comfort. Pt rested comfortably in chair and left pt with OT for cont assessment. Pt's BP ranged from 110s-120s/80s during session. SpO2 at 96% Gait Assessment Gait Gait Assistance Required: Contact Guard Assist Distance (Feet) 230 Able to Maintain Weight Bearing Status Yes During Gait Assistive Devices Assistive Device Gait Belt,Front Wheeled Walker Orthotic/Prosthetic Devices or Brace: No Gait Deviations General Gait Pattern Within Normal Limits,Antalgic, Decreased Stride Length, Decreased Feet Clearance, Flexed Trunk Factors Limiting Gait Function Factors Limiting Gait Function Decreased Activity Tolerance, Decreased Strength,Limited Range of Motion,Pain,Poor Balance,Respiratory Distress Comments Gait Comments see mobility comments. Stair Climbing Assessment Comments Stair Climbing Comments did not attempt d/t pain and fatigue PT-Balance Assessment Sitting Balance and Reactions Static Sitting Balance Ability Normal Dynamic Sitting Balance Ability Normal Standing Balance and Reactions Static Standing Balance Ability Good Dynamic Standing Balance Ability Good Device Used FWW M5 PT-IP Objective Assessments Start: 06/07/20 08:27 Freq: NEEDED Status: Active Protocol: Document 06/07/20 11:00 (Rec: 06/07/20 11:40 [id number]) Orientation Orientation/Cognition Level of Alertness Alert Orientation Name,Age,Birthday,Month,Date, Year,Day of Week,Place, Situation Language Function Ability No Deficits Noted Safety Awareness Understands Safety Issues Memory Description No Deficits Noted Gross Range of Motion Upper Extremity ROM Assessment Within Functional Limits Lower Extremity ROM Assessment Within Functional Limits Strength Upper Extremity Strength Assessment Within Functional Limits Lower Extremity Strength Assessment Within Functional Limits Coordination Assessment Gross Coordination Gross Coordination WNL Sensation Assessment Sensation Gross Sensation WNL Muscle Tone Muscle Tone WNL Yes M6 PT-IP Treatment Start: 06/07/20 08:27 Freq: NEEDED Status: Active Protocol: Document 06/07/20 11:00 (Rec: 06/07/20 11:40 [email or web address]) Physical Therapy Treatment Education Education Provided Precautions,Weight Bearing Status,Safety M7 PT-IP Assessment and Plan Start: 06/07/20 08:27 Freq: NEEDED Status: Active Protocol: Document 06/07/20 11:00 (Rec: 06/07/20 11:40 [email or web address]) PT Summary Assessment and Plan Potential Rehabilitation Potential Excellent Status of Condition at Evaluation Evolving Summary Impairments Pain,ROM,Strength,Balance,Bed Mobility,Transfers,Gait, Activity Tolerance Assessment Summary This is a low complexity evaluation for this 85yo female admitted to for T9 compression fx after a GLF. Per ortho consult, abdominal binder and No spine precautions are necessary. Pt will have f/u in 2 weeks for repeat x-rays. Pt's PLOF is completely independent with walking sticks for community mobility. She does have hx of falls d/t declining balance. Upon assessment, the abdominal binder was too small for her. This PT left message for [employer] for a size L. Pt overall did fairly well but has pain 6/10 for mobility and appeared to be fatigue with trunk bending movement and ambulation with FWW. She overall needed 1PA. OT stated that pt needed modA after this session d/t increased pain and fatigue. Pt's pain is her primary limitation at this point and she will need home health and consistent home assistance from her neighbor / daughter to address her mobility needs. Goals Bed Mobility Goal Standby Assistance Transfer Goal Standby Assistance,Front Wheeled Walker Gait Goal Standby Assistance,Front Wheel Walker Gait Distance 500 Other Goals 3 SHAGGY with cane/ FWW with SBA Days to Meet Goals 3 Frequency of Treatment Frequency Of Treatment Once a Day Treatment Plan Physical Therapy Treatment Plan Bed Mobility Training,Transfer Training,Gait Training, Therapeutic Exercise,Balance Retraining,Discharge Planning, Hot or Cold Pack Other Recommendations and Next Treatment review log roll Focus abdominal binder fitting mobility as cynthia Recommendations To Nursing Amount of Assist Needed 1 Person Assist Discharge Recommendations PT Discharge Recommendations Home with Assistance,Home Health Equipment Needed for Home Before BSC, FWW, shower chair for Discharge downstair Transportation Needs at Discharge Private Vehicle
--- NOTE | 2020-06-07 13:01 | PM.PN.1 ---
Subjective Subjective Date Patient Seen: 06/07/20 Time Patient Seen: 13:01 Interval history: Ms. 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 She still reports significant pain in her back, but did fairly well with physical therapy today who recommended home with home health. Will try and optimize her pain control as much as possible before likely discharge home tomorrow. Exam Vital Signs (past 8 hours): - 06/07/20 07:53 06/07/20 09:00 06/07/20 10:22 Temperature 98.7 F Pulse Rate 66 Respiratory Rate 16 Blood Pressure 113/56 L Pulse Oximetry 94 94 94 06/07/20 11:00 Temperature 98.0 F Pulse Rate 76 Respiratory Rate 16 Blood Pressure 107/47 L Pulse Oximetry 97 Oxygen Delivery Method Room Air Oxygen Flow Rate 0 Narrative Exam Narrative: GENERAL APPEARANCE: well developed, adequately nourished, uncomfortable appearing with back spasms. HEENT: Atraumatic, PERRLA, conjunctiva clear, EOMs intact without nystagmus, no sinus tenderness to percussion, no rhinorrhea, mucous membranes are moist and pink without lesions or exudate. NECK/THYROID: Preserved range of motion, nontender to palpation, no step-offs, no JVD, no thyromegaly, trachea midline. LYMPH NODES: no cervical or supraclavicular lymphadenopathy. SKIN: [place], warm and dry, ecchymosis bilateral forearms HEART: regular rate and rhythm, S1-S2, no murmur, no rubs or gallops, brisk capillary refill, no edema LUNGS: clear to auscultation bilaterally, no coarseness crackles or wheezing, no cough present CHEST: Symmetrical movement, no accessory muscle use, shallow tidal volume. ABDOMEN: Soft, no distention, no abdominal tenderness, no guarding or peritoneal signs, no organomegaly, no flank or suprapubic tenderness, active bowel tones. BACK: Mild Pain on palpation thoracic spine. Mild paraspinal muscle tenderness as well. EXTREMITIES: moves all extremities, strength is 5/5 and symmetrical, no deformities or joint effusions, intact dorsi-plantar flexion NEUROLOGIC: AAO x3, no focal neurologic deficits, cranial nerves II-XII grossly intact, slight blunting sensation bilateral feet on sensory exam, hearing grossly normal to speech. PSYCH: Good eye contact, cooperative, appropriate with stable behavior Objective Labs Result Diagrams: 06/07/20 05:45 06/07/20 05:45 Labs: Laboratory Results - last 24 hr 06/06/20 06/06/20 06/06/20 17:30 17:30 17:30 WBC 13.0 H RBC 4.09 Hgb 12.7 Hct 37.7 MCV 92.2 MCH 30.9 MCHC 33.6 RDW 14.6 Plt Count 252 Neut % (Auto) 90.1 H Lymph % (Auto) 3.1 L Patrick % (Auto) 6.4 Eos % (Auto) 0.0 L Baso % (Auto) 0.4 Neut # (Auto) 69367 H Lymph # (Auto) 400 L Patrick # (Auto) 800 Eos # (Auto) 0 Baso # (Auto) 100 PT 23.9 H INR 2.1 H Sodium 135 L Potassium 4.4 Chloride 101 Carbon Dioxide 28 BUN 21 H Creatinine 0.72 Estimated GFR > 60.0 BUN/Creatinine Ratio 29.2 H Glucose 143 H Calcium 9.0 Magnesium Total Bilirubin 1.1 AST 63 H ALT 38 H Alkaline Phosphatase 103 Total Creatine Kinase Total Protein 7.6 Albumin 4.2 Globulin 3.4 Albumin/Globulin Ratio 1.2 Lipase 30 25-OH Vitamin D Total Procalcitonin Urine Color Urine Appearance Urine pH Ur Specific [place] Urine Protein Urine Glucose (UA) Urine Ketones Urine Occult Blood Urine Nitrate Urine Bilirubin Urine Urobilinogen Ur Leukocyte Esterase Urine RBC Urine WBC Ur Squamous Epith Cells Amorphous Sediment Urine Bacteria Ur Culture Indicated? COVID-19 PCR 06/06/20 06/06/20 06/06/20 17:30 17:30 17:30 WBC RBC Hgb Hct MCV MCH MCHC RDW Plt Count Neut % (Auto) Lymph % (Auto) Patrick % (Auto) Eos % (Auto) Baso % (Auto) Neut # (Auto) Lymph # (Auto) Patrick # (Auto) Eos # (Auto) Baso # (Auto) PT INR Sodium Potassium Chloride Carbon Dioxide BUN Creatinine Estimated GFR BUN/Creatinine Ratio Glucose Calcium Magnesium Total Bilirubin AST ALT Alkaline Phosphatase Total Creatine Kinase 146 H Total Protein Albumin Globulin Albumin/Globulin Ratio Lipase 25-OH Vitamin D Total 51.2 Procalcitonin 6.93 H Urine Color Urine Appearance Urine pH Ur Specific [place] Urine Protein Urine Glucose (UA) Urine Ketones Urine Occult Blood Urine Nitrate Urine Bilirubin Urine Urobilinogen Ur Leukocyte Esterase Urine RBC Urine WBC Ur Squamous Epith Cells Amorphous Sediment Urine Bacteria Ur Culture Indicated? COVID-19 PCR 06/06/20 06/06/20 06/07/20 19:33 20:55 05:45 WBC 10.0 RBC 3.58 L Hgb 11.1 L Hct 33.2 L MCV 92.5 MCH 30.9 MCHC 33.4 RDW 14.9 H Plt Count 202 Neut % (Auto) 77.7 H Lymph % (Auto) 7.0 L Patrick % (Auto) 14.2 H Eos % (Auto) 0.3 L Baso % (Auto) 0.8 Neut # (Auto) 7700 H Lymph # (Auto) 700 L Patrick # (Auto) 1400 H Eos # (Auto) 0 Baso # (Auto) 100 PT INR Sodium Potassium Chloride Carbon Dioxide BUN Creatinine Estimated GFR BUN/Creatinine Ratio Glucose Calcium Magnesium Total Bilirubin AST ALT Alkaline Phosphatase Total Creatine Kinase Total Protein Albumin Globulin Albumin/Globulin Ratio Lipase 25-OH Vitamin D Total Procalcitonin Urine Color Yellow Urine Appearance Clear Urine pH 7.5 Ur Specific [place] 1.010 Urine Protein 1+ H Urine Glucose (UA) Negative Urine Ketones Negative Urine Occult Blood Trace-lysed Urine Nitrate Negative Urine Bilirubin Negative Urine Urobilinogen 1.0 Ur Leukocyte Esterase Negative Urine RBC 1-5/hpf Urine WBC 1-5/hpf Ur Squamous Epith Cells 0-1 /hpf Amorphous Sediment 1+ Urine Bacteria Few (2-10) H Ur Culture Indicated? Cult not indicated COVID-19 PCR Negative 06/07/20 06/07/20 05:45 05:45 WBC RBC Hgb Hct MCV MCH MCHC RDW Plt Count Neut % (Auto) Lymph % (Auto) Patrick % (Auto) Eos % (Auto) Baso % (Auto) Neut # (Auto) Lymph # (Auto) Patrick # (Auto) Eos # (Auto) Baso # (Auto) PT 22.6 H INR 2.0 H Sodium 132 L Potassium 4.1 Chloride 100 Carbon Dioxide 27 BUN 26 H Creatinine 1.10 H Estimated GFR 47.4 L BUN/Creatinine Ratio 23.6 H Glucose 115 H Calcium 8.1 L Magnesium 2.1 Total Bilirubin AST ALT Alkaline Phosphatase Total Creatine Kinase Total Protein Albumin Globulin Albumin/Globulin Ratio Lipase 25-OH Vitamin D Total Procalcitonin Urine Color Urine Appearance Urine pH Ur Specific [place] Urine Protein Urine Glucose (UA) Urine Ketones Urine Occult Blood Urine Nitrate Urine Bilirubin Urine Urobilinogen Ur Leukocyte Esterase Urine RBC Urine WBC Ur Squamous Epith Cells Amorphous Sediment Urine Bacteria Ur Culture Indicated? COVID-19 PCR Assessment & Plan Assessment & Plan narrative: This is an 85-year-old female who sustained recurrent falls in the setting of disequilibrium requiring visual cuing for balance who felt rushed into the bathroom secondary to urinary incontinence sustaining a T9 anterior wedging compression fracture with 40% loss of height. 1. Ground level fall, history of recurrent falls secondary to disequilibrium, present on admission, active. -patient with a history of poor balance reporting the need for visual cuing for balance that has been progressively worsening. The patient has an appointment in 2 days with her PCP Justa MAY to address the issue. -patient typically uses walking sticks for balance and support. -continue PT and OT therapies. 2. Pathologic compression fracture of the 9th thoracic vertebra, acute, present on admission, active -prior T4 compression fracture with prior to diagnosis of osteoporosis. -CT scan identifies an acute T9 anterior wedging compression fracture with 40% height loss, no posterior displacement of fragments into the spinal canal. -Dr. Duenas, orthopedics up, is consulted through the emergency department, we appreciate his evaluation and recommendations. Recommended abdominal binder which will be placed likely tomorrow and follow up in 2 weeks for possible discussion of kyphoplasty if indicated at that time. -pain management with Tylenol 975 mg every 8 hours scheduled and oxycodone 5-10 mg every 4 hours as needed for pain. She still complains of significant pain but is able to ambulate with a walker, will see how she does with brace tomorrow. Recommended for home with home health today by PT. May need to add gabapentin for augmentation of pain control. -ordered baclofen 10 mg t.i.d. for muscular spasms -continue PT/OT therapies. 3. Osteoporosis, chronic, present on admission, active -patient with prior diagnosis of osteoporosis dating back to 2016. -ordered calcium carbonate 1000 mg daily. -will continue D3 supplementation at 1000 mg daily. -will obtain add PTH and vitamin D 25 [place] level. 4. Acute hypoxic respiratory failure, present on admission, resolved -upon arrival of EMS the patient was found to be tachypneic at 28 with a room air saturation of 89% without history of lung disease. Oxygenation improves to 92% with 2 L nasal cannula. This was likely secondary to acute pain and shallow inspirations / atelectasis. Now resolved. -CT exam finds no pulmonary contusion or pneumothorax, no airspace disease or opacities. -request respiratory therapy consult to evaluate and treat. -incentive spirometry every 2 hours while awake. -pain management with Tylenol 975 mg every 8 hours scheduled and oxycodone 5-10 mg every 4 hours as needed for pain. 5. Current use of long-term anticoagulation on warfarin, present on admission, stable -the patient presently anticoagulated on warfarin 5 mg daily for history of recurrent DVTs. -INR on admission is 2.1. -continue current home regimen of warfarin 5 mg daily. 6. Hypothyroidism, acquired, chronic, stable -continue home regimen of levothyroxine 112 mcg daily 7. Depression,, chronic, stable -patient denies a acute depressive symptoms not to self-harm or injury. -continue home regimen of bupropion and fluoxetine. VTE prophylaxis: Bilateral SCDs, anticoagulated on warfarin IV fluid: Saline lock Diet: Heart healthy. Code status: FULL CODE, patient's daughter Dea is a surrogate decision maker Dispo: anticipate discharge home tomorrow, remains observation status.
[2020-06-07] MEDS: OXYCODONE IR 5 MG TABLET 10 MG PO ×2 (13:14→18:24)
--- NOTE | 2020-06-07 13:43 | PC.NURSE ---
Patient is awake and lying on her back in bed. Given 10mg of oxycodone with some tylenol and this seems to be effective for patients pain control. She was given 5mg previously x2 and this was not helpful for back pain. Patient is resting after working with physical therapy.
[2020-06-07] MEDS: WARFARIN 5 MG TABLET PO (17:10)
--- NOTE | 2020-06-07 20:11 | PC.NURSE ---
Patient resting in bed this shift. C/o back pain more with movement. Oxycodone 10mg po effective for pain control. O2 sats in the 80s w/ sleep, now on 2L sats low 90s. Patient has been A&O, calm and cooperative.
[2020-06-08 05:00] VITALS: BP 119/67; PULSE 78; RESP 18; TEMP 36.7; O2SAT 93
[2020-06-08] MEDS: OXYCODONE IR 5 MG TABLET 10 MG PO ×3 (05:15→12:25)
[2020-06-08] MEDS: ACETAMINOPHEN 325 MG TABLET 975 MG PO ×2 (05:17→12:24)
[2020-06-08] MEDS: PANTOPRAZOLE 20 MG TABLET PO (05:18)
[2020-06-08] MEDS: LEVOTHYROXINE 112 MCG TABLET PO (05:18)
[2020-06-08] MEDS: BISACODYL 5 MG TABLET 10 MG PO (05:20)
[2020-06-08] MEDS: DOCUSATE 100 MG CAPSULE PO (05:20)
[2020-06-08 07:25] VITALS: BP 102/55; PULSE 72; RESP 16; TEMP 37; O2SAT 89
--- NOTE | 2020-06-08 07:48 | PM.DS.1 ---
History of Present Illness History of Present Illness Date Patient Seen: 06/08/20 Time Patient Seen: 07:48 Chief complaint: Fall Narrative: As per NANNETTE Villasenor: Ms. 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 The patient states she was rushing to the bathroom due to urinary incontinence when she lost her balance falling backward onto the floor sustaining a glancing blow to her head hitting the bed frame. The patient states she has had lengthy history of disequilibrium relying on visual cuing for balance and uses walking sticks for support. The patient states she still had a large episode urinary incontinence which is not typical for her. She denies frequency burning or hematuria. She states she has had prior UTIs and felt none of the symptoms. He does have a history of lumbar fusion at L4-5 but no prior history of incontinence of bowel or bladder and prior back pain with radiculopathy has all but resolved. The patient sustained a fall yesterday however summoned see EMS today due to worsening chest wall and back pain. She denies recent illness with no fevers or chills or known COVID-19 exposures. She denies headaches or dizziness but endorses disequilibrium as noted above. She has no nasal congestion or sore throat. She states she has arthritis in her neck that is unchanged. She complaints of chest pain on deep inspiration in her ribs and her back but denies shortness of breath, cough or wheezing. She reports a remote history of prior rib fractures on the right. She denies epigastric or abdominal pain, no nausea vomiting, diarrhea or constipation. As noted she has had an episode of gross incontinence of urine with a history stress incontinence. She denies leg weakness but relates to prior severe neurologic claudication resolved following her lumbar fusion and now reports slight blunting of sensation bilateral lower extremities. Upon arrival to the ER the patient has temperature 99.7?, heart rate of 82, blood pressure 175/83, respirations of 22 saturating 91% on 2 L nasal cannula. In the ER the patient's activated as a modified trauma related to history of anticoagulation on warfarin. CT of the head is obtained finding no acute intracranial pathology, age-appropriate volume loss and chronic small-vessel ischemic changes. CT of the spine finds C5-6 degenerative changes and remote T4 anterior wedge deformity. CT of the abdomen pelvis finds an acute T9 anterior wedging compression fracture with 40% loss of height, fusion device at L4-5. Twelve lead EKG obtained finds sinus rhythm without ectopy or block without evidence of ischemia or infarct. On laboratory analysis the patient has white count of 13.0 with 90.1% neutrophils, hemoglobin of 12.7 and hematocrit of 37.7 with platelets of 252. PT is 23.9 and INR is 2.1. Electrolytes are within normal range and has a BUN of 21 and creatinine 0.72 with a BUN creatinine ratio of 29.2. Nonfasting glucose is 143. Liver functions reveal total bilirubin of 1.1, AST of 63, ALT of 38 and alkaline phosphatase of 11/03/2002. Total CK is measured at 146, procalcitonin is 6.93. Urinalysis finds specific gravity of 1.010, 1+ protein, trace blood, negative leukocyte esterase or nitrites. Dr. Duenas orthopedics is contacted through the emergency department to consult regarding the T9 compression fracture. In the ER the patient received morphine sulfate 2 mg x 2, Zofran 1 L normal saline and normal saline 125 cc/hour. Coverage screening is pending. The patient is admitted to the medicine service for ground level fall with thoracic spinal compression fracture. Discharge Providers Provider Date of admission: 06/06/20 20:36 Discharge Date: 06/08/20 Primary care physician: Liliana Malone PA-C Consults: 06/06/20 20:52 Consult to Dietitian, Adult Routine Comment: Reason For Exam: Osteoporosis, acute/old compression fractures Consult to Discharge Planning Routine Comment: Consult to Occupational Therapy Evaluate & Treat Comment: Recurrent falls, acute T9 and remote T4 comp fx Physician Instructions: Evaluate and treat Consult to Orthopedic Surgery Stat Comment: Consulting Provider: Corey Duenas Reason for consultation: Acute T9 compression fracture Has provider been notified: Yes Consult to Physical Therapy Evaluate & Treat Comment: Recurrent falls, acute T9 and remote T4 comp fx Physician Instructions: Evaluate and Treat Consult to Respiratory Therapy Evaluate & Treat Comment: Hypoxemia, hypoventilation 2? pain Physician Instructions: Evaluate and treat 06/07/20 07:21 Consult to Physical Therapy Evaluate & Treat Comment: No specific spine precautions, may mobilize to cynthia Physician Instructions: Evaluate and Treat Discharge provider: Polo Taylor DO Summary Hospital Course Discharge Diagnosis: Please see hospital course by problem list noted below Hospital Course: This is an 85-year-old female who sustained recurrent falls in the setting of disequilibrium requiring visual cuing for balance who felt rushed into the bathroom secondary to urinary incontinence sustaining a T9 anterior wedging compression fracture with 40% loss of height. She was admitted under observation status. Patient still with pain but able to ambulate with assitive devices with PT. PT and OT agreeable for discharge home with home health. 1. Ground level fall, history of recurrent falls secondary to disequilibrium, present on admission, active. -patient with a history of poor balance reporting the need for visual cuing for balance that has been progressively worsening. The patient has an appointment in her PCP Just[facility] MAY to address the issue. -patient typically uses walking sticks for balance and support. Slightly worsened per PT due to pain from fractures. -patient was cleared for home with home health by PT and OT. 2. Pathologic compression fracture of the 9th thoracic vertebra, acute, present on admission, active -prior T4 compression fracture with prior to diagnosis of osteoporosis. -CT scan identifies an acute T9 anterior wedging compression fracture with 40% height loss, no posterior displacement of fragments into the spinal canal. -Dr. Duenas, orthopedics up, is consulted through the emergency department, we appreciate his evaluation and recommendations. Recommended abdominal binder which is for comfort only and not necessary. Binder initially sent was too small but have arranged for larger size to be given with home health agency. Follow up in 2 weeks for possible discussion of kyphoplasty if indicated at that time. -pain management with Tylenol 975 mg every 8 hours scheduled and oxycodone 5-10 mg every 4 hours as needed for pain. Recommended for home with home health today by PT. -continue baclofen 10 mg t.i.d. for muscular spasms -discharge home with home health. 3. Osteoporosis, chronic, present on admission, active -patient with prior diagnosis of osteoporosis dating back to 2016. -continue calcium carbonate 1000 mg daily. -will continue D3 supplementation at 1000 mg daily. -PTH pending, follow up as outpatient. 4. Acute hypoxic respiratory failure, present on admission, resolved -upon arrival of EMS the patient was found to be tachypneic at 28 with a room air saturation of 89% without history of lung disease. Oxygenation improves to 92% with 2 L nasal cannula. This was likely secondary to acute pain and shallow inspirations / atelectasis. Now resolved. -CT exam finds no pulmonary contusion or pneumothorax, no airspace disease or opacities. -appreciate evaluation by respiratory therapy. -continued with incentive spirometry every 2 hours while awake. -pain management with Tylenol 975 mg every 8 hours scheduled and oxycodone 5-10 mg every 4 hours as needed for pain as well as baclofen for spams. 5. Current use of long-term anticoagulation on warfarin, present on admission, stable -the patient presently anticoagulated on warfarin 5 mg daily for history of recurrent DVTs. -INR on admission is 2.1. -continue current home regimen of warfarin 5 mg daily. 6. Hypothyroidism, acquired, chronic, stable -continue home regimen of levothyroxine 112 mcg daily 7. Depression,, chronic, stable -patient denies a acute depressive symptoms not to self-harm or injury. -continue home regimen of bupropion and fluoxetine. Exam Vital Signs (past 8 hours): - 06/08/20 05:00 Temperature 98.1 F Pulse Rate 78 Respiratory Rate 18 Blood Pressure 119/67 Pulse Oximetry 93 Oxygen Delivery Method Room Air Oxygen Flow Rate 2 Narrative Exam Narrative: GENERAL APPEARANCE: well developed, adequately nourished, uncomfortable appearing with back spasms. HEENT: Atraumatic, PERRLA, conjunctiva clear, EOMs intact without nystagmus, no sinus tenderness to percussion, no rhinorrhea, mucous membranes are moist and pink without lesions or exudate. NECK/THYROID: Preserved range of motion, nontender to palpation, no step-offs, no JVD, no thyromegaly, trachea midline. LYMPH NODES: no cervical or supraclavicular lymphadenopathy. SKIN: [place], warm and dry, ecchymosis bilateral forearms HEART: regular rate and rhythm, S1-S2, no murmur, no rubs or gallops, brisk capillary refill, no edema LUNGS: clear to auscultation bilaterally, no coarseness crackles or wheezing, no cough present CHEST: Symmetrical movement, no accessory muscle use, shallow tidal volume. ABDOMEN: Soft, no distention, no abdominal tenderness, no guarding or peritoneal signs, no organomegaly, no flank or suprapubic tenderness, active bowel tones. BACK: Mild Pain on palpation thoracic spine. Mild paraspinal muscle tenderness as well. EXTREMITIES: moves all extremities, strength is 5/5 and symmetrical, no deformities or joint effusions, intact dorsi-plantar flexion NEUROLOGIC: AAO x3, no focal neurologic deficits, cranial nerves II-XII grossly intact, slight blunting sensation bilateral feet on sensory exam, hearing grossly normal to speech. PSYCH: Good eye contact, cooperative, appropriate with stable behavior Objective Labs Result Diagrams: 06/07/20 05:45 06/07/20 05:45 Discharge Plan Discharge Plan Patient Disposition: Home Health Service Discharge comment: You were admitted to the hospital after a fall and suffered a vertebral fracture. You are doing well with PT and are stable for discharge home. You should follow up with the orthopedic surgeons in approximately 2 weeks to check on your fracture. You are being prescribed 7 days of pain medications. Please continue to take scheduled tylenol as well which is obtained over the counter. Discharge orders & Medications Prescriptions: New baclofen 10 mg Tablet 10 mg PO TID 7 Days Qty: 21 RF: 0 oxycodone 5 mg Tablet 5 - 10 mg PO Q4HR PRN (Reason: Pain, Severe (7-10)) 7 Days Qty: 40 RF: 0 Continued VITAMIN D (Vitamin D3) 1,000 unit PO QDAY Qty: 0 RF: 0 warfarin [Coumadin] 5 mg tablet 5 mg PO QDAY Qty: 90 RF: 3 (DME) prothrombin time test strips [Coaguchek XS] strip See Dose Instructions .ROUTE .MEDSUPPLY Qty: 6 RF: 12 fluoxetine 20 mg capsule 20 mg PO BID Qty: 180 RF: 4 bupropion HCl [Wellbutrin SR] 100 mg tablet sustained-release 12 hr 100 mg PO Q12H Qty: 60 RF: 0 levothyroxine 112 mcg tablet See Rx Instructions .ROUTE .COMPLEX Qty: 30 RF: 0 (DME) prothrombin time/INR test metr [Coaguchek XS Pro] misc See Dose Instructions .ROUTE .MEDSUPPLY Qty: 1 RF: 0 omeprazole 20 mg capsule,delayed release(DR/EC) 20 mg PO DAILY RF: 0 Disabled Parking Permit packet 1 ea Not Applicable DAILY RF: 0 Follow up/Referrals: Liliana Malone PA-C [Primary Care Provider] - Corey Duenas MD [Physician] - (Follow up 2 weeks for thoracic vertebral compression fracture) Diet/Activity/Treatments Diet: Diet as Tolerated Activity: As tolerated Visit Report/Discharge Packet Visit Report Forms: Patient Portal/API, Stroke Signs & Symptoms Discharge Data Primary Care Provider: Liliana Malone Attending Provider: Polo Sargent Admsarah Date/Time: 06/06/20 20:36
[2020-06-08] MEDS: BACLOFEN 10 MG TABLET PO ×2 (08:46→14:40)
[2020-06-08] MEDS: CALCIUM CARBONATE 500 MG TAB 1000 MG PO (08:46)
[2020-06-08] MEDS: CHOLECALCIFEROL (VITAMIN D3) 1,000 UNIT TABLET 1000 UNIT PO (08:46)
--- NOTE | 2020-06-08 10:40 | CM.DPC ---
Addendum entered by Haritha Machuca R.N. 06/08/20 12:54: Spoke to Angelica at [facility]. She stated that they can see patient tomorrow at her home. Gave Maty, physical therapist, phone number for [facility], phone number, for it is indicated that she will need hospital bed. Reminded her that for hospital reimbursement, it would need to go through her primary care provider. For now, she would be able to rent the bed. P.T. is continue to work with patient prior to her going home. Addendum entered by Haritha Machuca R.N. 06/08/20 11:23: Discharge orders are in on patient. Went ahead and faxed update to [facility], pending signed DC summary for today. Included face to face, face sheet, yesterday's prog note, P.T, and O.T. notes. Indicated on fax that patient is to be discharged today. Called [facility] yesterday regarding referral. Original Note: DCP Cont: Met with patient in her room. Brought in care materials management supervisor, Cristine Monique as well. patient was on the phone with her medical decision maker, Beth. Patient was upset, indicating that she really wants to stay another day, since she [place] [address] [facility] [place], and doesn't have all the equipment she needs. Explained to patient that hospitalist has deemed her medically stable, and if she stays another day, and is discharged, she will get a bill. Beth stated, she wasn't aware of that, but really doesn't want patient to get billed. Let patient know that this case management director will set up home health for her. Beth was inquiring about medical equipment, such as getting patient a hospital bed. Indicated, that for Medicare to cover, can take time, and would need to go through her medical provider. She also mentioned, Maddy Alegria is also worried about her going home as well. Patient will work with P.T. and O.T. today. Dr. Taylor will put in discharge today, and Beth will arrange having someone come to pick her up. Discussed pain management with nursing and Dr. Taylor, as well, as patient indicated, she is getting poor pain control. Nursing has been in frequently offering pain medication. P.T. indicated that she walked with her walker adequately, but will work on stair training. P: DCP to continue to follow. Plan is for discharge today with [facility]. Haritha Machuca RN/Cigarette Packer
[2020-06-08] MEDS: SODIUM CHLORIDE 0.9% FLUSH 10 ML IV (10:41)
[2020-06-08] MEDS: LIDOCAINE PATCH 1 EACH ADH..PATCH TOP (10:41)
--- NOTE | 2020-06-08 11:30 | OT.IP.TRT ---
Addendum entered and electronically signed by Татьяна Peres OT 06/08/20 13:29: Called [facility] to clarify of abdominal binder use- to be wore when up and per comfort. Information of pt to have a follow up appointment with Dr. Coates on 06/14/20 . Original Note: 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 fracture, vertebra(e), initial encounter for fracture (06/06/20) Occupational Therapy Treatment Note M2 OT-IP Current Condition Start: 06/07/20 12:08 Freq: Status: Active Protocol: Document 06/07/20 10:20 [facility] (Rec: 06/07/20 12:26 [facility] [id number]) Occupational Therapy Current Condition Current Condition Evaluation Date 06/07/20 Treatment Diagnosis GLF with acute T9 compression fracture , decreased mobility Diagnosis Onset Date 06/06/20 M3 OT- IP Subjective and Pain Start: 06/07/20 12:08 Freq: Status: Active Protocol: Document 06/08/20 11:30 [facility] (Rec: 06/08/20 13:08 [facility] [id number]) OT- Subjective Occupational Therapy Visit Type Type Treatment Note Visit Start Time 10:30 Visit Stop Time 11:30 Total Visit Minutes 60 Notes Pt's medical advocate, Beth on the phone for part of the session, in addition physical therapy nurse also present for part of the session. Occupational Therapy Visit Comments Patient Comments Pt feels that she is in too much pain. Patient/Caregiver Goals To go home. OT Pain Assessment Pain When Pain Assessed During Mobility Pain Present Pain Present Pain Reported Location Back Intensity 10 Scale Used Numeric (0 - 10) M4 OT- IP ADL's Start: 06/07/20 12:08 Freq: Status: Active Protocol: Document 06/08/20 11:30 [facility] (Rec: 06/08/20 13:08 [facility] [id number]) OT ADL-Grooming General Evaluation Grooming Ability Minimal Assistance Areas Needing Assistance Retrieving/Set-up of Grooming Items,Combing/Brushing Hair Comments OT Grooming Comments Assist to comb the back of the hair while seated. OT ADL-Oral Care General Eval Oral Care Ability Independent OT ADL-Dressing General Eval Upper Body Dressing Ability Minimal Assistance Lower Body Dressing Ability Minimal Assistance Areas Needing Assistance Underpants/Brief Comments OT Dressing Comments Pt will benefit LB dressing equipment at home otherwise assist. LB dressing equipment issued to pt. Pt needing assist to help get brace behind her and then able to fasten on her own. It was determined by the pt that the center line was not comfortable as suggested by the directions, pt wanting the center line to be offset instead. OT ADL-Toileting General Evaluation Toileting Ability Minimal Assistance Comments OT Toileting Comments Jeferson to help get pad in place and CGA while standing to pull up her brief and also use of grab bar. Pt would benefit from BSC at home and Beth in the process on obtaining one. Suggested would be best to use disposable briefs instead for ease. OT ADL-Bathing Comments OT Bathing Comments Not performed. Pt's , medical advisory states to obtain a tub bench . M5 OT- IP IADL's Start: 06/07/20 12:08 Freq: Status: Active Protocol: Document 06/07/20 10:20 [facility] (Rec: 06/07/20 12:26 [facility] [id number]) OT-Instrumental Activities of Daily Living Medication Management Medication Management No Deficits Identified Money Management Money Management No Deficits Identified Meal Preparation Meal Preparation Comments At this time, due to pt's back pain, pt will need to have assist at home for meal prep, chores, and ADl needs. M6 OT- IP Functional Cognition Start: 06/07/20 12:08 Freq: Status: Active Protocol: Document 06/08/20 11:30 [facility] (Rec: 06/08/20 13:08 [facility] [id number]) Cognitive Factors Limiting Selfcare Function Cognitive Ability Level of Alertness Alert Patient Orientation Name,Age,Birthday,Month,Date, Year,Day of Week,Place, Situation Attention Span Ability Capable of Focused Attention, Capable of Sustained Attention Ability to Follow Commands Able to Follow One Step Commands Cognitive Comments Cognitive Assessment Comments Pt still a little groggy and needing reminders for completeness for safety with FWW use. M7 OT- IP Mobility and Balance Start: 06/07/20 12:08 Freq: Status: Active Protocol: Document 06/08/20 11:30 [facility] (Rec: 06/08/20 13:08 [facility] [id number]) OT- Bed Mobility Assessment Rolling Type of Rolling Roll to Left Level of Assistance Standby Assistance Supine to Sit Supine to Sit Assist Standby Assistance OT-Transfer Assessment Sit to and From Stand Sit to and from Stand Standby Assistance,Contact Guard Assistance Transfers Transfer Ability Standby Assistance,Contact Guard Assistance Technique Transfer Destination Bed,Chair,Toilet Transfer Technique Stand Step Pivot Devices Transfer Assistive Devices Gait Belt,Front Wheeled Walker Comments Mobility Comments Pt looking to stay on the main level and wanting to have a hospital bed. Pt mainly just needing a bed rail at this time . Beth feels that it would be best to have a hospital bed so better able to access the main level areas. OT- Gait Assessment Comments Gait Ability Comments CGA to SBA with FWW. OT- Balance Assessment Sitting Balance and Reactions Static Sitting Balance Ability Normal Dynamic Sitting Balance Ability Good M8 OT- IP Objective Assessments Start: 06/07/20 12:08 Freq: Status: Active Protocol: Document 06/07/20 10:20 [facility] (Rec: 06/07/20 12:26 [facility] [id number]) OT Strength Comments Strength Comments Not tested due to compression fracture. M9 OT- IP Assessment and Plan Start: 06/07/20 12:08 Freq: Status: Active Protocol: Document 06/08/20 11:30 [facility] (Rec: 06/08/20 13:08 [facility] [id number]) OT Summary Assessment and Plan Potential Rehabilitation Potential Good Analytic Complexity at Evaluation Low Summary OT Impairments Pain,Balance,Functional Mobility,Grooming,Dressing, Toileting,Bathing,Toilet Transfers,Shower Transfers, Activity Tolerance Progress Towards Goals Slow Progress due to Pain,Slow Progress due to Cognition Assessment Summary Pt doing better today with ADl and mobility needs. However due to pain and grogginess for medications will benefit from asisst at home, especially to assist to billy abdominal binder, dressing, toileting , and bathing needs. Goals Self-Feeding Goal Independent Grooming Goal Independent Dressing Goal Independent Toileting Goal Independent Bathing Goal Independent Toilet Transfer Goal Independent Shower Transfer Goal Independent Days to Meet Goals 5 Frequency of Treatment Frequency Of Treatment Once a Day Treatment Plan OT Treatment Plan ADL Training,Functional Cognition Training,Functional Mobility,Patient/Family Education,Discharge Planning Other Treatment Recommendations and Next shower if still here Treatment Focus Discharge Recommendations OT Discharge Recommendations Home with Assistance,Home Health Home Equipment Needs FWW, tub bench, BSC Transportation Needs at Discharge Private Vehicle
--- NOTE | 2020-06-08 12:20 | PT.IPTN ---
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 fracture, vertebra(e), initial encounter for fracture (06/06/20) Physical Therapy Treatment Note M2 PT-IP Current Condition Start: 06/07/20 08:27 Freq: NEEDED Status: Active Protocol: Document 06/07/20 11:00 [facility] (Rec: 06/07/20 11:40 [facility] [id number]) Physical Therapy Current Condition Current Condition Evaluation Date 06/07/20 Treatment Diagnosis T9 compression fx s/p GLF, difficulty in walking, decrease in balance Onset Date 06/06/20 Precautions Other Precautions Per ortho note, For treatment of the fracture I would recommend an abdominal binder. This will be easier for her to put on and off than a formal brace. She should mobilize with physical therapy . No spine precautions are necessary. Discharge disposition will need evaluation with discharge planning and is dependent upon her progress mobilizing with physical therapy. She should follow up at the orthopedic office in approximately 2 weeks for repeat x-rays and potential kyphoplasty if clinically indicated at that time. Weight Bearing Status Weight Bearing Status Full Weight Bearing M3 PT-IP Subjective Start: 06/07/20 08:27 Freq: NEEDED Status: Active Protocol: Document 06/08/20 11:03 [facility] (Rec: 06/08/20 15:07 [facility] [id number]) Subjective Physical Therapy Visit Type Type Treatment Note Visit Start Time 11:03 Visit Stop Time 12:20 Total Visit Minutes 77 Notes OT in room finishing up tx, provided educational feedback for assistance patient requires with mobility, dressing, self care and abdominal binder and recommending 24/7 for safety while on phone with friend coordinating DME needed for home. ATTENDANCE SECRETARY student Ashley assisted with mobility and education when needed. Physical Therapy Visit Comments Patient Comments I am having alot of pain in my back 06/12. Patient Goals To return home with assistance from friends/neighbors until daugher arrives on Friday. Therapy Pain Assessment Pain When Pain Assessed During Mobility Pain Present Pain Present Pain Reported Location Back Intensity 8 Scale Used Numeric (0 - 10) Description Acute Pain Management Techniques Re-positioning,Timing of Activity with Medications M4 PT-IP Mobility and Gait Start: 06/07/20 08:27 Freq: NEEDED Status: Active Protocol: Document 06/08/20 11:03 SP (Rec: 06/08/20 15:07 SP [id number]) PT-Bed Mobility Assessment Sit to Supine Sit to Supine Contact Guard Assistance PT-Transfer Assessment Sit to and From Stand Sit to and from Stand Contact Guard Assistance, Minimal Assistance,Use of Upper Extremities Equipment Transfer Assistive Device Gait Belt,Front Wheeled Walker Transfers Transfer Destination Bed,Wheelchair Transfer Technique Stand Step Pivot Transfer Ability Level of Assist Contact Guard Assistance, Minimal Assistance,Use of Upper Extremities Comments Mobility Comments Pt was seated in chair finishing up with OT and reported abdominal binder donned with seam off to R of spine for comfort, not over spine as directions identified due to not tolerated. Pt demonstrated crossing R LE over L for more comfortable positioning to help relieve R leg pain ASIS to anterior knee . Completed sit to stand from chair arm rests using heavy BUE Min A to come to standing using FWW, instructed patient in wt shifting pre gait for stability of BLE awareness. Pt ambulated around end of bed when personal phone rang, friend coordinating DME, wanting to take the call. So patient step pivoted wtih cuing for FWW and body positioning awareness then reaching back for safe slow descent at end of bed. Pt sat at end of bed for 20 min with UE support on FWW in front of her with intermittent cuing for upright posture during her conversation with friend. ATTENDANCE SECRETARY /SPTA/OT provided feedback to patient and friend of progress and assistance needed druing mobility, recommending 24/7 assistance at home for safety for coordination and therapy saw physician documented patient is medically stable to DC. Pt was very tired after phone conversation at bedside but willing to try stair assessment for assimulation to enter home. Sit > stand at EOB BUE with cuing, ambulated 5 ft to w/c in hallway using fWW CGA and cuing for body and FWW backing up to w/c, reaching back and slow descent BUE with CGA-Min. ATTENDANCE SECRETARY pushed patient down to stairs with patient able to hold BLE up off floor (no leg rests available) with no report of increased pain. Sit to stand CGA from w/c, ambulated 3 ft to stairs and ascend/descend 3 stairs facing R HR CGA step to gait to assimulate home stairs to 2nd level but patient completed 3 of the 19 stairs to get to 2nd floor bedroom but states doesn't have to can sleep in spare bedroom on main floor. Pt requried seated rest little dizzy and nauseous BP taken after 3 min (soonest could access a portable BP cuff) 138 /65. After 5 min rest agreed to assess ascend/descend 3 stairs with no HR to assimulate home enterance provided B SPC for self downward pressure assist: ascend/descend 3 stairs usign SPC with BUE for self downward pressure required with Mod A of 2 person with assist for steading SPC on both sides and cuing for sequencing BLE, SPC . Jailene of 1 person required for step pivoting while using B SPC at top platform. Pt required need of L HR and SPC with RUE complete to complete descend the bottom 3rd step due to decreased strength and activity tolerance. Pt step pivoted at bottom of stairs using FWW to sit into w/c with same assist and cuing for safety sit in w/c CGA- Min, same light headed and nausea BP 136/74. Pt was wheeled to room, sit > stand from w/c, pivot using FWW CGA to L side of bed (side gets on at home), sitting > L sidelying > log roll on to back CGA with cuing required for no twisting back safety, HOB flat with no bed rails. Pt was reclined in bed with call light, alarm armed and all needs in reach. ATTENDANCE SECRETARY discussed amount of help requiring with mobility and suggesting 24/7 and patient and friend stated will be calling to set up EMS to help her get into her house knowing alot of help to ascend 3 stairs of 2 persons during treatment unsure if friends will feel safe to help as therapists did. Pt and her friend requested an order for a hospital bed to rent for home to assistance with mobility, ATTENDANCE SECRETARY stated that only needs little hep of rail and Min A during OT tx but still wanted to rent a bed. ATTENDANCE SECRETARY spoke with care mgt team and was provided a contact fro [facility] for rental of which patient/friend would coordinate. Pt and friend also wanted to know how much would it be to stay for another night if insurance wouldn't over to give more time to get DME and better pain control in LB and R leg to less than 8/10 during tx. Provided friend caremgt extension to communicate further questions. ATTENDANCE SECRETARY recommending patient is ok to go home with 24/7 assist when medicallly stable. Gait Assessment Gait Gait Assistance Required: Contact Guard Assist Distance (Feet) 10 Able to Maintain Weight Bearing Status Yes During Gait Assistive Devices Assistive Device Gait Belt,Front Wheeled Walker Orthotic/Prosthetic Devices or Brace: No Gait Deviations General Gait Pattern Within Normal Limits,Antalgic, Decreased Stride Length, Decreased Feet Clearance, Flexed Trunk Factors Limiting Gait Function Factors Limiting Gait Function Decreased Activity Tolerance, Decreased Strength,Limited Range of Motion,Pain,Poor Balance,Respiratory Distress Comments Gait Comments see mobility comments, decreased activity tolerance in gait 10 ft at most in distance using FWW CGA. Stair Climbing Assessment Evaluation Level of Assist On Stairs Contact Guard Assistance,1 Person Assistance Devices Stair Climbing Assistive Devices Right Railing Technique/Endurance Stair Climbing Direction Ascend and Descend Stair Climbing Technique Step to Step Number of Steps Climbed 3 Stair Climbing Set # Repetitions (reps) 1 Comments Stair Climbing Comments Pt completed 01/19 stairs to assimualte stairs to 2nd level but unable to complete all required. Required Mod A of 2 person to ascend 3 stairs using B SPC and Max cuing for sequencing to complete enterance to house, report of dizziness and nausea at top. Completed descend 2 stairs B SPC and L HR and SPC on R tocomplet 3rd step. Decreased strength and activity tolerance during stair mgt. Patient and friend stated will call EMS to help her get up 3 stairs via w/c for safety. PT-Balance Assessment Sitting Balance and Reactions Static Sitting Balance Ability Good Dynamic Sitting Balance Ability Fair Standing Balance and Reactions Static Standing Balance Ability Good Dynamic Standing Balance Ability Fair Device Used FWW M5 PT-IP Objective Assessments Start: 06/07/20 08:27 Freq: NEEDED Status: Active Protocol: Document 06/07/20 11:00 (Rec: 06/07/20 11:40 [id number]) Orientation Orientation/Cognition Level of Alertness Alert Orientation Name,Age,Birthday,Month,Date, Year,Day of Week,Place, Situation Language Function Ability No Deficits Noted Safety Awareness Understands Safety Issues Memory Description No Deficits Noted Gross Range of Motion Upper Extremity ROM Assessment Within Functional Limits Lower Extremity ROM Assessment Within Functional Limits Strength Upper Extremity Strength Assessment Within Functional Limits Lower Extremity Strength Assessment Within Functional Limits Coordination Assessment Gross Coordination Gross Coordination WNL Sensation Assessment Sensation Gross Sensation WNL Muscle Tone Muscle Tone WNL Yes M6 PT-IP Treatment Start: 06/07/20 08:27 Freq: NEEDED Status: Active Protocol: Document 06/08/20 11:03 SP (Rec: 06/08/20 15:07 SP [id number]) Physical Therapy Treatment Education Education Provided Precautions,Weight Bearing Status,Safety M7 PT-IP Assessment and Plan Start: 06/07/20 08:27 Freq: NEEDED Status: Active Protocol: Document 06/08/20 11:03 SP (Rec: 06/08/20 15:07 SP [id number]) PT Summary Assessment and Plan Potential Rehabilitation Potential Excellent Status of Condition at Evaluation Evolving Summary Impairments Pain,ROM,Strength,Balance,Bed Mobility,Transfers,Gait, Activity Tolerance Assessment Summary aOT instructed use of abdominal binder. No spine precautions are necessary. Pt will have f/u in 2 weeks for repeat x-rays. Pt is not her baseline, requiring CGA- Min for bed mobility, sit to stand , transfers using FWW, Mod A of 2 person with B SPC on 3 stairs to assimualte enterance to home, CGA 01/19 stairs to assimulate mgt to 2nd level of home. Pt plans to rent a hospital bed for home use, getting EMS to help her into house, friends providing 24/7 assist untili her daughter arrives on Friday to care for her. She does have hx of falls d/t declining balance. Pt requries Mod cuing for safety hand andFWW positioning and pain increase to 8/10 for mobility and appeared to be fatigue with trunk bending movement and ambulation with FWW. She overall needed 1PA. Pt's pain and decrease strength and activity tolerance is her primary limitation at this point , home health is set up and consistent home assistance from her neighbor / daughter to address her mobility needs. Pt is ok to return home with 24/7 assist when medically stable. Goals Bed Mobility Goal Standby Assistance Transfer Goal Standby Assistance,Front Wheeled Walker Gait Goal Standby Assistance,Front Wheel Walker Gait Distance 500 Other Goals 3 SHAGGY with cane/ FWW with SBA Days to Meet Goals 3 Frequency of Treatment Frequency Of Treatment Once a Day Treatment Plan Physical Therapy Treatment Plan Bed Mobility Training,Transfer Training,Gait Training, Therapeutic Exercise,Balance Retraining,Discharge Planning, Hot or Cold Pack Other Recommendations and Next Treatment review log roll Focus abdominal binder fitting, mobility as cynthia, 3 step stair mgt no HR Recommendations To Nursing Amount of Assist Needed 1 Person Assist Discharge Recommendations PT Discharge Recommendations Home with 24/7 Assist,Home Health Equipment Needed for Home Before BSC, FWW, shower chair for Discharge downstair Transportation Needs at Discharge Private Vehicle
[2020-06-08 13:36] LABS: Parathyroid Hormone, Intact 122 pg/mL (15-65)
[2020-06-08 13:40] VITALS: BP 120/58; PULSE 74; RESP 16; TEMP 37.2; O2SAT 89
--- NOTE | 2020-06-08 13:48 | CM.DPC ---
Addendum entered by Haritha Machuca R.N. 06/08/20 15:06: Updated nurse, Leanna, regarding plan, and she will initiate discharge on her end. Addendum entered by Haritha Machuca R.N. 06/08/20 14:58: Spoke to Beth, explained that patient does need to be discharged today. Confirmed correct phone number, which is: [phone]. She continued to be concerned about her being comfortable, and pain control, since [place]. She wanted to make sure that she had pain medications on board, and to see if they were ordered at [facility]. Asked Dr. Taylor, and confirmed that prescriptions were sent over to [facility], for Oxycodone, and Baclofen. Encouraged Beth to call pharmacy to confirm that they received. She will board [facility] and call when she is getting close to pick patient up. Will update charge nurse for pm, gave her nurses station contact number to call. Original Note: DCP Cont: Patient's medical decision maker, Beth, called this case manage back. Stated, how much would it cost for her to stay another night. Asked her what would change between today and leaving tomorrow. She mentioned, it might be easier to get everything set up for her. Asked her about staying in a motel here in [place], and she stated, we have concerns about COVID. Asked her about paying privately for skilled, and stated, they have concerns about COVID there as well. Let her know that there is risk here, and other places of her [place] the virus. Collaborated with Cristine Monique over the phone. She stated that there is no way to know how much that another stay will entail, depending on medications, cost of room, etc. Also, reemphasized that patient needs to discharge today, or can contact administration. Called Beth back and left her another message, that there is no way to know the cost, and that she would be billed. P: Patient is supposed to discharge today, have a message out to her medical decision maker, Beth. Her phone number is: [phone]. Haritha Machuca RN/Shellacker
[2020-06-08] MEDS: OXYCODONE IR 5 MG TABLET PO (16:36)
--- NOTE | 2020-06-09 13:31 | CM.DPC ---
DCP cont: Faxed discharge summary to [facility] at fax # [phone]. Fax confirmation scanned in. Haylee Adams, Care Wetlands Conservation Laborer
== END 2020-06-08 17:19 | disposition home health service (06) ==
LOC: ED 20:01 → AC 20:37
PROVIDERS: Emergency Medicine; Admitting Provider Nurse Practitioner Adult Health; Emergency Provider Nurse Practitioner Family; PCP Physician Assistant; Referring Provider Physician Assistant; Visit Provider Nurse Practitioner Adult Health
DX: M80.08XA Age-related osteoporosis with current pathological fracture, vertebra(e), initial encounter for fracture (principal); M54.9 Dorsalgia, unspecified; W01.190A Fall on same level from slipping, tripping and stumbling with subsequent striking against furniture, initial encounter; E03.9 Hypothyroidism, unspecified; E78.5 Hyperlipidemia, unspecified; Z79.01 Long term (current) use of anticoagulants; R32 Unspecified urinary incontinence; Z91.81 History of falling; J96.01 Acute respiratory failure with hypoxia; F32.9 Major depressive disorder, single episode, unspecified; Z11.59 Encounter for screening for other viral diseases
CPT/HCPCS: 36415; 70450; 71260; 72125; 74177; 80048; 80053; 81001; 82306; 82310; 82550; 83690; 83735; 83970; 84145; 85025; 85610; 87635; 93005; 94762; 96361; 96374; 96375; 96376; 97116; 97161; 97165; 97530; 97535; 99284; 99285; G0378; J2270; J2405; Q9967

== ENCOUNTER → 2020-06-14 12:10 | Outpatient (CLI) | payer MEDICARE, OTHER, SELFPAY ==
[2020-06-06 21:45] VITALS: BMI 22.6
[2020-06-14 14:31] LABS: Add Manual Diff / Slide Review NO; Basophils Absolute Auto 0 /uL (0-100); Eosinophils Absolute Auto 200 /uL (0-450); Eosinophils Percent Auto 3.6 % (2-4); Hematocrit 36.5 % (36-46); Hemoglobin 12.4 g/dL (12.0-16.0); Lymphocytes Absolute Auto 600 /uL (1100-4500); Lymphocytes Percent Auto 12.9 % (25-40); Mean Corpuscular HGB Conc 33.8 % (30-36); Mean Corpuscular Hemoglobin 30.8 PG (26-34); Mean Corpuscular Volume 91.1 fL (80-100); Monocytes Absolute Auto 700 /uL (0-900); Monocytes Percent Auto 15.8 % (3-14); Neutrophils Absolute Auto 3000 /uL (1500-7000); Neutrophils Percent Auto 66.7 % (50-75); Platelet Count 317 X10^3/uL (150-400); Red Blood Cell Count 4.01 X10^6/uL (4.0-5.2); Red Cell Distribution Width 14.9 % (11.6-14.8); White Blood Cell Count 4.5 X10^3/uL (4.5-11.0)
[2020-06-14 15:04] LABS: Alanine Aminotransferase 32 IU/L (<35); Albumin 3.7 g/dL (3.5-5.0); Albumin Globulin Ratio 1.1 (1.0-2.8); Alkaline Phosphatase 111 U/L (38-126); Aspartate Aminotransferase 33 IU/L (14-36); BUN Creatinine Ratio 26.8 (6-22); Bilirubin Total 0.4 mg/dL (0.2-1.3); Blood Urea Nitrogen 22 mg/dL (7-17); Carbon Dioxide 31 mmol/L (22-32); Chloride 98 mmol/L (98-107); Estimated Glomerular Filt Rate > 60.0 mL/min (>60); Globulin 3.4 g/dL (1.7-4.1); Glucose 91 mg/dL (80-110); HEMOLYSIS < 15 (0-50); Potassium 4.4 mmol/L (3.4-5.1); Sodium 134 mmol/L (137-145); Total Protein 7.1 g/dL (6.3-8.2)
== END ==
PROVIDERS: PCP Physician Assistant; Referring Provider Physician Assistant; Visit Provider Physician Assistant
DX: E03.9 Hypothyroidism, unspecified (principal)
CPT/HCPCS: 36415; 80053; 85025

== ENCOUNTER → 2020-07-17 17:54 | Outpatient (CLI) | payer MEDICARE, OTHER, SELFPAY ==
[2020-06-06 21:45] VITALS: BMI 22.6
--- NOTE | 2020-07-17 | DI.MRI.S_ITS ---
PROCEDURE: MR LUMBAR SPINE WO CON INDICATIONS: Lumbago with sciatica, unspecified side TECHNIQUE: Noncontrast sagittal T1 spin echo and T2 fast echo, sagittal STIR, axial T1 and T2 fast spin echo through the lumbar spine. In cases with scoliosis, additional coronal T2 fast spin echo may be performed. COMPARISON: [facility], CR, SPINE LUMB 2 OR 3VW, 01/03/2017, 15:18. [facility], , L-SPINE WITHOUT CONTRAST, 01/10/2017, 10:04. FINDINGS: Image quality: Excellent. Alignment and Curvature: 5 lumbar type vertebral bodies are present by plain film. There is mild, grade 1 retrolisthesis of L2 on L3. Mild grade 1 anterolisthesis of L4 on L5. Bone Marrow: Marrow is of normal overall signal. No acute vertebral body compression fractures. Mild reactive signal within the endplates adjacent to the T11-T12, T12-L1, L1-L2, and L4-L5 intervertebral discs. Posterior fusion at L5-S1 has been performed, new since the prior examination. Spinal Cord: Conus medullaris terminates at the L1-L2 disc space level. Visualized cord demonstrates normal signal and size. Paraspinous Soft Tissues: No paravertebral masses. L1-L2: Mild disc desiccation and diffuse disc bulge. Mild facet and ligamentum flavum hypertrophy. Mild canal stenosis. Mild bilateral foraminal stenosis. No change. L2-L3: Mild disc desiccation and diffuse disc bulge. Mild facet and ligamentum flavum hypertrophy. Mild canal stenosis. Mild bilateral foraminal stenosis. No change. L3-L4: Mild disc desiccation and diffuse disc bulge. Mild facet and ligamentum flavum hypertrophy. Mild epidural lipomatosis. Mild canal stenosis. Mild bilateral foraminal stenosis. No change. L4-L5: Mild disc height loss. Moderate disc desiccation. Mild diffuse disc bulge. Moderate bilateral facet hypertrophy. Decreased, mild canal stenosis. Mild bilateral foraminal stenosis is unchanged. L5-S1: Mild disc desiccation and diffuse disc bulge. Moderate bilateral facet hypertrophy. Moderate canal stenosis. Moderate subarticular foraminal stenosis bilaterally. No change. IMPRESSION: 1. Postsurgical sequelae at L4-L5, with resolution of previous seen canal stenosis. 2. Multilevel degenerative disc and facet disease, as well as ligamentum flavum hypertrophy and epidural lipomatosis. 3. Mild multilevel canal stenosis. Multilevel foraminal stenoses, worst at L5-S1 bilaterally where there are moderate foraminal stenoses. Dictated by: Priscilla Andres M.D. on 07/18/2020 at 10:08 Approved by: Priscilla Andres M.D. on 07/18/2020 at 10:12
== END ==
PROVIDERS: PCP Physician Assistant; Referring Provider Orthopaedic Surgery; Visit Provider Orthopaedic Surgery
DX: M51.16 Intervertebral disc disorders with radiculopathy, lumbar region (principal); M51.17 Intervertebral disc disorders with radiculopathy, lumbosacral region; M48.061 Spinal stenosis, lumbar region without neurogenic claudication; M48.07 Spinal stenosis, lumbosacral region; E88.2 Lipomatosis, not elsewhere classified
CPT/HCPCS: 72148

== ENCOUNTER → 2020-09-13 19:36 | Outpatient (ROUT) | payer MEDICARE, OTHER, SELFPAY ==
[2020-06-06 21:45] VITALS: BMI 22.6
[2020-09-13 19:45] LABS: Hematocrit 30.7 % (36-46); Hemoglobin 10.3 g/dL (12.0-16.0); Mean Corpuscular HGB Conc 33.5 % (30-36); Mean Corpuscular Hemoglobin 30.9 PG (26-34); Mean Corpuscular Volume 92.1 fL (80-100); Platelet Count 269 X10^3/uL (150-400); Red Blood Cell Count 3.34 X10^6/uL (4.0-5.2); Red Cell Distribution Width 16.6 % (11.6-14.8); White Blood Cell Count 4.1 X10^3/uL (4.5-11.0)
[2020-09-13 19:53] LABS: Alanine Aminotransferase 22 IU/L (<35); Albumin 3.8 g/dL (3.5-5.0); Albumin Globulin Ratio 1.2 (1.0-2.8); Alkaline Phosphatase 86 U/L (38-126); Aspartate Aminotransferase 26 IU/L (14-36); BUN Creatinine Ratio 19.8 (6-22); Bilirubin Total 0.5 mg/dL (0.2-1.3); Blood Urea Nitrogen 21 mg/dL (7-17); Calcium 9.3 mg/dL (8.4-10.2); Carbon Dioxide 32 mmol/L (22-32); Chloride 99 mmol/L (98-107); Estimated Glomerular Filt Rate 49.5 mL/min (>60); Globulin 3.2 g/dL (1.7-4.1); Glucose 97 mg/dL (80-110); HEMOLYSIS < 15 (0-50); Potassium 4.7 mmol/L (3.4-5.1); Sodium 135 mmol/L (137-145)
[2020-09-13 20:23] LABS: TSH w/ Reflex to FT4 2.95 uIU/mL (0.47-4.68)
[2020-09-14 14:40] LABS: HEMOLYSIS < 15 (0-50); Iron 46 ug/dL (37-170)
[2020-09-14 14:50] LABS: Percent Iron Saturation 13 % (15-50); Total Iron Binding Capacity 360 ug/dL (265-497); Transferrin 256 mg/dL (206-381)
[2020-09-14 15:21] LABS: Ferritin 57 ng/mL (11-264)
[2020-09-14 15:51] LABS: Folate 6.6 ng/mL (2.76-20.0)
== END ==
PROVIDERS: PCP Physician Assistant; Visit Provider Student in an Organized Health Care Education/Training Program
DX: R53.83 Other fatigue (principal); D64.9 Anemia, unspecified
CPT/HCPCS: 80053; 82728; 82746; 83540; 83550; 84443; 85027

== ENCOUNTER → 2021-07-31 14:05 | Outpatient (CLI) | payer MEDICARE, OTHER, SELFPAY ==
[2020-06-06 21:45] VITALS: BMI 22.6
--- NOTE | 2021-07-31 | DI.RAD.S_ITS ---
PROCEDURE: XR DEXA AXIAL SKELETON INDICATIONS: SCREENING COMPARISON: [facility], CR, XR DEXA AXIAL SKELETON, 07/26/2019, 15:35. FINDINGS: This blank DEXA report has been sent in error by the PACS system. The correct and complete report will be forthcoming in 1-2 days. Thank you for your patience and understanding. Dictated by: Germania Pardo MD, PhD on 07/31/2021 at 15:10 Approved by: Germania Pardo MD, PhD on 07/31/2021 at 15:10
== END ==
PROVIDERS: PCP Physician Assistant; Referring Provider Physician Assistant; Visit Provider Physician Assistant
DX: M81.0 Age-related osteoporosis without current pathological fracture (principal); Z13.820 Encounter for screening for osteoporosis; Z78.0 Asymptomatic menopausal state; Z82.62 Family history of osteoporosis
CPT/HCPCS: 77080

== ENCOUNTER → 2022-06-27 14:23 | Outpatient (CLI) | payer MEDICARE, OTHER, SELFPAY ==
[2020-06-06 21:45] VITALS: BMI 22.6
[2022-06-27 16:04] LABS: BUN Creatinine Ratio 22.6 (6-22); Blood Urea Nitrogen 21 mg/dL (7-17); Calcium 8.6 mg/dL (8.4-10.2); Carbon Dioxide 27 mmol/L (22-32); Chloride 102 mmol/L (98-107); Estimated Glomerular Filt Rate > 60 mL/min (>60); Glucose 92 mg/dL (80-110); HEMOLYSIS < 15 (0-50); Potassium 4.5 mmol/L (3.4-5.1); Sodium 136 mmol/L (137-145)
== END ==
PROVIDERS: PCP Internal Medicine; Referring Provider Internal Medicine; Visit Provider Internal Medicine
DX: N28.9 Disorder of kidney and ureter, unspecified (principal)
CPT/HCPCS: 36415; 80048

== ENCOUNTER → 2023-07-25 12:13 | Outpatient (CLI) | payer MEDICARE, OTHER, SELFPAY ==
[2020-06-06 21:45] VITALS: BMI 22.6
--- NOTE | 2023-07-25 | DI.RAD.S_ITS ---
Bone Density Report Name: PAULO SANTOS Age: 88 Sex: Female Ethnicity: White Date of : 1935 Indication: postmenopausal osteoporosis; monitoring treatment; prior fracture; Referring Provider: ELLEN LONG Study: Bone densitometry was performed. Exam Date: July 25, 2023 Accession number: [id number] Bone Density: Region BMD T-score Z-score Classification AP Spine(L1, L2, L3) 0.829 -1.7 1.1 Osteopenia Femoral Neck (Left) 0.609 -2.2 0.4 Osteopenia Total Hip (Left) 0.668 -2.2 0.1 Osteopenia Femoral Neck (Right) 0.560 -2.6 -0.1 Osteoporosis Total Hip (Right) 0.659 -2.3 0.0 Osteopenia Total Hip Mean 0.664 -2.3 0.1 Osteopenia World Health Organization criteria for BMD impression classify patients as: Normal (T-score at or above -1.0), Osteopenia (T-score between -1.0 and -2.5), or Osteoporosis (T-score at or below -2.5). 10-year Fracture Risk: FRAX not reported because: Some T-score for Spine Total or Hip Total or Femoral Neck at or below -2.5 Prior hip or vertebral fracture Treated for osteoporosis Previous Exams: -- Region Exam Age BMD T-score BMD Change BMD Change Date g/cm2 vs Baseline vs Previous -- AP Spine (L1-L3) 07/25/2023 88 0.829 -1.7 0.084 (11.3%)# 0.084 (11.3%)# 07/31/2021 86 0.744 -2.5 Total Hip(Left) 07/25/2023 88 0.668 -2.2 -0.002 (-0.4%)# -0.002 (-0.4%)# 07/31/2021 86 0.671 -2.2 Total Hip(Right) 07/25/2023 88 0.659 -2.3 0.036 (5.9%)# 0.036 (5.9%)# 07/31/2021 86 0.623 -2.6 -- *Denotes significance at 95% confidence level, LSC for AP Spine = 0.022 g/cm2, LSC for Total Hip = 0.027 g/cm2 # Denotes dissimilar scan types or analysis methods Impression: The patient has established osteoporosis, based on the Right Femoral Neck T-score and the existence of a prior fracture. The patient has risk factors, including: previous fracture. No significant bone loss was observed. Discussion: PATIENT UNDER TREATMENT WITH NO SIGNIFICANT BMD LOSS SINCE LAST EXAM. In an untreated patient, BMD typically declines with age. A lack of decline or gain is usually a sign that treatment is efficacious and fracture risk is reduced. It is important to ask patients whether they are taking their medications and to encourage continued and appropriate compliance with their osteoporosis therapies to reduce fracture risk. It is also important to review their risk factors and encourage appropriate calcium and vitamin D intakes, exercise, fall prevention and other lifestyle measures. Follow-Up: Consider a repeat BMD and Vertebral Fracture Assessment (VFA) exam in 2 years or sooner if medically necessary, to reassess this patient's status. Reported by: MALIK LOMAS M.D. on 07/25/2023 12:52:00 PM.
== END ==
PROVIDERS: PCP Internal Medicine; Referring Provider Internal Medicine Endocrinology, Diabetes & Metabolism; Visit Provider Internal Medicine Endocrinology, Diabetes & Metabolism
DX: M81.0 Age-related osteoporosis without current pathological fracture (principal); E05.90 Thyrotoxicosis, unspecified without thyrotoxic crisis or storm; Z79.83 Long term (current) use of bisphosphonates
CPT/HCPCS: 77080

== ENCOUNTER → 2025-06-08 14:38 | Outpatient (CLI) | payer MEDICARE, OTHER, SELFPAY ==
[2020-06-06 21:45] VITALS: BMI 22.6
--- NOTE | 2025-06-08 | DI.RAD.S_ITS ---
PROCEDURE: XR CHEST 2V INDICATIONS: Shortness of breath TECHNIQUE: 2 views of the chest were acquired. COMPARISON: None. FINDINGS: Heart, mediastinum and pulmonary vascular: Heart is mildly enlarged. Moderate hiatal hernia noted.. Pulmonary vascular is normal. Lungs: Possible developing right lower lobe infiltrate Pleural spaces: Both posterior costophrenic angles are blunted likely by small effusions Bones and soft tissues: Moderate T5, moderate T8 and severe T10 compression fracture IMPRESSION: Possible developing right lower lobe infiltrate Moderate hiatal hernia Osteoporotic compression fracture mid thoracic spine chronicity indeterminate Dictated by: Leonides Burks M.D. on 06/09/2025 at 11:23 Approved by: Leonides Burks M.D. on 06/09/2025 at 11:25
== END ==
PROVIDERS: PCP Internal Medicine; Referring Provider Student in an Organized Health Care Education/Training Program; Visit Provider Student in an Organized Health Care Education/Training Program
DX: R06.02 Shortness of breath (principal); I51.7 Cardiomegaly; K44.9 Diaphragmatic hernia without obstruction or gangrene; M48.54XA Collapsed vertebra, not elsewhere classified, thoracic region, initial encounter for fracture
CPT/HCPCS: 71046

== ENCOUNTER → 2025-08-16 10:00 | Outpatient (CLI) | payer MEDICARE, OTHER, SELFPAY ==
[2020-06-06 21:45] VITALS: BMI 22.6
--- NOTE | 2025-08-16 10:01 | DI.RAD.S_ITS ---
PROCEDURE: XR DEXA AXIAL SKELETON INDICATIONS: Osteoporosis Screening COMPARISON: [facility], CR, XR DEXA AXIAL SKELETON, 07/25/2023, 12:40. [facility], CR, XR DEXA AXIAL SKELETON, 07/31/2021, 14:41. FINDINGS: Lumbar Spine (L1-L3): Bone mineral density is 0.898 g/cm2, T score -1.1. Since the most recent prior study, there has been an increase in bone mineral density by 8.3%. Left Femoral Neck: Bone mineral density is 0.576 g/cm2, T score -2.5. Left Hip: Bone mineral density 0.675 g/cm2, T score -2.2. Since the most recent prior study, there has been an increase in bone mineral density by 1.0%. Fracture Risk Calculation (when applicable): FRAX score not reported due to T-score less than or equal to -2.5. (T score greater or equal to -1.0 to: NORMAL) (T score from -1.1 to -2.4: OSTEOPENIA) (T score less than or equal to -2.5: OSTEOPOROSIS) IMPRESSION: By WHO criteria, patient has osteoporosis. Follow-up guidelines as follows: Osteoporosis: Consider a repeat DEXA and Vertebral Fracture Assessment (VFA) exam in 2 years or sooner if medically necessary, to reassess this patient's status. Osteopenia: Consider a repeat DEXA in 2-3 years to reassess this patient's status, or if there is a new clinical indication. Normal: Consider a repeat DEXA in 5 years or sooner, or if there is a new clinical indication. All treatment decisions require clinical judgment and consideration of individual patient factors, including patient preferences, comorbidities, previous drug use, risk factors not captured in the FRAX model (e.g., frailty, falls, vitamin D deficiency, increased bone turnover, interval significant decline in bone density ) and possible under- or over-estimation of fracture risk by FRAX. In addition, the NOF Guide recommends that FDA-approved medical therapies be considered in postmenopausal women and men age >= 50 years with a: * Hip or vertebral (clinical or morphometric) fracture * T-score of <=-2.5 at the spine or hip * Ten-year fracture probability by FRAX of >= 3% for hip fracture or >=20% for major osteoporotic fracture. Approved by: Braden Marcial M.D. on 08/16/2025 at 20:31
== END ==
LOC: RAD 10:00
PROVIDERS: PCP Internal Medicine; Referring Provider Internal Medicine Endocrinology, Diabetes & Metabolism; Visit Provider Internal Medicine Endocrinology, Diabetes & Metabolism
DX: M80.08XA Age-related osteoporosis with current pathological fracture, vertebra(e), initial encounter for fracture (principal)
CPT/HCPCS: 77080